=== PATIENT | male | born 1945 | race Caucasian/White ===

== ENCOUNTER → 2016-10-21 | Outpatient (CLI) | payer MEDICARE ==
[2016-10-21 10:18] LABS: Anion Gap 11 mmol/L; Blood Urea Nitrogen 23 mg/dL (9-20); Calcium 9.2 mg/dL (8.4-10.2); Carbon Dioxide 29 mmol/L (22-30); Chloride 102 mmol/L (98-107); Glucose 85 mg/dL (74-99); Non-African American GFR(MDRD) >60 (>60 ml/min/1.73 sqM); Potassium 4.3 mmol/L (3.5-5.1); Sodium 142 mmol/L (137-145)
[2016-10-21 11:00] LABS: Hemoglobin A1C 7.6 % (4.2-6.1)
== END | disposition home or self-care (01) ==
LOC: LABWHC1 09:02
PROVIDERS: ATTEND Internal Medicine
DX: E11.65 Type 2 diabetes mellitus with hyperglycemia (principal)
CPT/HCPCS: 36415; 80048; 83036

== ENCOUNTER → 2017-01-19 | Outpatient (CLI) | payer MEDICARE ==
[2017-01-19 08:10] LABS: Anion Gap 10 mmol/L; Blood Urea Nitrogen 21 mg/dL (9-20); Calcium 9.5 mg/dL (8.4-10.2); Carbon Dioxide 31 mmol/L (22-30); Chloride 101 mmol/L (98-107); Glucose 74 mg/dL (74-99); Non-African American GFR(MDRD) >60 (>60 ml/min/1.73 sqM); Potassium 3.9 mmol/L (3.5-5.1); Sodium 142 mmol/L (137-145)
[2017-01-19 15:59] LABS: Hemoglobin A1C 7.8 % (4.2-6.1)
== END | disposition home or self-care (01) ==
LOC: LABWHC1 06:54
PROVIDERS: ATTEND Internal Medicine
DX: E11.21 Type 2 diabetes mellitus with diabetic nephropathy (principal)
CPT/HCPCS: 36415; 80048; 83036

== ENCOUNTER → 2017-05-24 | Outpatient (CLI) | payer MEDICARE ==
[2017-05-24 07:28] LABS: EKG EKG PERFORMED
[2017-05-24 07:40] LABS: CH 32.3; CHCM 35.4; HCT 53.5 % (39.0-53.0); HDW 3.05; HGB 18.1 gm/dL (13.0-17.5); MCHC 33.8 g/dL (31.0-37.0); MCV 91.8 fL (80.0-100.0); Mean Platelet Volume 7.2; RBC 5.83 m/uL (4.30-5.90); RDW 14.7 % (11.5-15.5); WBC 9.9 k/uL (3.8-10.6)
[2017-05-24 07:42] LABS: Appearance,Urine Clear (Clear); Bilirubin,Urine Negative (Negative); Glucose,Urine (UA) Negative (Negative); Ketones,Urine Negative (Negative); Leukocyte Esterase,Urine Negative (Negative); Nitrite,Urine Negative (Negative); Protein,Urine Trace (Negative); Specific Gravity,Urine 1.011 (1.001-1.035); UA Billing (MACRO vs. MICRO) CHEM; Urobilinogen,Urine <2.0 mg/dL (<2.0)
[2017-05-24 07:50] LABS: INR 1.2 (<1.2); Partial Thromboplastin Time 24.5 sec (22.0-30.0); Prothrombin Time 11.7 sec (9.0-12.0)
[2017-05-24 07:51] LABS: ALT 31 U/L (21-72); AST 24 U/L (17-59); Alkaline Phosphatase 87 U/L (38-126); Anion Gap 11 mmol/L; Blood Urea Nitrogen 19 mg/dL (9-20); Calcium 9.5 mg/dL (8.4-10.2); Carbon Dioxide 25 mmol/L (22-30); Chloride 105 mmol/L (98-107); Glucose 93 mg/dL (74-99); Non-African American GFR(MDRD) >60 (>60 ml/min/1.73 sqM); Potassium 3.7 mmol/L (3.5-5.1); Sodium 141 mmol/L (137-145); Total Bilirubin 0.8 mg/dL (0.2-1.3); Total Protein 6.5 g/dL (6.3-8.2)
== END | disposition home or self-care (01) ==
LOC: LABPAT 06:57
PROVIDERS: ATTEND Orthopaedic Surgery
DX: Z01.810 Encounter for preprocedural cardiovascular examination (principal); M17.11 Unilateral primary osteoarthritis, right knee; Z01.812 Encounter for preprocedural laboratory examination
CPT/HCPCS: 80053; 81003; 85027; 85610; 85730; 87070; 93005

== ENCOUNTER 2017-05-31 05:43 | Inpatient (IN) | payer MEDICARE ==
[2017-05-24 13:09] VITALS: BMI 35.2
[~2017-05-31 05:43] MED LIST: ACETAMINOPHEN TAB 500 MG TAB PO ONE; MELOXICAM 7.5 MG TAB PO ONE; ceFAZolin 2 GM in SODIUM CHLORIDE 0.9% 100 ML IVPB ONE
[2017-05-31] MEDS ORDERED: HYDROmorphone 1 MG/ML 1 ML SYRINGE IVP PRN ×3 (05:53→09:33)
[2017-05-31] MEDS ORDERED: LIDOCAINE 1% 20 ML VIAL (10MG/ML) FOR IV START INTRADERMA PRN (05:53)
[2017-05-31] MEDS: LACTATED RINGERS 1,000 ML IV SCH (06:35)
[2017-05-31 06:39] LABS: Glucose,Whole Blood 180 mg/dL (75-99)
[2017-05-31] MEDS ORDERED: ONDANSETRON 4 MG/2 ML VIAL IVP ONE (06:53)
[2017-05-31] MEDS ORDERED: DEXAMETHASONE SOD PHOSPHATE 10 MG/ML 1 ML VIAL IV ONE (06:55)
[2017-05-31 07:02] LABS: INR 1.2 (<1.2); Prothrombin Time 11.8 sec (9.0-12.0)
[2017-05-31] MEDS ORDERED: PROPOFOL 10 MG/ML 20 ML VIAL IV ONE (07:08)
[2017-05-31] MEDS ORDERED: MIDAZOLAM 2 MG/2 ML VIAL ONE (07:08)
[2017-05-31] MEDS ORDERED: ePHEDrine SULFATE/0.9% NACL/PF 50 MG/5 ML SYRINGE IV ONE (07:08)
[2017-05-31] MEDS ORDERED: fentaNYL (PF) 50 MCG/ML 2 ML AMP ONE (07:08)
[2017-05-31] MEDS ORDERED: LACTATED RINGERS 1,000 ML IV ONE ×2 (07:50→08:48)
[2017-05-31] MEDS ORDERED: ceFAZolin 3,000 MG in SODIUM CHLORIDE 0.9% IRRIGATIO 3,000 ML IRRIGATION ONE (07:51)
[2017-05-31] MEDS ORDERED: MAGNESIUM HYDROXIDE 2,400 MG/10 ML CUP PO PRN (09:33)
[2017-05-31] MEDS ORDERED: HYDROcodone/APAP 5-325MG 1 EACH TAB PO PRN (09:33)
[2017-05-31] MEDS ORDERED: ONDANSETRON 4 MG/2 ML VIAL IVP PRN (09:33)
[2017-05-31] MEDS ORDERED: NALOXONE 0.4 MG/ML 1 ML VIAL IV PRN (09:33)
[2017-05-31 09:48] LABS: Glucose,Whole Blood 180 mg/dL (75-99)
--- NOTE | 2017-05-31 09:51 | XR ---
EXAMINATION TYPE: XR knee limited RT DATE OF EXAM: 05/31/2017 CLINICAL HISTORY: Right knee pain and arthritis status post total knee replacement. TECHNIQUE: Portable AP and crosstable lateral views of the right knee are obtained immediately posto peratively. COMPARISON: None FINDINGS: Metallic hardware from total right knee arthroplasty is seen and appears satisfactory in a lignment and position. There is evidence of recent surgery with diffuse subcutaneous gas noted. IMPRESSION: METALLIC HARDWARE FROM TOTAL RIGHT KNEE ARTHROPLASTY IS SATISFACTORY IN ALIGNMENT.
[2017-05-31] MEDS: HYDROmorphone 1 MG/ML 1 ML SYRINGE IVP PRN ×2 (10:42→14:40)
[2017-05-31 11:53] LABS: Glucose,Whole Blood 226 mg/dL (75-99)
[2017-05-31] MEDS: HYDROcodone/APAP 5-325MG 1 EACH TAB PO PRN ×2 (12:22→23:17)
--- NOTE | 2017-05-31 13:56 | P.CONS ---
History of Present Illness - Reason for Consult Consult date: 05/31/17 medical management Requesting physician: Christiano Chamberlain - Chief Complaint post right knee arthroplasty - History of Present Illness 71-year-old male with past medical history of hypertension and diabetes. Patient presented for an elective right knee total arthroplasty. Patient reports long-standing history of osteoarthritis with progressive worsening of his pain to a point where it's affecting his activities of daily living. Patient has had a knee replacement on his left knee with good outcomes in the decided to have his right knee replacement on recommendations from his orthopedic doctor. Patient is seen today postoperatively where he tolerated the procedure well and there were no immediate complications observed. Patient still has the Obrien catheter in place he did not pass gas as he did not eat yet. He denies any nausea or vomiting denies any abdominal pain chest pain or trouble breathing. He reports that his right knee pain is controlled and currently minimal. 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 Patient was started on Coumadin preop in anticipation of his knee surgery. Review of Systems Constitutional: Patient reports no fever, no chills, no night sweating, no significant weight changes Eyes: Patient reports no visual changes, no eye pain ENT: Patient reports no ear pain, no rhinorrhea, no sore throat Cardiovascular: Patient reports no chest pain, no exertional dyspnea, no peripheral leg edema, no orthopnea, no paroxysmal nocturnal dyspnea Respiratory:Patient reports no cough, no wheezing, no shortness of breath Gastrointestinal: Patient reports no diarrhea, no constipation, no nausea no vomiting, no abdominal pain Genitourinary: Patient reports no dysuria, no hematuria, no changes in urinary habits, no genital lesions Musculoskeletal: Patient reports no muscle pain, . Patient admits to chronic low back pain and degenerative joint disease Psychiatric: Patient reports no changes in mood or memory, no suicidal ideation , no anxiety Endocrine: Patient reports no heat intolerance, no cold intolerance, no excessive thirst, no polyuria Neurological: Patient reports no focal neurologic deficits, no weakness, no numbness, no tingling Hem/Lymphatic: Patient reports no bleeding tendency, no bruising, no swollen lymph glands Allergic/Immun: Patient reports no recent allergic reactions Skin: Patient reports no rashes, no pruritis, no ulcers Past Medical History Past Medical History: 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 RT KNEE OA. History of Any Multi-Drug Resistant Organisms: None Reported Past Surgical History: Joint Replacement, Orthopedic Surgery Additional Past Surgical History / Comment(s): TOTAL LT KNEE. RYLAND SHOULDERS. RYLAND CTR. RT GREAT TOE. SPLENECTOMY. Past Anesthesia/Blood Transfusion Reactions: Postoperative Nausea & Vomiting ( PONV) Smoking Status: Never smoker - Past Family History Brother(s) Family Medical History: Cancer Additional Family Medical History / Comment(s): History of Parkinson's disease in his father with questionable history of Chuy's disease Medications and Allergies Home Medications and Allergies Comment(s): Home medications were reviewed Home Medications Medication Instructions Recorded Confirmed Type Aspirin 325 mg PO DAILY 05/24/17 05/31/17 History Atenolol/Chlorthalidone 1 tab PO DAILY 05/24/17 05/31/17 History [Atenolol-Chlorthalidone 50-25] Atorvastatin [Lipitor] 10 mg PO DAILY 05/24/17 05/31/17 History Ibuprofen [Motrin] 800 mg PO TID PRN 05/24/17 05/31/17 History Insulin Aspart Protam & Aspart 60 unit SQ DAILY@0800,1700 05/24/17 05/31/17 History [NovoLOG MIX 70-30 Flexpen] Losartan Potassium [Losartan 100 mg PO DAILY 05/24/17 05/31/17 History Potassium] Potassium Chloride [K-Tab ER] 10 meq PO BID 05/24/17 05/31/17 History amLODIPine [Norvasc] 5 mg PO DAILY 05/24/17 05/31/17 History Warfarin Sodium [Coumadin] 7.5 mg PO DIRECTED 05/31/17 05/31/17 History Warfarin [Coumadin] 2.5 mg PO DAILY 05/31/17 05/31/17 History Allergies Allergy/AdvReac Type Severity Reaction Status Date / Time No Known Allergies Allergy Verified 05/31/17 06:19 Physical Exam Vitals: Vital Signs Temp Pulse Pulse Resp BP BP Pulse Ox 05/31/17 12:35 55 L 18 149/84 94 L 05/31/17 12:15 56 L 18 150/75 95 05/31/17 12:00 55 L 18 153/85 95 05/31/17 11:45 54 L 18 157/99 95 05/31/17 11:30 53 L 18 157/89 94 L 05/31/17 11:15 55 L 18 145/79 94 L 05/31/17 11:00 53 L 18 141/90 95 05/31/17 10:46 97.6 F 57 L 18 144/88 05/31/17 10:45 55 L 18 141/90 94 L 05/31/17 10:30 97.5 F L 54 L 18 149/89 94 L 05/31/17 10:10 50 L 16 134/75 97 05/31/17 09:55 48 L 16 132/70 94 L 05/31/17 09:40 49 L 16 126/73 97 05/31/17 09:25 96.8 F L 51 L 12 132/73 96 05/31/17 06:31 96.1 F L 56 L 18 177/92 100 Intake and Output 05/30/17 05/31/17 05/31/17 22:59 06:59 14:59 Intake Total 200 2151 Output Total 325 Balance 200 1826 Intake: IV 200 2151 Output: Urine 275 Estimated Blood Loss 50 Other: Weight 117.934 kg Patient Weight 06/01/17 06:59 Weight 117.934 kg Constitutional: No acute distress, conversant, pleasant Eyes: Anicteric sclerae, moist conjunctiva, no lid-lag Pupils equal round 2 mm bilaterally reactive to light ENMT: NC/AT Oropharynx clear, no erythema, exudates Neck: Supple, FROM, no masses, or JVD No carotid bruits No thyromegaly Lungs: Clear to auscultation Clear to percussion Normal respiratory effort, no accessory muscle use Cardiovascular: Heart regular in rate and rhythm, No murmurs, gallops, or rubs No peripheral edema Abdominal: Soft Nontender, no guarding, rebound or rigidity Abdomen moving with respiration Normoactive bowel sounds No hepatomegaly, No splenomegaly No palpable mass No abdominal wall hernia noted Skin: Normal temperature, tone, texture, turgor No induration No subcutaneous nodules No rash, lesions No ulcers Extremities: No digital cyanosis No clubbing Pedal pulses intact and symmetrical Radial pulses intact and symmetrical No calf tenderness Right knee with surgical dressing and ice pack in place Psychiatric: Alert and oriented to person, place and time Appropriate affect fair judgement Neuro Muscles Strength 5/5 in all 4 extremities , except slight limitation on examining evaluation over his right lower extremity due to postoperative status Sensation to light touch grossly present throughout Cranial nerves II-XII grossly intact No focal sensory deficits Lymphatics: no palpable cervical or supraclavicular , or inguinal lymph nodes Results Labs: Abnormal Lab Results - Last 24 Hours (Table) 05/31/17 05/31/17 05/31/17 Range/Units 06:25 06:28 09:45 INR 1.2 H (<1.2) POC Glucose (mg/dL) 180 H 180 H (75-99) mg/dL 05/31/17 Range/Units 11:48 INR (<1.2) POC Glucose (mg/dL) 226 H (75-99) mg/dL Assessment and Plan (1) Diabetes mellitus Status: Acute (2) Hypertension Status: Acute (3) DVT prophylaxis Status: Acute (4) Degenerative joint disease involving multiple joints Status: Acute (5) Osteoarthritis of right knee Status: Acute Plan: Patient doing well postoperative day 0 post right total knee arthroplasty Pain control Physical therapy Orthopedics the following Continue with insulin 70/30 60 units twice a day, with insulin sliding scale for corrective doses Continue with Lipitor Continue with home blood pressure medications Resume aspirin DVT prophylaxis per or for recommendations patient was started on Coumadin preop will continue with postop Coumadin for 28 days Follow ortho protocol with goal INR 2-3 Advance diet as tolerated Consider removing Obrien catheter and follow up with postvoid residual bladder scanning and inform M.D. and residual volume higher than 200 mL Thank you for allowing us to participate in the care of this patient. We will follow peripherally. Do not hesitate to contact us with questions. Someone can be reached from the [facility] hospitalist group at all hours of the day at [phone].
[2017-05-31] MEDS: SODIUM CHLORIDE 0.9% 1,000 ML IV SCH (14:40)
[2017-05-31] MEDS ORDERED: PROMETHAZINE 25 MG TAB PO PRN (16:28)
[2017-05-31 17:15] LABS: Glucose,Whole Blood 279 mg/dL (75-99)
[2017-05-31] MEDS ORDERED: PROMETHAZINE INJ 6.25 MG in SODIUM CHLORIDE 0.9% 50 ML IVPB PRN (17:17)
[2017-05-31] MEDS: ceFAZolin 2 GM in SODIUM CHLORIDE 0.9% 100 ML IVPB SCH ×2 (17:21→23:17)
[2017-05-31] MEDS: INSULN ASP PRT/INSULIN ASPART 100 UNIT/ML 10 ML VIAL SQ SCH (17:48)
[2017-05-31] MEDS: INSULIN LISPRO (humaLOG) 300 UNIT/3 ML VIAL SQ SCH ×2 (17:48→20:58)
[2017-05-31] MEDS ORDERED: WARFARIN 7.5 MG TAB PO ONE (18:00)
[2017-05-31 20:48] LABS: Glucose,Whole Blood 321 mg/dL (75-99)
[2017-05-31] MEDS: SENNOSIDES-DOCUSATE SODIUM 1 EACH TAB PO SCH (21:00)
[2017-05-31] MEDS: POTASSIUM CHLORIDE ER 10 MEQ TAB.ER.PRT PO SCH (21:00)
[2017-06-01] MEDS: SODIUM CHLORIDE 0.9% 1,000 ML IV SCH ×3 (02:32→17:58)
[2017-06-01] MEDS: LACTATED RINGERS 1,000 ML IV SCH (02:33)
[2017-06-01] MEDS: HYDROcodone/APAP 5-325MG 1 EACH TAB PO PRN ×3 (06:14→19:54)
[2017-06-01 07:01] LABS: Glucose,Whole Blood 226 mg/dL (75-99)
[2017-06-01 07:31] LABS: Basophils % (A) 0 %; CH 30.8; CHCM 34.5; Eosinophils % (A) 0 %; HCT 43.8 % (39.0-53.0); HDW 2.95; HGB 15.4 gm/dL (13.0-17.5); Luc # (Auto) 0.24; Luc % (Auto) 2; Lymphocytes % (A) 19 %; MCH 31.5 pg (25.0-35.0); MCHC 35.1 g/dL (31.0-37.0); MCV 89.8 fL (80.0-100.0); Mean Platelet Volume 6.8; Monocytes # (A) 1.1 k/uL (0-1.0); Monocytes % (A) 7 %; Neutrophils # (A) 11.1 k/uL (1.3-7.7); Neutrophils % (A) 72 %; RBC 4.88 m/uL (4.30-5.90); RDW 13.8 % (11.5-15.5); WBC 15.5 k/uL (3.8-10.6); WBC (Perox) 15.35
[2017-06-01 07:33] LABS: Anion Gap 7 mmol/L; Blood Urea Nitrogen 28 mg/dL (9-20); Calcium 8.7 mg/dL (8.4-10.2); Carbon Dioxide 29 mmol/L (22-30); Chloride 98 mmol/L (98-107); Glucose 234 mg/dL (74-99); Non-African American GFR(MDRD) >60 (>60 ml/min/1.73 sqM); Potassium 5.1 mmol/L (3.5-5.1); Sodium 134 mmol/L (137-145)
[2017-06-01 07:35] LABS: INR 1.6 (<1.2); Prothrombin Time 15.3 sec (9.0-12.0)
[2017-06-01] MEDS: INSULIN LISPRO (humaLOG) 300 UNIT/3 ML VIAL SQ SCH ×4 (08:11→20:03)
[2017-06-01] MEDS: amLODIPine 5 MG TAB PO SCH (08:11)
[2017-06-01] MEDS: INSULN ASP PRT/INSULIN ASPART 100 UNIT/ML 10 ML VIAL SQ SCH ×2 (08:11→18:04)
[2017-06-01] MEDS: POTASSIUM CHLORIDE ER 10 MEQ TAB.ER.PRT PO SCH ×2 (08:12→19:54)
[2017-06-01] MEDS: ATENOLOL 50 MG TAB PO SCH (08:12)
[2017-06-01] MEDS: LOSARTAN 50 MG TAB PO SCH (08:12)
[2017-06-01] MEDS: CHLORTHALIDONE 25 MG TAB PO SCH (08:12)
[2017-06-01] MEDS: ATORVASTATIN 10 MG TAB PO SCH (08:12)
--- NOTE | 2017-06-01 08:28 | P.PN ---
Subjective Principal diagnosis: Primary osteoarthritis right knee. Status post total right knee arthroplasty. This is a 71-year-old male who is status post total right knee arthroplasty. He is doing well from an orthopedic standpoint. He has no new complaints or concerns today. Vital signs and labs are stable. Objective - Vital Signs Vital signs: Vital Signs Temp 98.0 F 06/01/17 07:00 Pulse 66 06/01/17 07:00 Resp 12 06/01/17 07:00 BP 154/68 06/01/17 07:00 Pulse Ox 94 L 06/01/17 07:00 Intake & Output 05/31/17 06/01/17 06/01/17 18:59 06:59 18:59 Intake Total 3231 1300 Output Total 1600 1100 Balance 1631 200 Weight 117.934 kg Intake: IV 2151 Intake, IV Titration 500 300 Amount Lactated Ringers 1,000 ml 500 As IV .STK-MED ONE Rx#: [id number] Sodium Chloride 0.9% 1, 300 000 ml @ 100 mls/hr IV . Q10H [facility] Rx#:[id number] Oral 580 1000 Output: Urine 1550 Stool 1100 Estimated Blood Loss 50 Other: Voiding Method Indwelling Catheter - Exam This is a pleasant 71-year-old male in no acute distress. He is alert and oriented 3. Exam of the right knee reveals that his incision looks good. There is no erythema or ecchymosis. There is mild soft tissue swelling about the knee. The Dermabond glue is intact. There is no drainage on the dressing. He has full foot and ankle motion without difficulty or pain. Neurovascular status to the lower extremity is intact. - Labs CBC & Chem 7: 06/01/17 06:42 06/01/17 06:42 Labs: Abnormal Lab Results - Last 24 Hours (Table) 05/31/17 05/31/17 05/31/17 Range/Units 09:45 11:48 17:09 WBC (3.8-10.6) k/uL Neutrophils # (1.3-7.7) k/uL Monocytes # (0-1.0) k/uL PT (9.0-12.0) sec INR (<1.2) Sodium (137-145) mmol/L BUN (9-20) mg/dL Glucose (74-99) mg/dL POC Glucose (mg/dL) 180 H 226 H 279 H (75-99) mg/dL 05/31/17 06/01/17 06/01/17 Range/Units 20:47 06:42 06:42 WBC 15.5 H (3.8-10.6) k/uL Neutrophils # 11.1 H (1.3-7.7) k/uL Monocytes # 1.1 H (0-1.0) k/uL PT 15.3 H (9.0-12.0) sec INR 1.6 H (<1.2) Sodium (137-145) mmol/L BUN (9-20) mg/dL Glucose (74-99) mg/dL POC Glucose (mg/dL) 321 H (75-99) mg/dL 06/01/17 06/01/17 Range/Units 06:42 06:58 WBC (3.8-10.6) k/uL Neutrophils # (1.3-7.7) k/uL Monocytes # (0-1.0) k/uL PT (9.0-12.0) sec INR (<1.2) Sodium 134 L (137-145) mmol/L BUN 28 H (9-20) mg/dL Glucose 234 H (74-99) mg/dL POC Glucose (mg/dL) 226 H (75-99) mg/dL Assessment and Plan (1) Status post total knee replacement, right Status: Acute (2) Osteoarthritis of right knee Status: Acute Plan: The clinical findings are discussed the patient. We'll begin physical therapy today. We are planning discharge to home tomorrow versus Tuesday.
[2017-06-01 14:07] LABS: Glucose,Whole Blood 244 mg/dL (75-99)
[2017-06-01 14:08] LABS: Glucose,Whole Blood 236 mg/dL (75-99)
[2017-06-01 17:00] LABS: Glucose,Whole Blood 315 mg/dL (75-99)
[2017-06-01] MEDS ORDERED: WARFARIN 5 MG TAB PO SCH (18:00)
--- NOTE | 2017-06-01 19:07 | P.PN ---
Subjective Principal diagnosis: Patient seen and examined today in follow-up of his diabetes postop management 71-year-old male with past medical history of hypertension and diabetes. Patient presented for an elective right knee total arthroplasty. He denies any chest pain or trouble patient reports that pain is well tolerated, reports beginning physical therapy today. He denies any chest pain or trouble breathing. By reviewing his lab seems like his blood sugar is running high. Otherwise Obrien catheter was removed today patient passed urine, vision passing gases no bowel movement yet. He is tolerating by mouth intake denies any nausea vomiting. Patient possibly will be discharged tomorrow or day after Objective - Vital Signs Vital signs: Vital Signs Temp 98.5 F 06/01/17 14:34 Pulse 69 06/01/17 14:34 Resp 16 06/01/17 14:34 BP 156/89 06/01/17 14:34 Pulse Ox 94 L 06/01/17 14:34 Intake & Output 05/31/17 06/01/17 06/01/17 18:59 06:59 18:59 Intake Total 3231 1300 Output Total 1600 1100 350 Balance 1631 200 -350 Weight 117.934 kg Intake: IV 2151 Intake, IV Titration 500 300 Amount Lactated Ringers 1,000 ml 500 As IV .K-MED ONE Rx#: [id number] Sodium Chloride 0.9% 1, 300 000 ml @ 100 mls/hr IV . Q10H [facility] Rx#:[id number] Oral 580 1000 Output: Urine 1550 350 Uretheral (Obrien) 350 Stool 1100 Estimated Blood Loss 50 Other: Voiding Method Indwelling Catheter # Voids 2 - Exam Constitutional: vital signs stable, Not in acute distress, pleasant, conversant Lungs: Clear to auscultation bilaterally, clear to percussion, normal respiratory effort Cardiovascular: Regular rate and rhythm, no murmurs, no gallops, no rubs, no peripheral edema Extremities: Right leg is wrapped with surgical dressing, patient has limited range of motion of right knee due to tight dressing, peripheral pulses palpable and equal over bilateral radial arteries and dorsalis pedis artery, no calf muscle tenderness Psych: Alert, oriented to place, person and time Labs reviewed - Labs CBC & Chem 7: 06/01/17 06:42 06/01/17 06:42 Labs: Abnormal Lab Results - Last 24 Hours (Table) 05/31/17 06/01/17 06/01/17 Range/Units 20:47 06:42 06:42 WBC 15.5 H (3.8-10.6) k/uL Neutrophils # 11.1 H (1.3-7.7) k/uL Monocytes # 1.1 H (0-1.0) k/uL PT 15.3 H (9.0-12.0) sec INR 1.6 H (<1.2) Sodium (137-145) mmol/L BUN (9-20) mg/dL Glucose (74-99) mg/dL POC Glucose (mg/dL) 321 H (75-99) mg/dL 06/01/17 06/01/17 06/01/17 Range/Units 06:42 06:58 11:24 WBC (3.8-10.6) k/uL Neutrophils # (1.3-7.7) k/uL Monocytes # (0-1.0) k/uL PT (9.0-12.0) sec INR (<1.2) Sodium 134 L (137-145) mmol/L BUN 28 H (9-20) mg/dL Glucose 234 H (74-99) mg/dL POC Glucose (mg/dL) 226 H 244 H (75-99) mg/dL 06/01/17 06/01/17 Range/Units 12:54 16:55 WBC (3.8-10.6) k/uL Neutrophils # (1.3-7.7) k/uL Monocytes # (0-1.0) k/uL PT (9.0-12.0) sec INR (<1.2) Sodium (137-145) mmol/L BUN (9-20) mg/dL Glucose (74-99) mg/dL POC Glucose (mg/dL) 236 H 315 H (75-99) mg/dL Assessment and Plan (1) Diabetes mellitus Status: Acute (2) Hypertension Status: Acute (3) DVT prophylaxis Status: Acute (4) Degenerative joint disease involving multiple joints Status: Acute (5) Osteoarthritis of right knee Status: Acute Plan: Patient is seen today postoperative day #1 doing well pain is well controlled in tolerated. To perspective physical therapy Further management per or throat Blood sugars are running high continue with long-acting insulin at current home dose. We'll add short-acting insulin 3 units 3 times a day prior to meals. Continue seen you with insulin sliding scale for corrective doses Continue with Coumadin dosing by pharmacy per orthopedic protocol for DVT prophylaxis this should be continued after discharge per orthopedic recommendations Continue with physical therapy Mild leukocytosis and afebrile this is most likely secondary to postoperative period reactive leukocytosis Continue with Lipitor, aspirin systolic Blood pressure in the 150s, optimize pain control Patient is stable from internal medicine standpoint for discharge
[2017-06-01] MEDS: SENNOSIDES-DOCUSATE SODIUM 1 EACH TAB PO SCH (19:54)
[2017-06-01 19:59] LABS: Glucose,Whole Blood 284 mg/dL (75-99)
[2017-06-02] MEDS: HYDROcodone/APAP 5-325MG 1 EACH TAB PO PRN ×2 (03:54→11:20)
[2017-06-02] MEDS: SODIUM CHLORIDE 0.9% 1,000 ML IV SCH (05:15)
[2017-06-02] MEDS: LACTATED RINGERS 1,000 ML IV SCH (05:15)
[2017-06-02 07:10] LABS: Glucose,Whole Blood 103 mg/dL (75-99)
[2017-06-02 07:20] VITALS: BP 170/78; PULSE 68; RESP 12; TEMP 98
[2017-06-02 07:22] LABS: INR 1.9 (<1.2); Prothrombin Time 18.3 sec (9.0-12.0)
[2017-06-02] MEDS: INSULIN LISPRO (humaLOG) 300 UNIT/3 ML VIAL SQ SCH ×4 (07:26→12:28)
[2017-06-02 07:27] LABS: Glucose,Whole Blood 110 mg/dL (75-99)
[2017-06-02 07:34] LABS: CH 30.9; CHCM 34.8; HCT 43.2 % (39.0-53.0); HGB 15.3 gm/dL (13.0-17.5); MCH 31.8 pg (25.0-35.0); MCHC 35.5 g/dL (31.0-37.0); MCV 89.4 fL (80.0-100.0); RBC 4.83 m/uL (4.30-5.90); RDW 13.8 % (11.5-15.5); WBC 15.9 k/uL (3.8-10.6); WBC (Perox) 16.22
[2017-06-02] MEDS: ATENOLOL 50 MG TAB PO SCH (07:47)
[2017-06-02] MEDS: LOSARTAN 50 MG TAB PO SCH (07:48)
[2017-06-02] MEDS: ATORVASTATIN 10 MG TAB PO SCH (07:48)
[2017-06-02] MEDS: POTASSIUM CHLORIDE ER 10 MEQ TAB.ER.PRT PO SCH (07:48)
[2017-06-02] MEDS: CHLORTHALIDONE 25 MG TAB PO SCH (07:48)
[2017-06-02] MEDS: INSULN ASP PRT/INSULIN ASPART 100 UNIT/ML 10 ML VIAL SQ SCH (07:54)
[2017-06-02 07:57] LABS: Add Differential Manual Differential
[2017-06-02 08:01] LABS: Nucleated Red Blood Cells 0 /100 WBC (0-0); Total Cells Counted 100
--- NOTE | 2017-06-02 08:28 | P.DS ---
Providers Date of admission: 05/31/17 05:43 Expected date of discharge: 06/02/17 Attending physician: Christiano Chamberlain Consults: 05/31/17 09:33 Consult Physician Routine Consulting Provider: Te Tyler Consult Reason/Comments: Medical management; manage anti-coagualtion Do you want consulting provider notified?: Yes 05/31/17 11:03 Consult Physician Routine Consulting Provider: Cortez Daley Consult Reason/Comments: medical management Do you want consulting provider notified?: Already Contacted Primary care physician: Te Tyler - Discharge Diagnosis(es) (1) Status post total knee replacement, right Current Visit: Yes Status: Acute (2) Osteoarthritis of right knee Current Visit: Yes Status: Acute Hospital Course: This is a 71-year-old male who was last seen with complaint of continued right knee pain. The patient has a known history of degenerative arthritis of the right knee and presents to discuss surgical options. After discussion and consideration the patient elects to proceed with total right knee arthroplasty. The patient is seen preoperatively by his primary care physician and cleared for surgery. The patient is admitted to [facility] for total right knee arthroplasty. The procedure is performed without complication or sequelae. Patient is doing well postoperatively. Vital signs are stable at discharge. Labs are stable at discharge. the patient is ambulating well with walker with minimal assistance. He has a slight amount of drainage the distal incision. Otherwise Dermabond glue is intact. There is a small blister to the distal lateral aspect of the incision which is intact. The patient is discharged to home on postop day #2 pending medical clearance. Please see orders and refer to the [facility] rec for accurate list of medications. Patient Condition at Discharge: Good Plan - Discharge Summary New Discharge Prescriptions: New HYDROcodone/APAP 5-325MG [[place] 5-325] 1 - 2 each PO Q4-6H PRN #90 tab PRN Reason: Pain Aspirin 325 mg PO BID #60 tab Warfarin [Coumadin] 2.5 mg PO Q2D #1 tab Sennosides-Docusate Sodium [Senokot-S] 1 tab PO BID #60 tablet No Action amLODIPine [Norvasc] 5 mg PO DAILY Atenolol/Chlorthalidone [Atenolol-Chlorthalidone 50-25] 1 tab PO DAILY Potassium Chloride [K-Tab ER] 10 meq PO BID Ibuprofen [Motrin] 800 mg PO TID PRN PRN Reason: Pain Losartan Potassium [Losartan Potassium] 100 mg PO DAILY Insulin Aspart Protam & Aspart [NovoLOG MIX 70-30 Flexpen] 60 unit SQ DAILY@ 0800,1700 Aspirin 325 mg PO DAILY Atorvastatin [Lipitor] 10 mg PO DAILY Warfarin [Coumadin] 2.5 mg PO DAILY Warfarin Sodium [Coumadin] 7.5 mg PO DIRECTED Discharge Medication List Aspirin 325 mg PO DAILY 05/24/17 [History] Atenolol/Chlorthalidone [Atenolol-Chlorthalidone 50-25] 1 tab PO DAILY 05/24/17 [History] Atorvastatin [Lipitor] 10 mg PO DAILY 05/24/17 [History] Ibuprofen [Motrin] 800 mg PO TID PRN 05/24/17 [History] Insulin Aspart Protam & Aspart [NovoLOG MIX 70-30 Flexpen] 60 unit SQ DAILY@0800 ,1700 05/24/17 [History] Losartan Potassium [Losartan Potassium] 100 mg PO DAILY 05/24/17 [History] Potassium Chloride [K-Tab ER] 10 meq PO BID 05/24/17 [History] amLODIPine [Norvasc] 5 mg PO DAILY 05/24/17 [History] Warfarin Sodium [Coumadin] 7.5 mg PO DIRECTED 05/31/17 [History] Warfarin [Coumadin] 2.5 mg PO DAILY 05/31/17 [History] Aspirin 325 mg PO BID #60 tab 06/01/17 [Rx] HYDROcodone/APAP 5-325MG [[place] 5-325] 1 - 2 each PO Q4-6H PRN #90 tab 06/01/17 [Rx] Sennosides-Docusate Sodium [Senokot-S] 1 tab PO BID #60 tablet 06/01/17 [Rx] Warfarin [Coumadin] 2.5 mg PO Q2D #1 tab 06/01/17 [Rx] Follow up Appointment(s)/Referral(s): [facility], [NON-STAFF] - As Needed Christiano Chamberlain DO [Doctor of Osteopathic Medicine] - 2 Weeks Ambulatory/Diagnostic Orders: Continuous Passive Motion (CPM) Machine [DME.AMB1] Time Frame: 3 Weeks, Facility : [facility], Location: Case Management Discharge Disposition: HOME WITH HOME HEALTH SERVICES
[2017-06-02] MEDS: amLODIPine 5 MG TAB PO SCH (09:24)
[2017-06-02 11:27] LABS: Glucose,Whole Blood 183 mg/dL (75-99)
--- NOTE | 2017-06-02 11:49 | P.PN ---
Subjective Principal diagnosis: Patient seen and examined today in follow-up of his diabetes postop management 71-year-old male with past medical history of hypertension and diabetes. Patient presented for an elective right knee total arthroplasty. He denies any chest pain or trouble patient reports that pain is well tolerated, reports beginning physical therapy today. He denies any chest pain or trouble breathing. patient seen and examined today, he is doing well, denies any chest pain or SOB , denies any fever or chills, he is able to participate with therapy and he is happy with the outcomes of his surgery. I discussed with him the possibility of requiring a preprandial short acting insulin , but he preferred to continue with his current OP regimen of insulin and to defer further management to his PCP . Objective - Vital Signs Vital signs: Vital Signs Temp 98 F 06/02/17 07:00 Pulse 68 06/02/17 07:00 Resp 12 06/02/17 07:00 BP 170/78 06/02/17 07:00 Pulse Ox 96 06/02/17 07:00 Intake & Output 06/01/17 06/02/17 06/02/17 18:59 06:59 18:59 Intake Total 750 Output Total 350 600 Balance -350 150 Weight 117.934 kg Intake: Oral 750 Output: Urine 350 600 Uretheral (Obrien) 350 Other: Voiding Method Indwelling Catheter # Voids 2 1 - Exam Constitutional: vital signs stable, Not in acute distress, pleasant, conversant Lungs: Clear to auscultation bilaterally ,no wheezes , rhonci or rales , normal respiratory effort Cardiovascular: Regular rate and rhythm, no murmurs, no gallops, no rubs, no peripheral edema Extremities: Right knee is wrapped with surgical dressing, patient is able to move his right LE with no pain , no calf muscle tenderness Psych: Alert, oriented to place, person and time Labs reviewed - Labs CBC & Chem 7: 06/02/17 06:34 06/01/17 06:42 Labs: Abnormal Lab Results - Last 24 Hours (Table) 06/01/17 06/01/17 06/01/17 Range/Units 11:24 12:54 16:55 WBC (3.8-10.6) k/uL Neutrophils # (Manual) (1.3-7.7) k/uL Lymphocytes # (Manual) (1.0-4.8) k/uL Monocytes # (Manual) (0-1.0) k/uL PT (9.0-12.0) sec INR (<1.2) POC Glucose (mg/dL) 244 H 236 H 315 H (75-99) mg/dL 06/01/17 06/02/17 06/02/17 Range/Units 19:45 06:34 06:34 WBC 15.9 H (3.8-10.6) k/uL Neutrophils # (Manual) 7.79 H (1.3-7.7) k/uL Lymphocytes # (Manual) 4.93 H (1.0-4.8) k/uL Monocytes # (Manual) 2.54 H (0-1.0) k/uL PT 18.3 H (9.0-12.0) sec INR 1.9 H (<1.2) POC Glucose (mg/dL) 284 H (75-99) mg/dL 06/02/17 06/02/17 06/02/17 Range/Units 06:54 07:24 11:25 WBC (3.8-10.6) k/uL Neutrophils # (Manual) (1.3-7.7) k/uL Lymphocytes # (Manual) (1.0-4.8) k/uL Monocytes # (Manual) (0-1.0) k/uL PT (9.0-12.0) sec INR (<1.2) POC Glucose (mg/dL) 103 H 110 H 183 H (75-99) mg/dL Assessment and Plan (1) Diabetes mellitus Status: Acute (2) Hypertension Status: Acute (3) DVT prophylaxis Status: Acute (4) Degenerative joint disease involving multiple joints Status: Acute (5) Osteoarthritis of right knee Status: Acute Plan: Patient is seen today postoperative day #2 doing well pain is well controlled patient is being discharged home per orthopedics blood sugar is better controlled today, his A1C is 7.8 , he was provided with a script for blood sugar monitoring , I suggested starting a short acting preprandial insulin , but he preferred to defer any further management to further discussion with his PCP, based on how his blood sugar will be running once he is at home . DVT PPx post op deferred to orthopedic. hemoglobin stable post op Mild leukocytosis and afebrile this is most likely reactive to postoperative period Patient is stable from internal medicine standpoint for discharge
--- NOTE | 2017-06-03 12:25 | OP ---
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 POSTOPERATIVE DIAGNOSIS: Degenerative joint disease right knee. PROCEDURE PERFORMED: Right total knee replacement arthroplasty utilizing a Mary Press-Fit component. DESCRIPTION OF PROCEDURE: The patient was taken to the operative suite and placed in supine position. Spinal anesthesia was performed . Betadine prep was carried out from mid thigh and mid calf. Sterile drapes applied in the usual manner. A parapatellar incision was developed. The median retinaculum was incised patellar everted and dislocated laterally. The knee brought into flexion position held in the leg borrero. The intramedullary cutting enmanuel was initiated and was . The size 8 femoral component was and initiated. Provisionary component was impacted into position and . The tibial cutting guide was brought into alignment and appropriate was developed. The wafer was removed and the medial and lateral meniscus were excised. A size 6 tibial tray was selected. The tray was marked for position and appropriate peg holes developed. The knee had been examined had been inserted and selected . The patella was shaped with shelving planer. A size 32 was selected and secured to the for position. The bone was examined and component. All provisionary components were removed and Pulsavac antibiotic solution utilized femoral component. The was a size 8, femoral size 6 trabecular metal three hole peg plate inserted and holes impacted. The final femoral component was impacted into position. patella components inserted peg holes and impacted. The final size 12 mm polyethylene component was inserted into the and locked into position. The knee was placed into slight flexion and pneumatic tourniquet was deflated. The knee was irrigated with Pulsavac antibiotic solution. The superficial . The knee was placed in slight flexion and pneumatic tourniquet . The medial retinaculum was approximated with #3 Vicryl suture in horizontal mattress fashion. #2 quill sutures were used to reenforce in a running suture fashion. 2- 0 Vicryl suture was utilized to close the subcutaneous tissue. A 3-0 Quill suture was utilized for subcuticular closure. Dermabond was utilized to secure the wound. Betadine, Sterile pressure dressing was applied. Pneumatic tourniquet was deflated. The patient transferred to the recovery room in satisfactory postop condition. GROSS PATHOLOGY: There was compartmental right knee. MMODL / IJN: [id number] /
== END 2017-06-02 13:05 | disposition home health service (06) | DRG 470 ==
LOC: 2ORMAIN 05:43 → 3SUR 09:30
PROVIDERS: ADMIT Orthopaedic Surgery; ATTEND Orthopaedic Surgery
PROC: 0SRC0JA Replacement of Right Knee Joint with Synthetic Substitute, Uncemented, Open Approach (ICD-10-PCS; principal; 2017-05-31 07:00)
DX: M17.11 Unilateral primary osteoarthritis, right knee (principal); I10 Essential (primary) hypertension; E11.9 Type 2 diabetes mellitus without complications; E78.5 Hyperlipidemia, unspecified; Z96.652 Presence of left artificial knee joint; Z82.0 Family history of epilepsy and other diseases of the nervous system; Z79.899 Other long term (current) drug therapy; Z90.81 Acquired absence of spleen; Z85.72 Personal history of non-Hodgkin lymphomas; Z79.82 Long term (current) use of aspirin; Z79.4 Long term (current) use of insulin; Z79.01 Long term (current) use of anticoagulants; Z79.1 Long term (current) use of non-steroidal anti-inflammatories (NSAID)
CPT/HCPCS: 80048; 85025; 85610; 88300

== ENCOUNTER 2017-06-09 14:51 | Emergency (ER) | payer MEDICARE ==
[2017-06-09 15:15] VITALS: RESP 18
[2017-06-09] MEDS ORDERED: RX INFO: IV CONTRAST WAS GIVEN 1 EACH MISC MISCELLANE PRN (15:27)
[2017-06-09] MEDS ORDERED: SODIUM CHLORIDE 0.9% 500 ML IV STA (15:27)
[2017-06-09 16:21] LABS: Basophils # (A) 0.1 k/uL (0-0.2); Basophils % (A) 0 %; CH 31.3; CHCM 35.4; Eosinophils # (A) 0.1 k/uL (0-0.7); Eosinophils % (A) 1 %; HDW 3.28; HGB 16.3 gm/dL (13.0-17.5); Luc # (Auto) 0.21; Luc % (Auto) 2; Lymphocytes # (A) 2.3 k/uL (1.0-4.8); Lymphocytes % (A) 20 %; MCH 30.8 pg (25.0-35.0); MCHC 34.6 g/dL (31.0-37.0); Mean Platelet Volume 6.4; Monocytes # (A) 0.8 k/uL (0-1.0); Monocytes % (A) 6 %; Neutrophils # (A) 8.4 k/uL (1.3-7.7); Neutrophils % (A) 71 %; RBC 5.28 m/uL (4.30-5.90); RDW 14.3 % (11.5-15.5); WBC 11.8 k/uL (3.8-10.6); WBC (Perox) 11.51
[2017-06-09 16:22] LABS: Appearance,Urine Clear (Clear); Bilirubin,Urine Negative (Negative); Glucose,Urine (UA) 1+ (Negative); Ketones,Urine Negative (Negative); Leukocyte Esterase,Urine Negative (Negative); Nitrite,Urine Negative (Negative); Protein,Urine Trace (Negative); Specific Gravity,Urine 1.013 (1.001-1.035); UA Billing (MACRO vs. MICRO) CHEM; Urobilinogen,Urine <2.0 mg/dL (<2.0)
[2017-06-09 16:29] LABS: ALT 38 U/L (21-72); AST 33 U/L (17-59); Alkaline Phosphatase 126 U/L (38-126); Amylase 31 U/L (30-110); Anion Gap 10 mmol/L; Blood Urea Nitrogen 21 mg/dL (9-20); Calcium 9.6 mg/dL (8.4-10.2); Carbon Dioxide 29 mmol/L (22-30); Chloride 98 mmol/L (98-107); Glucose 192 mg/dL (74-99); Non-African American GFR(MDRD) >60 (>60 ml/min/1.73 sqM); Potassium 4.2 mmol/L (3.5-5.1); Sodium 137 mmol/L (137-145); Total Bilirubin 1.4 mg/dL (0.2-1.3); Total Protein 6.7 g/dL (6.3-8.2)
--- NOTE | 2017-06-09 17:24 | CT ---
EXAMINATION TYPE: CT abdomen pelvis w con DATE OF EXAM: 06/09/2017 COMPARISON: NONE HISTORY: Pain with Constipation and difficulty urinating. CT DLP: 1785 mGycm. Automated exposure control for dose reduction was used. TECHNIQUE: Helical acquisition of images was performed from the lung bases through the pelvis. CONTRAST: Performed without Oral Contrast and with IV Contrast, patient injected with 100 mL of Omnip aque 300. FINDINGS: LUNG BASES: There is no acute process, but coronary calcifications are incidentally noted. LIVER/GB: No significant abnormality is appreciated, but cholelithiasis is noted. PANCREAS: No significant abnormality is seen. SPLEEN: No significant abnormality is seen. ADRENALS: No significant abnormality is seen, but a homogeneous fat attenuation right adrenal nodule is noted, consistent with incidental myelolipoma. KIDNEYS: No significant abnormality is seen, but a 3 cm right simple appearing renal cyst noted. FREE AIR: No free air is visualized. RETROPERITONEAL ADENOPATHY: None visualized in the abdomen. REPRODUCTIVE ORGANS: No significant abnormality is seen URINARY BLADDER: Obrien catheter in place, with an undistended bladder at the moment of CT imaging. T he prostate has unremarkable CT appearance. PELVIC ADENOPATHY: There is no mike adenopathy, but bilateral small lymph nodes are noted in the ob turator and external iliac mckay positions, right greater than left. OSSEOUS STRUCTURES: No significant abnormality is seen. BOWEL: No significant abnormality is seen. OTHER: The vasculature is unremarkable. IMPRESSION: 1. NO ACUTE ABDOMINOPELVIC PROCESS. 2. INCIDENTAL FINDINGS NOTED.
[2017-06-09] MEDS ORDERED: NA PHOS,M-B/NA PHOS,DI-BA 133 ML ENEMA RECTAL STA (17:34)
[2017-06-09] MEDS ORDERED: MAGNESIUM CITRATE 296 ML BOTTLE PO ONE (17:35)
--- NOTE | 2017-06-09 17:49 | ED ---
Abdominal Pain HPI - General Chief Complaint: Abdominal Pain Stated Complaint: post knee surgery-no bowel movement Time Seen by Provider: 06/09/17 15:20 Source: patient, family Mode of arrival: ambulatory Limitations: no limitations - Related Data Home Medications Medication Instructions Recorded Confirmed Atenolol/Chlorthalidone 1 tab PO DAILY 05/24/17 06/09/17 [Atenolol-Chlorthalidone 50-25] Atorvastatin [Lipitor] 10 mg PO DAILY 05/24/17 06/09/17 Insulin Aspart Protam & Aspart 60 unit SQ DAILY@0800,1700 05/24/17 06/09/17 [NovoLOG MIX 70-30 Flexpen] Losartan Potassium [Losartan 100 mg PO DAILY 05/24/17 06/09/17 Potassium] Potassium Chloride [K-Tab ER] 10 meq PO BID 05/24/17 06/09/17 amLODIPine [Norvasc] 5 mg PO DAILY 05/24/17 06/09/17 HYDROcodone/APAP 5-325MG [Coleman 1 - 2 tab PO Q4-6H PRN 06/09/17 06/09/17 5-325] Warfarin [Coumadin] 2.5 mg PO Q48H 06/09/17 06/09/17 Previous Rx's Medication Instructions Recorded Sennosides-Docusate Sodium 1 tab PO BID #60 tablet 06/01/17 [Senokot-S] Allergies Allergy/AdvReac Type Severity Reaction Status Date / Time No Known Allergies Allergy Verified 06/09/17 16:11 Review of Systems ROS Statement: Those systems with pertinent positive or pertinent negative responses have been documented in the HPI. ROS Other: All systems not noted in ROS Statement are negative. Past Medical History Past Medical History: Cancer, Diabetes Mellitus, Hyperlipidemia, Hypertension, Osteoarthritis (OA) Additional Past Medical History / Comment(s): SPLEEN CA, 2006, REMOVED. RT KNEE OA. History of Any Multi-Drug Resistant Organisms: None Reported Past Surgical History: Joint Replacement, Orthopedic Surgery Additional Past Surgical History / Comment(s): TOTAL LT KNEE. [facility] SHOULDERS. [facility] CTR. RT GREAT TOE. SPLENECTOMY. Past Anesthesia/Blood Transfusion Reactions: Postoperative Nausea & Vomiting ( PONV) Past Psychological History: No Psychological Hx Reported Smoking Status: Never smoker Past Alcohol Use History: None Reported Past Drug Use History: None Reported - Past Family History Brother(s) Family Medical History: Cancer Additional Family Medical History / Comment(s): History of Parkinson's disease in his father with questionable history of [place]uy's disease General Exam Limitations: no limitations General appearance: alert, in no apparent distress Head exam: Present: atraumatic, normocephalic, normal inspection Eye exam: Present: normal appearance, PERRL, EOMI. Absent: scleral icterus, conjunctival injection, periorbital swelling ENT exam: Present: normal exam, mucous membranes moist Neck exam: Present: normal inspection. Absent: tenderness, meningismus, lymphadenopathy Respiratory exam: Present: normal lung sounds bilaterally. Absent: respiratory distress, wheezes, rales, rhonchi, stridor Cardiovascular Exam: Present: regular rate, normal rhythm, normal heart sounds. Absent: systolic murmur, diastolic murmur, rubs, gallop, clicks GI/Abdominal exam: Present: soft, normal bowel sounds. Absent: distended, tenderness, guarding, rebound, rigid Extremities exam: Present: normal inspection, full ROM, normal capillary refill. Absent: tenderness, pedal edema, joint swelling, calf tenderness Back exam: Present: normal inspection Neurological exam: Present: alert, oriented X3, CN II-XII intact Psychiatric exam: Present: normal affect, normal mood Skin exam: Present: warm, dry, intact, normal color. Absent: rash Course Vital Signs 06/09/17 15:12 Temperature 98.6 F Pulse Rate 73 Respiratory 18 Rate Blood Pressure 122/61 O2 Sat by Pulse 98 Oximetry Medical Decision Making - Medical Decision Making Patient complains of belly pain. CT is negative. - Lab Data Result diagrams: 06/09/17 16:04 06/09/17 16:04 Lab Results 06/09/17 06/09/17 06/09/17 Range/Units 16:04 16:04 16:04 WBC 11.8 H (3.8-10.6) k/uL RBC 5.28 (4.30-5.90) m/uL Hgb 16.3 (13.0-17.5) gm/dL Hct 47.0 (39.0-53.0) % MCV 89.0 (80.0-100.0) fL MCH 30.8 (25.0-35.0) pg MCHC 34.6 (31.0-37.0) g/dL RDW 14.3 (11.5-15.5) % Plt Count 614 H (150-450) k/uL Neutrophils % 71 % Lymphocytes % 20 % Monocytes % 6 % Eosinophils % 1 % Basophils % 0 % Neutrophils # 8.4 H (1.3-7.7) k/uL Lymphocytes # 2.3 (1.0-4.8) k/uL Monocytes # 0.8 (0-1.0) k/uL Eosinophils # 0.1 (0-0.7) k/uL Basophils # 0.1 (0-0.2) k/uL Sodium 137 (137-145) mmol/L Potassium 4.2 (3.5-5.1) mmol/L Chloride 98 (98-107) mmol/L Carbon Dioxide 29 (22-30) mmol/L Anion Gap 10 mmol/L BUN 21 H (9-20) mg/dL Creatinine 0.90 (0.66-1.25) mg/dL Est GFR (MDRD) Af Amer >60 (>60 ml/min/1.73 sqM) Est GFR (MDRD) Non-Af >60 (>60 ml/min/1.73 sqM) Glucose 192 H (74-99) mg/dL Calcium 9.6 (8.4-10.2) mg/dL Total Bilirubin 1.4 H (0.2-1.3) mg/dL AST 33 (17-59) U/L ALT 38 (21-72) U/L Alkaline Phosphatase 126 (38-126) U/L Troponin I <0.012 (0.000-0.034) ng/mL Total Protein 6.7 (6.3-8.2) g/dL Albumin 3.6 (3.5-5.0) g/dL Amylase 31 (30-110) U/L Lipase 36 (23-300) U/L Urine Color Urine Appearance (Clear) Urine pH (5.0-8.0) Ur Specific [place] (1.001-1.035) Urine Protein (Negative) Urine Glucose (UA) (Negative) Urine Ketones (Negative) Urine Blood (Negative) Urine Nitrite (Negative) Urine Bilirubin (Negative) Urine Urobilinogen (<2.0) mg/dL Ur Leukocyte Esterase (Negative) 06/09/17 Range/Units 16:04 WBC (3.8-10.6) k/uL RBC (4.30-5.90) m/uL Hgb (13.0-17.5) gm/dL Hct (39.0-53.0) % MCV (80.0-100.0) fL MCH (25.0-35.0) pg MCHC (31.0-37.0) g/dL RDW (11.5-15.5) % Plt Count (150-450) k/uL Neutrophils % % Lymphocytes % % Monocytes % % Eosinophils % % Basophils % % Neutrophils # (1.3-7.7) k/uL Lymphocytes # (1.0-4.8) k/uL Monocytes # (0-1.0) k/uL Eosinophils # (0-0.7) k/uL Basophils # (0-0.2) k/uL Sodium (137-145) mmol/L Potassium (3.5-5.1) mmol/L Chloride (98-107) mmol/L Carbon Dioxide (22-30) mmol/L Anion Gap mmol/L BUN (9-20) mg/dL Creatinine (0.66-1.25) mg/dL Est GFR (MDRD) Af Amer (>60 ml/min/1.73 sqM) Est GFR (MDRD) Non-Af (>60 ml/min/1.73 sqM) Glucose (74-99) mg/dL Calcium (8.4-10.2) mg/dL Total Bilirubin (0.2-1.3) mg/dL AST (17-59) U/L ALT (21-72) U/L Alkaline Phosphatase (38-126) U/L Troponin I (0.000-0.034) ng/mL Total Protein (6.3-8.2) g/dL Albumin (3.5-5.0) g/dL Amylase (30-110) U/L Lipase (23-300) U/L Urine Color Yellow Urine Appearance Clear (Clear) Urine pH 8.0 (5.0-8.0) Ur Specific [place] 1.013 (1.001-1.035) Urine Protein Trace H (Negative) Urine Glucose (UA) 1+ H (Negative) Urine Ketones Negative (Negative) Urine Blood Negative (Negative) Urine Nitrite Negative (Negative) Urine Bilirubin Negative (Negative) Urine Urobilinogen <2.0 (<2.0) mg/dL Ur Leukocyte Esterase Negative (Negative) 06/09/17 17:46 12 lead ekg shows normal sinus rhythm. Disposition Clinical Impression: Constipation Disposition: HOME SELF-CARE Condition: Good Instructions: Constipation (ED) Referrals: Te Tyler MD [Primary Care Provider] - 1-2 days
[2017-06-09 18:47] VITALS: BP 148/68; PULSE 71; TEMP 98
--- NOTE | 2017-06-13 01:38 | CDI ---
Dear Artem Mcnair MD: Please do addendum History of Present Illness. Thank you, Vitaliy Jin, Failure Analysis Engineer. If you have any questions, please contact [employer] at [phone]. [facility]
== END 2017-06-09 18:46 | disposition home or self-care (01) ==
LOC: EC 14:51
DX: K59.00 Constipation, unspecified (principal); E78.5 Hyperlipidemia, unspecified; I10 Essential (primary) hypertension; E11.9 Type 2 diabetes mellitus without complications; Z79.01 Long term (current) use of anticoagulants; Z79.4 Long term (current) use of insulin; Z79.899 Other long term (current) drug therapy; Z85.89 Personal history of malignant neoplasm of other organs and systems; Z90.81 Acquired absence of spleen
CPT/HCPCS: 36415; 93005; 80053; 82150; 83690; 84484; 85025; 81003; 74177; 99284; 96360; Q9967

== ENCOUNTER → 2017-11-30 | Outpatient (CLI) | payer MEDICARE ==
[2017-11-30 08:05] LABS: HCT 49.7 % (39.0-53.0); HGB 17.2 gm/dL (13.0-17.5); MCH 29.6 pg (25.0-35.0); MCHC 34.5 g/dL (31.0-37.0); MCV 85.7 fL (80.0-100.0); Mean Platelet Volume 7.3; Platelet Count 361 k/uL (150-450); RDW 13.6 % (11.5-15.5); WBC 11.6 k/uL (3.8-10.6)
[2017-11-30 11:02] LABS: Erythrocyte Sedimentation Rate 2 mm/hr (0-15)
[2017-11-30 11:26] LABS: Anion Gap 12 mmol/L; Blood Urea Nitrogen 26 mg/dL (9-20); C Reactive Protein 6.7 mg/L (<10.0); Calcium 9.4 mg/dL (8.4-10.2); Carbon Dioxide 28 mmol/L (22-30); Chloride 101 mmol/L (98-107); Glucose 105 mg/dL (74-99); Potassium 3.8 mmol/L (3.5-5.1); Sodium 141 mmol/L (137-145)
[2017-11-30 12:48] LABS: Hemoglobin A1C 8.1 % (4.0-6.0)
== END | disposition home or self-care (01) ==
LOC: LABWHC1 07:00
PROVIDERS: ATTEND Orthopaedic Surgery
DX: E11.65 Type 2 diabetes mellitus with hyperglycemia (principal); M25.561 Pain in right knee; Z47.1 Aftercare following joint replacement surgery; Z96.651 Presence of right artificial knee joint; M67.861 Other specified disorders of synovium, right knee; M65.88 Other synovitis and tenosynovitis, other site; M23.8X1 Other internal derangements of right knee
CPT/HCPCS: 36415; 80048; 82043; 82570; 83036; 83520; 85027; 85652; 86140

== ENCOUNTER → 2017-12-06 | Outpatient (CLI) | payer MEDICARE ==
--- NOTE | 2017-12-07 14:15 | NM ---
EXAMINATION TYPE: NM WBC limited DATE OF EXAM: 12/07/2017 COMPARISON: NONE HISTORY: Knee pain, knee prosthesis TECHNIQUE: Following administration of 25.853 mCi Tc99m Ceretec. Images obtained postradiotracer ho ur(s) and 3 hour(s) post injection. FINDINGS: Blood flow: Blood flow has symmetrical blood flow. No focal radiotracer accumulation is evident. Blood pool: There is some mild increased blood pool within the mid right foot compared to the left. O therwise, blood pool images appear symmetrical. Static images: There is increased radiotracer accumulation at the first metatarsophalangeal joint spa oliver and distal interphalangeal joint space of the first digit bilaterally. Additionally, there is inc reased radiotracer accumulation along the proximal fifth metatarsal regions bilaterally and at the an kles. IMPRESSION: No suspicious changes to suggest osteomyelitis by bone scan. 2. There are degenerative changes likely present at the first metatarsal-phalangeal joint spaces and distal interphalangeal joint space of the great toes bilaterally.
== END | disposition home or self-care (01) ==
LOC: RADNMMAIN 06:51
PROVIDERS: ATTEND Orthopaedic Surgery
DX: M25.561 Pain in right knee (principal); E11.9 Type 2 diabetes mellitus without complications; Z47.1 Aftercare following joint replacement surgery; Z96.651 Presence of right artificial knee joint
CPT/HCPCS: 78805; A9569

== ENCOUNTER → 2020-08-14 | Outpatient (CLI) | payer MEDICARE ==
[2020-08-14 14:52] LABS: Calcium 9.6 mg/dL (8.7-10.3); Magnesium 1.7 mg/dL (1.5-2.4)
== END | disposition home or self-care (01) ==
LOC: LABWHC1 09:31
PROVIDERS: ATTEND Podiatrist Foot & Ankle Surgery
DX: E21.3 Hyperparathyroidism, unspecified (principal); R25.2 Cramp and spasm
CPT/HCPCS: 36415; 82310; 83735

== ENCOUNTER 2021-06-09 07:16 | Day surgery (SDC) | payer MEDICARE ==
[2021-06-04 10:55] VITALS: BMI 33.9
[~2021-06-09 07:16] MED LIST changes: -ACETAMINOPHEN TAB 500 MG TAB PO ONE; +LACTATED RINGERS 1,000 ML IV SCH; +LIDOCAINE 1% (10MG/ML) FOR IV START INTRADERMA PRN; -MELOXICAM 7.5 MG TAB PO ONE; -ceFAZolin 2 GM in SODIUM CHLORIDE 0.9% 100 ML IVPB ONE
[2021-06-09 07:49] LABS: Glucose,Whole Blood 172 mg/dL (75-99)
[2021-06-09 07:53] VITALS: TEMP 97.8
[2021-06-09] MEDS ORDERED: PROPOFOL 10 MG/ML 20 ML VIAL IV ONE (08:07)
--- NOTE | 2021-06-09 08:10 | P.GSHP ---
History of Present Illness H&P Date: 06/09/21 Chief Complaint: Colon cancer screening Patient is here today for colonoscopy. Last colonoscopy over 10 years ago. Patient with history of polyps. No bowel complaints. No family history of colon cancer. Past Medical History Past Medical History: Cancer, Diabetes Mellitus, GERD/Reflux, Hyperlipidemia, Hypertension, Osteoarthritis (OA) Additional Past Medical History / Comment(s): SPLEEN CA-2006, hx migraines, hx ulcer, History of Any Multi-Drug Resistant Organisms: None Reported Past Surgical History: Joint Replacement, Orthopedic Surgery Additional Past Surgical History / Comment(s): TOTAL Sejal KNEE. SEJAL SHOULDER rotator cuff surgery. SEJAL carpal tunnel. RT GREAT TOE. SPLENECTOMY. Past Anesthesia/Blood Transfusion Reactions: Postoperative Nausea & Vomiting (PONV) Smoking Status: Never smoker - Past Family History Brother(s) Family Medical History: Cancer Additional Family Medical History / Comment(s): father with questionable history of [place]'s disease, brother had leukiema Mother Family Medical History: Deep Vein Thrombosis (DVT) Medications and Allergies Home Medications Medication Instructions Recorded Confirmed Type Atenolol/Chlorthalidone 1 tab PO W/SUPPER 05/24/17 06/04/21 History [Atenolol-Chlorthalidone 50-25] Insulin Aspart Protam & Aspart 55 unit SQ DAILY@0800,1700 05/24/17 06/04/21 History [NovoLOG MIX 70-30 Flexpen] Potassium Chloride [K-Tab ER] 10 meq PO BID 05/24/17 06/04/21 History amLODIPine [Norvasc] 5 mg PO DAILY 05/24/17 06/04/21 History Aspirin 325 mg PO DAILY 06/04/21 06/04/21 History Atorvastatin [Lipitor] 20 mg PO DAILY 06/04/21 06/04/21 History Hydroxychloroquine Sulfate 200 mg PO BID 06/04/21 06/04/21 History Ibuprofen 800 mg PO TID PRN 06/04/21 06/04/21 History Tamsulosin [Flomax] 0.4 mg PO DAILY 06/04/21 06/04/21 History Allergies Allergy/AdvReac Type Severity Reaction Status Date / Time No Known Allergies Allergy Verified 06/04/21 10:42 Surgical - Exam Vital Signs Temp Pulse Resp BP Pulse Ox 97.8 F 66 16 185/95 95 06/09/21 07:35 06/09/21 07:35 06/09/21 07:35 06/09/21 07:35 06/09/21 07:35 Physical exam: General: Well-developed, well-nourished HEENT: Normocephalic, sclerae nonicteric Abdomen: Nontender, nondistended Extremities: No edema Neuro: Alert and oriented Results - Labs Abnormal Lab Results - Last 24 Hours (Table) 06/09/21 Range/Units 07:48 POC Glucose (mg/dL) 172 H (75-99) mg/dL Assessment and Plan (1) Colon cancer screening Narrative/Plan: Will proceed with colonoscopy Current Visit: Yes Status: Acute Code(s): Z12.11 - ENCOUNTER FOR SCREENING FOR MALIGNANT NEOPLASM OF COLON SNOMED Code(s): 115904624
--- NOTE | 2021-06-09 08:21 | P.PCN ---
Date of Procedure: 06/09/21 Procedure(s) Performed: PREOPERATIVE DIAGNOSIS: Colon cancer screening POSTOPERATIVE DIAGNOSIS: Normal exam PROCEDURE: Colonoscopy ANESTHESIA: MAC SURGEON: Eben Osman M.D. SPECIMENS: None ENDOSCOPIC PROCEDURE: The patient was placed on the endoscopy table in the left decubitus position. The Olympus colonoscope was inserted into the anus and passed under direct visualization to the base of the cecum. The appendiceal orifice was visualized. From that point the scope was slowly withdrawn inspecti ng all surfaces carefully. There were no neoplastic inflammatory or polypoid lesions throughout the cecum, ascending, transverse, descending, sigmoid and rectum. There was no visible diverticulosis noted. Digital rectal examination was normal. The patient was taken to the recovery room in stable condition per anesthesia guidelines. RECOMMENDATIONS: Resume diet. Follow-up colonoscopy 10 years.
[2021-06-09 08:52] VITALS: BP 135/76; PULSE 63; RESP 18
== END 2021-06-09 09:20 | disposition home or self-care (01) ==
LOC: ORWHC2ENDO 07:16
PROVIDERS: ATTEND Surgery
DX: Z12.11 Encounter for screening for malignant neoplasm of colon (principal); E11.9 Type 2 diabetes mellitus without complications; K21.9 Gastro-esophageal reflux disease without esophagitis; E78.5 Hyperlipidemia, unspecified; I10 Essential (primary) hypertension; M19.90 Unspecified osteoarthritis, unspecified site; N40.0 Benign prostatic hyperplasia without lower urinary tract symptoms; F41.9 Anxiety disorder, unspecified; Z85.09 Personal history of malignant neoplasm of other digestive organs; Z96.653 Presence of artificial knee joint, bilateral; Z96.612 Presence of left artificial shoulder joint; Z96.611 Presence of right artificial shoulder joint; Z90.81 Acquired absence of spleen; Z79.4 Long term (current) use of insulin; Z79.82 Long term (current) use of aspirin; Z79.899 Other long term (current) drug therapy
CPT/HCPCS: J2704; G0121

== ENCOUNTER → 2022-04-20 | Outpatient (CLI) | payer MEDICARE ==
[2022-04-20 11:08] LABS: Partial Thromboplastin Time 24.4 sec (22.0-30.0)
[2022-04-20 14:14] LABS: HCT 50.3 % (39.6-50.0); HGB 16.5 g/dL (13.0-17.0); MCHC 32.8 g/dL (32.0-37.0); MCV 88.4 fL (80.0-97.0); Mean Platelet Volume 10.4 fL (9.5-12.2); NRBC Per 100 WBC 0 /100 WBCS (0.0-0.0); Platelet Count 519 X 10*3/uL (140-440); RBC 5.69 X 10*6/uL (4.40-5.60); RDW 15.5 % (11.5-14.5); WBC 9.55 X 10*3/uL (4.50-10.00)
[2022-04-20 14:35] LABS: African American GFR (CKD) 85.6 (60.0-200.0); Albumin 3.5 g/dL (3.8-4.9); Albumin/Globulin Ratio 1.21 (1.60-3.17); Anion Gap 12.1 mmol/L (10.00-18.00); BUN/Creat Ratio 19.5 Ratio (12.00-20.00); Blood Urea Nitrogen 19.5 mg/dL (9.0-27.0); C Reactive Protein 1.2 mg/dL (0.00-0.80); Calcium 9.5 mg/dL (8.7-10.3); Carbon Dioxide 24.9 mmol/L (20.0-27.5); Globulin 2.9 g/dL (1.6-3.3); Non-African American GFR(CKD) 73.8 (60.0-200.0); Potassium 3.8 mmol/L (3.5-5.5); Total Bilirubin 0.6 mg/dL (0.30-1.20); Total Protein 6.4 g/dL (6.2-8.2)
[2022-04-20 14:39] LABS: Erythrocyte Sedimentation Rate 26 mm/Hr (0-20)
== END | disposition home or self-care (01) ==
LOC: LABWHC1 09:10
PROVIDERS: ATTEND Orthopaedic Surgery
DX: Z01.812 Encounter for preprocedural laboratory examination (principal); M12.9 Arthropathy, unspecified; D64.9 Anemia, unspecified; T84.022A Instability of internal right knee prosthesis, initial encounter; Y82.9 Unspecified medical devices associated with adverse incidents
CPT/HCPCS: 36415; 80053; 83036; 85027; 85610; 85652; 85730; 86140; 86850; 86900; 86901; 87070

== ENCOUNTER → 2022-06-04 | Outpatient (CLI) | payer MEDICARE ==
[2022-06-04 16:58] LABS: African American GFR (CKD) >90 (>60 ml/min/1.73 sqM); Blood Urea Nitrogen 22 mg/dL (9-20); Non-African American GFR(CKD) 80 (>60 ml/min/1.73 sqM)
--- NOTE | 2022-06-05 08:52 | CT ---
EXAMINATION TYPE: CT chest w con CT DLP: 761.4 mGycm, Automated exposure control for dose reduction was used. DATE OF EXAM: 06/04/2022 5:23 PM COMPARISON: CT chest and abdomen 04/24/2010, chest radiograph 12/20/2019, CT abdomen pelvis 06/09/2017. CLINICAL INDICATION:Male, 76 years old with history of C22.0 LIVER CELL CARCINOMA; PHH, liver CA TECHNIQUE: Multiple axial images were obtained through the chest following the administration of 100 cc of Isovue 300. Coronal and sagittal reformats reviewed. FINDINGS: LUNGS/ PLEURA: No pneumothorax, pleural effusion, or focal consolidation. Stable 5 mm nodule along th e right major fissure dating back to 2010 considered benign (series 4, age 33). No new or enlarging p ulmonary nodules. AIRWAY: Patent and unremarkable.. HEART: Size within normal limits. No pericardial effusion. Coronary artery calcifications. MEDIASTINUM: Mildly enlarged 1.0 cm short axis left hilar lymph node (series 3, image 27) is unchange d from examination 2009. VASCULATURE: No aortic aneurysm. MUSCULOSKELETAL: Moderate disc degeneration changes are present throughout the thoracolumbar spine. N o aggressive osseous lesions. No acute osseous abnormality. SOFT TISSUES/LYMPH NODES: Mildly enlarged right axillary lymph node measuring up to 1.3 cm (series 3, image 13). Additional subcentimeter bilateral axillary lymph nodes identified. Enlarged 1.3 cm soft tissue nodule just posterior to the right nipple (series 3, image 30). LOWER NECK: No significant findings. UPPER ABDOMEN: Large hyperattenuating heterogenous lesion within the right hepatic lobe involving at least segment 6 and 7 and measures up to 10.7 cm. There is central curvilinear hypoattenuation. Odalis lithiasis. Nonspecific bilateral perinephric fat stranding. Stable right renal cyst measuring up to 4 .6 cm. Spleen is surgically absent. Stable right adrenal 3.2 cm fat-containing lesion consistent with a myolipoma. Small fat filled ventral wall epigastric fat-containing hernia. IMPRESSION: 1. Nonspecific mildly enlarged right axial lymph node and right chest wall soft tissue nodule. Consid er further evaluation with ultrasound. 2. Large right hepatic lobe mass measuring up to 10.7 cm. This likely represents reported liver cell carcinoma. 3. No new concerning pulmonary nodules. 4. Cholelithiasis. 5. Stable right adrenal myelolipoma.
== END | disposition home or self-care (01) ==
LOC: RADCTMAIN 16:14
PROVIDERS: ATTEND Internal Medicine Hematology & Oncology
DX: C22.0 Liver cell carcinoma (principal); D17.9 Benign lipomatous neoplasm, unspecified; K80.20 Calculus of gallbladder without cholecystitis without obstruction; R59.0 Localized enlarged lymph nodes
CPT/HCPCS: 82565; 84520; 71260; 36415; Q9967

== ENCOUNTER → 2022-07-23 | Day surgery (SDC) | payer MEDICARE ==
--- NOTE | 2022-07-28 10:36 | USB ---
Prior Study Comparison: 07/14/2022 Bilateral MG 3D diag mammo w/cad [facility], [facility]. Pathology Description: Location: 1 o'clock. Needle Type: Bard 14g x 10cm Cores: 3 The procedure of ultrasound guided core biopsy was explained to the patient. Benefits, alternatives, and risks were discussed. An informed consent was then obtained. The patient was placed in supine positioning for imaging and for the procedure. The overlying skin was prepped and draped in usual sterile fashion. Lidocaine buffered with bicarbonate was used as anesthetic into the skin and subcutaneous tissue up to area of concern in the right breast. A romario was made with surgical scalpel. Under ultrasound guidance, a 18-gauge biopsy gun device was used to obtain 3 core samples. Under ultrasound guidance, a 18-gauge biopsy gun device was used to obtain a single core sample. There was bleeding at this time and due to its mobility, deep location, close proximity to vessels in the chest wall no additional attempts were made. Under ultrasound guidance, a 12-gauge vacuum assisted biopsy gun device was used to obtain 7 core samples. Following this, a biopsy clip was left axillary lymph node. The patient tolerated the procedure well without any immediate complication. The patient was kept in the radiology department for short stay after the procedure and then discharged home in stable condition. Impression: 1. Successful, uncomplicated ultrasound guided core biopsy of area of concern in the retroareolar right breast as well as single attempt at a deep axillary lymph node and multiple times a day more superficial right axillary lymph node, full pathology results to follow. 2. Successful clip placement within the right axillary lymph node. Pathology Results: Result: Malignant, Invasive ductal carcinoma. A. RIGHT BREAST, 1:00, ULTRASOUND GUIDED NEEDLE CORE BIOPSY: Invasive moderately differentiated ductal carcinoma (Grade 2). See Surgical Pathology Cancer Case Summary and Comment. B. RIGHT AXILLA: Benign lymph node tissue. C. RIGHT AXILLA SECOND SITE, CORE BIOPSY: Invasive moderately differentiated ductal carcinoma (Grade 2) with focal associated lymphoid tissue. See comment. Pathology Description: Location: axilla. Marker Left Behind. Needle Type: Mammotome Cores: 7 Skin Nicks: 1 Pathology Description: Location: axilla. Needle Type: Bard 14g x 10cm Cores: 1 Overall Assessment: Malignant Management: Surgical Consultation of the right breast. Electronically signed and approved by: Sandeep De Oliveira DO
== END ==
LOC: RADUSWWP 10:17
PROVIDERS: ATTEND Surgery
DX: C50.221 Malignant neoplasm of upper-inner quadrant of right male breast (principal); N63.10 Unspecified lump in the right breast, unspecified quadrant
CPT/HCPCS: 88305; 88342; 88341; 19083; 19084 ×2; A4648

== ENCOUNTER → 2022-07-30 | Outpatient (CLI) | payer MEDICARE ==
[2022-07-30 09:16] LABS: Partial Thromboplastin Time 25.1 sec (22.0-30.0); Prothrombin Time 10.6 sec (9.0-12.0)
[2022-07-30 10:43] LABS: Basophils # (A) 0.08 X 10*3/uL (0.00-0.10); Basophils % (A) 0.7 %; Eosinophils # (A) 0.55 X 10*3/uL (0.04-0.35); Eosinophils % (A) 4.6 %; HCT 46.4 % (39.6-50.0); HGB 15.5 g/dL (13.0-17.0); Immature Grans, Automated 0.2 %; Lymphocytes # (A) 4.49 X 10*3/uL (0.90-5.00); MCH 28.9 pg (27.0-32.0); MCHC 33.4 g/dL (32.0-37.0); MCV 86.4 fL (80.0-97.0); Mean Platelet Volume 10.9 fL (9.5-12.2); Monocytes # (A) 0.92 X 10*3/uL (0.20-1.00); Monocytes % (A) 7.8 %; NRBC Per 100 WBC 0 /100 WBCS (0.0-0.0); Neutrophils # (A) 5.77 X 10*3/uL (1.80-7.70); Neutrophils % (A) 48.7 %; Platelet Count 593 X 10*3/uL (140-440); RBC 5.37 X 10*6/uL (4.40-5.60); RDW 14.3 % (11.5-14.5); WBC 11.83 X 10*3/uL (4.50-10.00)
[2022-07-30 10:48] LABS: African American GFR (CKD) 76.2 (60.0-200.0); Anion Gap 9.9 mmol/L (10.00-18.00); BUN/Creat Ratio 24.64 Ratio (12.00-20.00); Blood Urea Nitrogen 27.1 mg/dL (9.0-27.0); Calcium 9.8 mg/dL (8.7-10.3); Carbon Dioxide 24.1 mmol/L (20.0-27.5); Non-African American GFR(CKD) 65.8 (60.0-200.0)
[2022-07-30 13:45] LABS: Albumin 3.5 g/dL (3.8-4.9); Albumin/Globulin Ratio 1.14 (1.60-3.17); Bilirubin, Conjugated 0.25 mg/dL (0.20-0.40); Bilirubin,Unconjugated 0.38 mg/dL (0.20-1.00); Total Bilirubin 0.6 mg/dL (0.30-1.20); Total Protein 6.5 g/dL (6.2-8.2)
== END | disposition home or self-care (01) ==
LOC: LABWHC1 07:19
PROVIDERS: ATTEND Radiology Vascular & Interventional Radiology
DX: R16.0 Hepatomegaly, not elsewhere classified (principal)
CPT/HCPCS: 36415; 80048; 80076; 85025; 85610; 85730

== ENCOUNTER 2022-08-30 06:41 | Inpatient (IN) | payer MEDICARE ==
--- NOTE | 2022-08-24 14:14 | P.GSHP ---
History of Present Illness H&P Date: 08/24/22 Chief Complaint: Right breast cancer 76-year-old male with personal history of T-cell lymphoma. He underwent previous splenectomy by myself years ago. Patient recently diagnosed with a large liver mass and during that workup was found to have a right-sided breast mass. Patient had a mammogram and ultrasound showing a 1.5 cm right periareolar breast mass along with 2 suspicious axillary lymph nodes. One of the 2 lymph nodes was positive for metastatic cancer. 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 Recently had Oncotype DX showing a high score of 39. He had genetic testing showing that he was BRCA2 positive. Past Medical History Past Medical History: Cancer, Diabetes Mellitus, GERD/Reflux, Hyperlipidemia, Hypertension, Osteoarthritis (OA) Additional Past Medical History / Comment(s): SPLEEN CA-2005.. Hx of pancreatitis 2021 History of Any Multi-Drug Resistant Organisms: None Reported Past Surgical History: Joint Replacement, Orthopedic Surgery Additional Past Surgical History / Comment(s): TOTAL Sejal KNEE. SEJAL SHOULDER rotator cuff surgery. SEJAL carpal tunnel. RT GREAT TOE fx with repair. SPLENECTOMY.2006 Past Anesthesia/Blood Transfusion Reactions: Postoperative Nausea & Vomiting (PONV) Smoking Status: Never smoker - Past Family History Brother(s) Family Medical History: Cancer Additional Family Medical History / Comment(s): father with questionable history of [place]'s disease, brother had leukiema Mother Family Medical History: Deep Vein Thrombosis (DVT) Medications and Allergies Home Medications Medication Instructions Recorded Confirmed Type Insulin Aspart Prot/Insuln Asp 35 unit SQ DAILY@0800,1700 05/24/17 08/23/22 History [NovoLOG MIX 70-30 Flexpen] Potassium Chloride [K-Tab ER] 10 meq PO BID 05/24/17 08/23/22 History amLODIPine [Norvasc] 5 mg PO DAILY 05/24/17 08/23/22 History Atorvastatin [Lipitor] 20 mg PO DAILY 06/04/21 08/23/22 History Hydroxychloroquine Sulfate 200 mg PO BID 06/04/21 08/23/22 History Ibuprofen 800 mg PO TID PRN 06/04/21 08/23/22 History Metoprolol Succinate (ER) [Toprol 25 mg PO DAILY 10/12/22 11/21/22 History Xl] lisinopriL [Zestril] 20 mg PO DAILY 07/14/22 08/23/22 History Allergies Allergy/AdvReac Type Severity Reaction Status Date / Time No Known Allergies Allergy Verified 08/23/22 14:35 Surgical - Exam Physical exam: General: Well-developed, well-nourished HEENT: Normocephalic, sclerae nonicteric Abdomen: Nontender, nondistended Extremities: No edema Neuro: Alert and oriented Right breast fullness, recent scars noted Assessment and Plan (1) Cancer of right male breast Narrative/Plan: 76-year-old male with right-sided breast cancer and BRCA2 mutation. Patient has been seen by oncology as recently as yesterday. He had I discussed the recent genetic testing and detail with his as well by phone earlier today. We discussed options of contralateral mastectomy given his genetic findings. Patient would like to avoid any unnecessary surgery and would like to avoid left mastectomy at this time. Increased risks of future malignancy reviewed. Patient understands those risks. We'll proceed with right simple mastectomy with sentinel lymph node biopsy/injection and wire localization excision of metastatic right axillary lymph node. Risks of bleeding, infection, scarring, seroma, nerve injury, recurrence, numbness, lymphedema reviewed. He understands and wishes to proceed. Status: Acute Code(s): C50.921 - MALIGNANT NEOPLASM OF UNSPECIFIED SITE OF RIGHT MALE BREAST SNOMED Code(s): 611302771
--- NOTE | 2022-08-24 14:14 | P.NAPBC ---
NAPBC Queries - NAPBC Queries Was patient's case review presented at [facility] tumor board? If no, comment.: Yes Was patient's pathology reviewed at [facility]? If no, comment.: Yes Was breast conservation surgery offered? If no, comment.: Yes Was sentinel node biopsy offered? If no, comment.: Yes Was diagnosis confirmed by percutaneous core biopsy? If no, comment.: Yes Is patient mastectomy patient?: Yes Was a preop referral to reconstructive surgeon offered?: Yes Clinical Stage: 1b
[~2022-08-30 06:41] MED LIST changes: +ACETAMINOPHEN TAB 500 MG TAB PO PRN; +HEPARIN SODIUM,PORCINE/PF 5,000 UNIT/0.5 ML SYRINGE SQ PRN; -LACTATED RINGERS 1,000 ML IV SCH; -LIDOCAINE 1% (10MG/ML) FOR IV START INTRADERMA PRN; +Pre Op ABX Message 1 EACH MISC MISCELLANE ONE
[2022-08-30] MEDS ORDERED: ONDANSETRON 4 MG/2 ML VIAL IVP ONE (07:02)
[2022-08-30] MEDS ORDERED: ONDANSETRON 4 MG/2 ML VIAL IVP PRN (07:02)
[2022-08-30] MEDS ORDERED: LIDOCAINE 1% (10MG/ML) FOR IV START INTRADERMA PRN (07:02)
[2022-08-30] MEDS ORDERED: DEXAMETHASONE SOD PHOSPHATE 4 MG/ML 1 ML VIAL IV ONE (07:02)
[2022-08-30] MEDS ORDERED: HYDROmorphone 0.5 MG/0.5 ML SYRINGE IVP PRN ×2 (07:02→15:49)
[2022-08-30] MEDS: LACTATED RINGERS 1,000 ML IV SCH (07:35)
[2022-08-30 07:37] LABS: Glucose,Whole Blood 142 mg/dL (70-110)
[2022-08-30] MEDS ORDERED: ALPRAZolam 0.25 MG TAB ONE (07:39)
--- NOTE | 2022-08-30 13:24 | P.HPADDEND ---
H&P Addendum H&P Addendum Date: 08/30/22 Patient presents today for planned simple mastectomy with sentinel lymph node biopsy and wire localization of preoperatively biopsied metastatic right axillary lymph node. The patient had extensive imaging while in the diagnostic center including ultrasound, mammogram, plain films, and subsequent computed tomography scan of the axilla. Unfortunately we were unable to identify any clip in the axilla to identify the preoperatively biopsied metastatic node. Additionally there were 3 or more abnormal appearing lymph nodes in the axilla that clinically appeared concerning. Options were reviewed with the patient and his family in detail. These options wereto include sentinel lymph node biopsy without localization versus axillary node dissection along with our ostectomy. Given the fact that there are 3 or more lymph nodes present that appear suspicious we have decided to proceed with axillary node dissection at this time. Increased risk of edema reviewed with the patient and his family. They're agreeable. We'll proceed with right modified radical mastectomy at this time.
[2022-08-30] MEDS ORDERED: SODIUM CHLORIDE 0.9% 50 ML with ceFAZolin 2,000 MG IV ONE ×2 (13:28)
[2022-08-30] MEDS ORDERED: LACTATED RINGERS 1,000 ML IV ONE (14:34)
[2022-08-30] MEDS ORDERED: NALOXONE 0.4 MG/ML 1 ML VIAL IV PRN (15:49)
[2022-08-30] MEDS ORDERED: HYDROmorphone 1 MG/ML 1 ML SYRINGE IVP PRN (15:49)
[2022-08-30] MEDS ORDERED: HYDROcodone/APAP 5-325MG 1 EACH TAB PO PRN (15:49)
[2022-08-30] MEDS ORDERED: traMADol 50 MG TAB PO PRN (15:49)
--- NOTE | 2022-08-30 16:00 | P.OP ---
Date of Procedure: 08/30/22 Procedure(s) Performed: PREOPERATIVE DIAGNOSIS: Right breast cancer POSTOPERATIVE DIAGNOSIS: Same PROCEDURE: Right breast modified radical mastectomy SURGEON: Dawson EBL: 25 mL ANESTHESIA: General COMPLICATIONS: None OPERATIVE PROCEDURE: Patient was placed on the operating room table in the supine position. The right chest wall was prepped and draped sterilely. Using the skin marker the proposed incision sites were drawn out on the chest wall. The superior incision was first created. The incision was elliptical in nature encompassing the nipple areolar complex. Flaps were raised superiorly until the chest wall was reached. Similar incision inferiorly was then made as well. Once the chest wall was reached the breast was dissected away from the underlying pectoralis fascia. There was no evidence of malignancy in the retroareolar location at the level of the fascia. The axilla was then add ressed. The deltopectoral fascia was opened using electrocautery and blunt dissection. The patient had numerous lymph nodes in the axilla that were clinically suspicious with significant induration. It was already decided that we would proceed with axillary mckay dissection preoperatively. The axillary contents were swept inferiorly from the level of the axillary vein. Dissection posteriorly took place down to the level of the thoracodorsal neurovascular bundle. Medial and lateral margins were the chest wall medially and the latissimus laterally. Again multiple lymph nodes were palpated within the specimen. Vessels and lymphatics were divided using a combination of 3-0 silk ties, Ligaclip, and LigaSure device. After the specimen was removed I felt to more suspicious lymph nodes just at the level of the axillary vein medially. These were removed in a similar fashion. The area was then irrigated. No bleeding was seen. A drain was placed exiting from the anterior axillary line inferiorly. This was sutured in place using a 3-0 silk stitch. The subcutaneous tissues were then closed using 3-0 Vicryl sutures and the skin was closed using a running 4-0 Monocryl stitch. Dermabond table dressing was used along the entire length of the incision. Sterile dressings were then applied. DISPOSITION: Stable to recovery room
[2022-08-30 16:11] LABS: Glucose,Whole Blood 127 mg/dL (70-110)
[2022-08-30] MEDS ORDERED: hydrALAZINE HCL 20 MG/ML 1 ML VIAL IVP ONE (16:42)
[2022-08-30] MEDS: HEPARIN SODIUM,PORCINE/PF 5,000 UNIT/0.5 ML SYRINGE SQ SCH (17:24)
[2022-08-30 20:36] LABS: Glucose,Whole Blood 291 mg/dL (70-110)
[2022-08-30] MEDS: DOCUSATE 100 MG CAP PO SCH (22:00)
[2022-08-30] MEDS ORDERED: lisinopriL 5 MG TAB PO STA (22:09)
[2022-08-30] MEDS ORDERED: DEXTROSE 50% SYRINGE 50 ML IVP PRN ×2 (22:10)
[2022-08-30] MEDS: INSULIN ASPART (NovoLOG) 100 UNIT/ML VIAL SQ SCH (22:32)
[2022-08-30] MEDS: amLODIPine 5 MG TAB PO SCH (22:32)
[2022-08-31] MEDS: HEPARIN SODIUM,PORCINE/PF 5,000 UNIT/0.5 ML SYRINGE SQ SCH ×4 (00:13→23:04)
[2022-08-31 06:34] LABS: Glucose,Whole Blood 330 mg/dL (70-110)
[2022-08-31] MEDS: INSULIN ASPART (NovoLOG) 100 UNIT/ML VIAL SQ SCH ×4 (06:47→21:42)
[2022-08-31] MEDS: LACTATED RINGERS 1,000 ML IV SCH (06:47)
[2022-08-31] MEDS: INSULN ASP PRT/INSULIN ASPART 100 UNIT/ML 10 ML VIAL SQ SCH ×2 (06:48→18:22)
[2022-08-31] MEDS ORDERED: INSULIN ASPART (NovoLOG) 100 UNIT/ML VIAL SQ SCH (07:30)
--- NOTE | 2022-08-31 07:48 | MM ---
Reason for Exam: Known biopsy proven malignancy. Last screening mammogram was performed 1 month(s) ago. Patient History: Breast cancer, right, age 76. 07/23/2022, Malignant US biopsy breast VAD RT on the right side. 07/23/2022, US biopsy breast add'l VAD RT on the Right side. 07/23/2022, US breast needle core addl RT on the Right side. Prior Study Comparison: 07/14/2022 Bilateral MG 3D diag mammo w/cad RYLAND, [facility]. Tissue Density: Right: There are scattered fibroglandular densities. Findings: The procedure of needle localization with wire placement and than surgical excision was explained to the patient. Benefits, alternatives, and risks were discussed. An informed consent was then obtained. Case is reviewed prior to procedure. Patient is to have right breast mastectomy. Surgeon wishes to localize the butterfly clip which was attempted to be deployed after 7 core biopsies of a abnormal right axillary lymph node. Preprocedure ultrasound redemonstrates elongated lymph node in the axillary tail just under 2 cm in depth along with a more prominent deeper lymph node near the tip 4 cm in depth which has lost central fatty hilum and a smaller lymph node which has lost central fatty hilum at roughly 1.5 cm in depth in the axillary tail. No distinct biopsy clip clearly seen. Difficult on review of prior study 2 9 which lymph node was sampled once and which was sampled multiple times with clip deployment. Additional mammographic images were performed which shows several prominent and borderline suspicious lymph nodes as well as the elongated lymph node. No biopsy clip clearly seen. Case discussed with radiologist to perform the biopsy. It was uncertain which lymph node was sampled with positive results and clip placement. It is not well documented on last image after butterfly clip deployment which only shows biopsy track upon review. It was attempted to x-ray of right shoulder which did not definitely show biopsy clip but butterfly biopsy clip also not distinctly identified when second clip is taped to patient's axillary region. Only surgical change to right humeral head from rotator cuff surgery is identified. At this point case is extensively discussed with surgeon. It is possible clip which was never documented as successfully deployed on mammogram or ultrasound was displaced or extruded on original biopsy. Ordering surgeon requested CT to further evaluate. CT redemonstrates suspicious prominent right axillary lymph nodes without definitive biopsy clip though this may not show up well on CT similar to attempted radiograph. Primary right breast lesion or neoplasm near the nipple axial image 38 is redemonstrated. Aneurysm clips with heterogeneous areas in the right hepatic lobe are again seen. Intraluminal rim calcified gallstone redemonstrated. More prominent fat replaced atrophy of the pancreas is noted. A four-vessel aortic arch is redemonstrated which is normal variant. Coronary artery calcifications are redemonstrated. At this point on discussion with surgeon and is felt reasonable to perform mastectomy with right axillary lymph node dissection due to several suspicious lymph nodes and no definitive biopsy clip in the sampled lymph nodes. I do believe biopsy clip likely was extruded at time of sampling. Patient was agreeable to the above, nuclear medicine sentinel lymph node injection was not performed. No needle localization was performed because of uncertain age which lymph node was targeted with positive results as definitive biopsy clip also not identified The patient tolerated the attempted procedure well without any immediate complication. The patient was kept in the radiology department for short stay after the attempted procedure and then taken to surgery for surgery. The patient was kept in hospital for short stay after the procedure and then discharged home in stable condition. IMPRESSION: UnSuccessful, eventually canceled needle localization with wire placement and surgical excision of abnormal lymph node in the right breast, full pathology results to follow from mastectomy and lymph node dissection. Overall Assessment: Known biopsy proven malignancy, BI-RAD 6 Management: Surgical Consultation of the right breast. Electronically signed and approved by: Zuhair Valdivia M.D.
[2022-08-31] MEDS: ATORVASTATIN 20 MG TAB PO SCH (08:36)
[2022-08-31] MEDS: DOCUSATE 100 MG CAP PO SCH ×2 (08:36→21:42)
[2022-08-31] MEDS: lisinopriL 20 MG TAB PO SCH (08:36)
[2022-08-31] MEDS: PANTOPRAZOLE 40 MG/10 ML VIAL IV SCH (08:36)
[2022-08-31] MEDS: amLODIPine 5 MG TAB PO SCH (08:36)
[2022-08-31] MEDS: METOPROLOL SUCCINATE (ER) 25 MG TAB.ER.24H PO SCH (08:36)
[2022-08-31 10:29] LABS: Basophils # (A) 0.04 X 10*3/uL (0.00-0.10); Basophils % (A) 0.3 %; Eosinophils # (A) 0.03 X 10*3/uL (0.04-0.35); Eosinophils % (A) 0.2 %; HCT 40.2 % (39.6-50.0); HGB 13.2 g/dL (13.0-17.0); Immature Grans, Automated 0.4 %; Lymphocytes # (A) 4.04 X 10*3/uL (0.90-5.00); Lymphocytes % (A) 29.4 %; MCH 27.8 pg (27.0-32.0); MCHC 32.8 g/dL (32.0-37.0); MCV 84.8 fL (80.0-97.0); Mean Platelet Volume 10.8 fL (9.5-12.2); Monocytes # (A) 1.32 X 10*3/uL (0.20-1.00); Monocytes % (A) 9.6 %; NRBC Per 100 WBC 0 /100 WBCS (0.0-0.0); Neutrophils # (A) 8.26 X 10*3/uL (1.80-7.70); Neutrophils % (A) 60.1 %; Platelet Count 451 X 10*3/uL (140-440); RBC 4.74 X 10*6/uL (4.40-5.60); RDW 15.8 % (11.5-14.5); WBC 13.74 X 10*3/uL (4.50-10.00)
[2022-08-31 11:01] LABS: African American GFR (CKD) 84.5 (60.0-200.0); Anion Gap 10.7 mmol/L (10.00-18.00); BUN/Creat Ratio 27.43 Ratio (12.00-20.00); Blood Urea Nitrogen 27.7 mg/dL (9.0-27.0); Calcium 8.8 mg/dL (8.7-10.3); Carbon Dioxide 24.5 mmol/L (20.0-27.5); Magnesium 1.8 mg/dL (1.5-2.4); Non-African American GFR(CKD) 72.9 (60.0-200.0); Potassium 4.7 mmol/L (3.5-5.5)
[2022-08-31 11:40] LABS: Glucose,Whole Blood 249 mg/dL (70-110)
[2022-08-31] MEDS: ACETAMINOPHEN TAB 325 MG TAB PO PRN (12:33)
--- NOTE | 2022-08-31 12:59 | P.PN ---
Subjective Progress Note Date: 08/31/22 CHIEF COMPLAINT: Right breast cancer HISTORY OF PRESENT ILLNESS: Patient is postop day #1 status post right breast modified radical mastectomy. Patient denies any pain. Denies any nausea or vomiting. Afebrile. SHAILA drain 170 mL sanguinous output. Afebrile. Hemoglobin stable 13.2. WBC 13.74 Sodium 134 potassium 4.7 creatinine 1.0 glucose 301 magnesium 1.8 PHYSICAL EXAM: VITAL SIGNS: Reviewed. GENERAL: Well-developed in no acute distress. CHEST: Right breast incisional site with ecchymosis on the inferior aspect of the incision. Nontender. Possible developing small hematoma on the lateral aspect of the incision ABDOMEN: Soft. Nondistended. Nontender. NEUROLOGIC: Alert and oriented. Cranial nerves II through XII grossly intact. ASSESSMENT: 1. Right breast cancer status post right breast modified radical mastectomy 2. Leukocytosis likely reactive steroids 3. Diabetes with elevated blood sugars managed by medicine service PLAN: -Continue to monitor incision site -Continue to monitor SHAILA drain output -Repeat CBC in a.m. -Continue pain medication as needed -Encouraged patient to ambulate -DVT prophylaxis subcu heparin and GI prophylaxis Protonix Physician Intelligence Clerk note has been reviewed by physician. Signing provider agrees with the documented findings, assessment, and plan of care. I have personally seen and examined the patient, reviewed the COMMERCIAL TIRE SERVICE TECHNICIAN /PAs history, e xam and MDM and agree with the assessment and plan as written. Based on total visit time, I have performed more than 50% of the visit. As above: Throughout the day the patient says his surgical site has become more swollen. On exam patient has a sizable hematoma at this time. Clinical scenario reviewed with the patient and his . Will take to the operating room for evacuation of hematoma. Risks of recurrent bleeding, infection, scarring, need for second drain placement all reviewed. Patient is agreeable. Objective - Vital Signs Vital signs: Vital Signs Temp 97.8 F 08/31/22 07:57 Pulse 82 08/31/22 07:57 Resp 16 08/31/22 07:57 BP 129/68 08/31/22 07:57 Pulse Ox 97 08/31/22 07:57 FiO2 Intake & Output 08/30/22 08/31/22 08/31/22 18:59 06:59 18:59 Intake Total 1400 Output Total 25 170 Balance 1375 -170 Weight 106.3 kg Intake: IV 1400 Output: Drainage 170 Right Chest 170 Estimated Blood Loss 25 Other: Voiding Method Toilet Toilet - Labs CBC & Chem 7: 08/31/22 06:35 08/31/22 06:35 Labs: Abnormal Lab Results - Last 24 Hours (Table) 08/30/22 08/30/22 08/31/22 Range/Units 16:09 20:35 06:33 WBC (4.50-10.00) X 10*3/uL RDW (11.5-14.5) % Plt Count (140-440) X 10*3/uL Immature Gran # (0.00-0.04) X 10*3/uL Neutrophils # (1.80-7.70) X 10*3/uL Monocytes # (0.20-1.00) X 10*3/uL Eosinophils # (0.04-0.35) X 10*3/uL Sodium (135-145) mmol/L BUN (9.0-27.0) mg/dL BUN/Creatinine Ratio (12.00-20.00) Ratio Glucose (70-110) mg/dL POC Glucose (mg/dL) 127 H 291 H 330 H (70-110) mg/dL 08/31/22 08/31/22 08/31/22 Range/Units 06:35 06:35 11:34 WBC 13.74 H (4.50-10.00) X 10*3/uL RDW 15.8 H (11.5-14.5) % Plt Count 451 H (140-440) X 10*3/uL Immature Gran # 0.05 H (0.00-0.04) X 10*3/uL Neutrophils # 8.26 H (1.80-7.70) X 10*3/uL Monocytes # 1.32 H (0.20-1.00) X 10*3/uL Eosinophils # 0.03 L (0.04-0.35) X 10*3/uL Sodium 134 L (135-145) mmol/L BUN 27.7 H (9.0-27.0) mg/dL BUN/Creatinine Ratio 27.43 H (12.00-20.00) Ratio Glucose 301 H (70-110) mg/dL POC Glucose (mg/dL) 249 H (70-110) mg/dL
--- NOTE | 2022-08-31 14:24 | P.CONS ---
History of Present Illness - Reason for Consult Consult date: 08/31/22 Medical management, postop right breast mastectomy - History of Present Illness This is a pleasant 76-year-old male who was recently admitted under surgical services for right breast cancer and is status post right breast modified radical mastectomy. Patient follows with Dr. Annika funes as his primary care provider with a past medical history of anxiety mellitus, GERD, hyperlipidemia, hypertension, osteoarthritis, spleen cancer post splenectomy in 2005. Patient reports he was never a smoker and denies illicit drug use or alcohol. Patient was admitted for this mastectomy. Patient's blood sugars are elevated most likely due to steroid as patient did receive Decadron and will continue Accu- Cheks before meals and at bedtime and sliding scale along with his home medications which have been resumed. Other home medications reviewed and resumed and recommend to continue taking. Patient's WBC mildly elevated at 13.74 most likely reactive as patient is afebrile denies chest pain or shortness of breath or difficulty or burning with urination. Repeat CBC in the a.m. is ordered. Medical management consulted for hypertension and diabetes. Patient tests his blood sugars and reports he is more controlled at home and takes 7030 Novolog twice daily. Review Of Systems: Constitutional: No fever, no chills, no night sweats. No weight change. No weakness, fatigue or lethargy. No daytime sleepiness. EENT: No headache. No blurred vision or double vision, no loss of vision. No loss of Hearing, no ringing in the ears, no dizziness. No nasal drainage or congestion. No epistaxis. No sore throat. Lungs: No shortness of breath, cough, no sputum production. No wheezing. Cardiovascular: Ports right chest wall pain at the area of excision, no lower extremity edema. No palpitations. No paroxysmal nocturnal dyspnea. No orthopnea. No lightheadedness or dizziness. No syncopal episodes. Abdominal: No abdominal pain. No nausea, vomiting. No diarrhea. No constipation. No bloody or tarry stools.. No loss of appetite. Genitourinary: No dysuria, increased frequency, urgency. No urinary retention. Musculoskeletal: No myalgias. No muscle weakness, no gait dysfunction, no frequent falls. No back pain. No neck pain. Integumentary: No wounds, no lesions. No rash or pruritus. No unusual bruis ing. No change in hair or nails. Neurologic: No aphasia. No facial droop. No change in mentation. No head injury. No headache. No paralysis. No paresthesia. Psychiatric: No depression. No anxiety. No mood swings. Endocrine: Reports abnormal blood sugars while in the hospital. No weight change. No excessive sweating or thirst. No cold intolerance. PHYSICAL EXAMINATION: GENERAL: The patient is alert and oriented x4, Well developed, well nourished. Obese. HEENT: Pupils are round and equally reacting to light. EOMI. no scleral icterus. No conjunctival pallor. Normocephalic, atraumatic. No pharyngeal erythema. No thyromegaly. CARDIOVASCULAR: S1 and S2 muffled PULMONARY: diminished breath sounds bilaterally with no wheezing or rhonchi noted. ABDOMEN: soft. Nontender on exam. obese. non-distended, normoactive bowel sounds. No palpable organomegaly. MUSCULOSKELETAL: No joint swelling or deformity. EXTREMITIES: No cyanosis, clubbing, or pedal edema. NEUROLOGICAL: Gross neurological examination did not reveal any focal deficits. Diffuse weakness SKIN: No rashes. Assessment: Status post right breast modified radical mastectomy due to right breast cancer, postop day 1 Mild leukocytosis, most likely reactive with a possible component of steroid- induced Diabetes mellitus, type 2 insulin-dependent, uncontrolled with hyperglycemia Obesity with a BMI of 31.8 Gastroesophageal reflux disease Hyperlipidemia Hypertension GI prophylaxis DVT prophylaxis Full code Plan: Recommend to continue with current medications and management per general surgery services. Patient was admitted under surgery services and is post right radical mastectomy. Patient reports he is following with a specialist for his liver mass at [facility] an incidentally found some abnormal nodules or findings of the right breast and has been undergoing the outpatient testing which was suggestive of breast cancer and following with Dr. Funes outpatient. Patient is currently afebrile denies chest pain or shortness of breath, denies urinating difficulties or pain with urination and WBC was mildly elevated at 13.74 recommending repeat CBC in the a.m. Patient does have incentive spirome ter at the home and will order while inpatient and encourage the patient to continue using at least 10 times every hour while awake. Will continue with Accu-Cheks before meals and at bedtime along with sliding scale and home medications have been resumed as patient takes 7030 twice a day. Blood sugars elevated most likely due to the diet here along with receiving Decadron. Patient reports his current hemoglobin A1c is 6.9 and well controlled at home. We will continue to follow with surgery during hospitalization. Thank you kindly for this consultation. The impression and plan of care has been dictated by Swapna Mason, nurse practitioner as directed. Dr. Petrona MD I have performed a history and examination and MDM of this patient, discussed the same with the dictator, and agree with the dictator's assessment and plan as written ,documented as a scribe. Based on total visit time, I have performed more than 50% of the visit. Any additional findings or plans will be noted. Past Medical History Past Medical History: Cancer, Diabetes Mellitus, GERD/Reflux, Hyperlipidemia, Hypertension, Osteoarthritis (OA) Additional Past Medical History / Comment(s): SPLEEN CA-2005.. Hx of pancrea titis 2021 History of Any Multi-Drug Resistant Organisms: None Reported Past Surgical History: Joint Replacement, Orthopedic Surgery Additional Past Surgical History / Comment(s): TOTAL Ryland KNEE. RYLAND SHOULDER rotator cuff surgery. RY[place] carpal tunnel. RT GREAT TOE fx with repair. SPLENECTOMY.2006 Past Anesthesia/Blood Transfusion Reactions: Postoperative Nausea & Vomiting (PONV) Past Psychological History: No Psychological Hx Reported Smoking Status: Never smoker Past Alcohol Use History: None Reported Additional Past Alcohol Use History / Comment(s): no alcohol use for 16 years Past Drug Use History: None Reported - Past Family History Brother(s) Family Medical History: Cancer Additional Family Medical History / Comment(s): father with questionable history of [place]'s disease, brother had leukiema Mother Family Medical History: Deep Vein Thrombosis (DVT) Medications and Allergies Home Medications Medication Instructions Recorded Confirmed Type Insulin Aspart Prot/Insuln Asp 35 unit SQ DAILY@0800,1700 05/24/17 08/30/22 History [NovoLOG MIX 70-30 Flexpen] Potassium Chloride [K-Tab ER] 10 meq PO BID 05/24/17 08/23/22 History amLODIPine [Norvasc] 5 mg PO DAILY 05/24/17 08/23/22 History Atorvastatin [Lipitor] 20 mg PO DAILY 06/04/21 08/23/22 History Hydroxychloroquine Sulfate 200 mg PO BID 06/04/21 08/30/22 History Ibuprofen 800 mg PO TID PRN 06/04/21 08/23/22 History Metoprolol Succinate (ER) [Toprol 25 mg PO DAILY 07/14/22 08/23/22 History Xl] lisinopriL [Zestril] 20 mg PO DAILY 07/14/22 08/23/22 History Allergies Allergy/AdvReac Type Severity Reaction Status Date / Time No Known Allergies Allergy Verified 08/23/22 14:35 Physical Exam Vitals: Vital Signs Temp Pulse Resp BP Pulse Ox 08/31/22 07:57 97.8 F 82 16 129/68 97 08/31/22 02:00 98.2 F 83 16 170/83 96 08/30/22 19:49 80 162/82 93 L 08/30/22 19:33 80 164/82 92 L 08/30/22 19:18 84 180/84 96 08/30/22 19:04 84 176/87 92 L 08/30/22 18:48 79 166/80 95 08/30/22 18:33 82 166/96 97 08/30/22 18:18 82 166/96 97 08/30/22 17:48 74 174/84 96 08/30/22 17:20 98.6 F 74 18 166/82 96 08/30/22 17:00 72 16 152/55 95 08/30/22 16:45 70 16 165/74 96 08/30/22 16:30 67 16 209/91 94 L 08/30/22 16:15 67 16 180/93 99 08/30/22 16:02 66 12 191/93 97 Intake and Output 08/30/22 08/31/22 08/31/22 22:59 06:59 14:59 Intake Total 150 Output Total 115 80 Balance 35 -80 Intake: IV 150 Output: Drainage 90 80 Right Chest 90 80 Estimated Blood Loss 25 Other: Voiding Method Toilet Toilet Weight 106.3 kg Results CBC & Chem 7: 08/31/22 06:35 08/31/22 06:35 Labs: Abnormal Lab Results - Last 24 Hours (Table) 08/30/22 08/30/22 08/31/22 Range/Units 16:09 20:35 06:33 POC Glucose (mg/dL) 127 H 291 H 330 H (70-110) mg/dL
[2022-08-31 16:25] LABS: Glucose,Whole Blood 298 mg/dL (70-110)
[2022-08-31] MEDS ORDERED: SODIUM CHLORIDE 0.9% 50 ML with ceFAZolin 2,000 MG IV ONE ×2 (18:39)
[2022-08-31] MEDS ORDERED: SODIUM CHLORIDE 0.9% 1,000 ML IV ONE (18:39)
--- NOTE | 2022-08-31 19:29 | P.OP ---
Date of Procedure: 08/31/22 Procedure(s) Performed: PREOPERATIVE DIAGNOSIS: Right chest wall hematoma status post mastectomy POSTOPERATIVE DIAGNOSIS: Same PROCEDURE: Evacuation right chest wall hematoma SURGEON: Dawson EBL: 50 mL blood loss with surgery, 400 mL evacuation of old clot and blood ANESTHESIA: Gen. COMPLICATIONS: None OPERATIVE PROCEDURE: Patient placed in the operating table in the supine position. The patient was placed under general anesthesia. The previous Dermabond tape was removed. The chest wall was prepped and draped sterilely. The previous incision was re-incised. A large hematoma was identified and evacuated. The size of the hematoma with blood was estimated at 400 mL. Careful inspection of the surgical field took place. A few small areas of oozing were seen and controlled either with clip senior lead developer or electrocautery. The most notable location was involving the pectoralis muscle laterally. No further bleeding was seen following that. Careful irrigation took place on numerous occasions. A second drain was placed medial to the previously placed drain. This was sutured to the skin using a 3-0 silk stitch. The posterior drain was looped into the axilla and the anterior drain was looped underneath the skin closure. The subcutaneous tissues were closed using 3-0 Vicryl sutures. The skin was then closed using jorje. Sterile dressings were applied. DISPOSITION: Stable to recovery room
[2022-08-31 20:33] LABS: Glucose,Whole Blood 241 mg/dL (70-110)
[2022-08-31 21:08] LABS: Basophils # (A) 0.1 k/uL (0-0.2); Basophils % (A) 1 %; Eosinophils # (A) 0.2 k/uL (0-0.7); Eosinophils % (A) 1 %; HCT 36.8 % (39.0-53.0); HGB 11.9 gm/dL (13.0-17.5); Hypochromasia Slight; Lymphocytes # (A) 4.5 k/uL (1.0-4.8); Lymphocytes % (A) 36 %; MCH 29.2 pg (25.0-35.0); MCHC 32.3 g/dL (31.0-37.0); MCV 90.3 fL (80.0-100.0); Mean Platelet Volume 8.4; Monocytes % (A) 8 %; Neutrophils # (A) 6.5 k/uL (1.3-7.7); Neutrophils % (A) 52 %; Platelet Count 373 k/uL (150-450); RBC 4.08 m/uL (4.30-5.90); RDW 14.5 % (11.5-15.5); WBC 12.4 k/uL (3.8-10.6)
[2022-08-31 21:24] LABS: INR 1.1 (<1.2); Prothrombin Time 11.5 sec (9.0-12.0)
[2022-08-31] MEDS ORDERED: ONDANSETRON 4 MG/2 ML VIAL IVP PRN (22:55)
[2022-09-01 06:02] LABS: Glucose,Whole Blood 185 mg/dL (70-110)
[2022-09-01] MEDS: LACTATED RINGERS 1,000 ML IV SCH (06:56)
[2022-09-01] MEDS: PANTOPRAZOLE 40 MG/10 ML VIAL IV SCH (07:59)
[2022-09-01] MEDS: INSULIN ASPART (NovoLOG) 100 UNIT/ML VIAL SQ SCH ×4 (07:59→20:46)
[2022-09-01] MEDS: INSULN ASP PRT/INSULIN ASPART 100 UNIT/ML 10 ML VIAL SQ SCH ×2 (07:59→17:51)
[2022-09-01] MEDS: lisinopriL 20 MG TAB PO SCH (09:08)
[2022-09-01] MEDS: HEPARIN SODIUM,PORCINE/PF 5,000 UNIT/0.5 ML SYRINGE SQ SCH ×3 (09:08→20:47)
[2022-09-01] MEDS: ATORVASTATIN 20 MG TAB PO SCH (09:08)
[2022-09-01] MEDS: amLODIPine 5 MG TAB PO SCH (09:08)
[2022-09-01] MEDS: METOPROLOL SUCCINATE (ER) 25 MG TAB.ER.24H PO SCH (09:08)
[2022-09-01] MEDS: DOCUSATE 100 MG CAP PO SCH ×2 (09:08→20:46)
--- NOTE | 2022-09-01 10:09 | USB ---
EXAM: Needle localization with wire placement. CLINICAL HISTORY: Recent biopsy proven cancer in the right breast including axillary lymph node invol vement TECHNIQUE: Attempted Needle localization with wire placement and surgical excision of area of concern in the right breast. Additional diagnostic mammogram views right breast. Right shoulder x-ray [address] chest without contrast. COMPARISON: Ultrasound-guided right breast biopsy July 23, 2022 and older studies including chest CT June 04, 2022 FINDINGS: The procedure of needle localization with wire placement and than surgical excision was exp lained to the patient. Benefits, alternatives, and risks were discussed. An informed consent was th en obtained. Case is reviewed prior to procedure. Patient is to have right breast mastectomy. Surgeon wishes to lo calize the butterfly clip which was attempted to be deployed after 7 core biopsies of a abnormal righ t axillary lymph node. Preprocedure ultrasound redemonstrates elongated lymph node in the axillary ta il just under 2 cm in depth along with a more prominent deeper lymph node near the tip 4 cm in depth which has lost central fatty hilum and a smaller lymph node which has lost central fatty hilum at rou ghly 1.5 cm in depth in the axillary tail. No distinct biopsy clip clearly seen. Difficult on review of prior study 2 9 which lymph node was sampled once and which was sampled multiple times with clip d eployment. Additional mammographic images were performed which shows several prominent and borderline suspicious lymph nodes as well as the elongated lymph node. No biopsy clip clearly seen. Case discus sed with radiologist to perform the biopsy. It was uncertain which lymph node was sampled with positi ve results and clip placement. It is not well documented on last image after butterfly clip deploymen t which only shows biopsy track upon review. It was attempted to x-ray of right shoulder which did not definitely show biopsy clip but butterfly b iopsy clip also not distinctly identified when second clip is taped to patient's axillary region. Onl y surgical change to right humeral head from rotator cuff surgery is identified. At this point case is extensively discussed with surgeon. It is possible clip which was never docume nted as successfully deployed on mammogram or ultrasound was displaced or extruded on original biopsy . Ordering surgeon requested CT to further evaluate. CT redemonstrates suspicious prominent right axil vera lymph nodes without definitive biopsy clip though this may not show up well on CT similar to att empted radiograph. Primary right breast lesion or neoplasm near the nipple axial image 38 is redemons trated. Aneurysm clips with heterogeneous areas in the right hepatic lobe are again seen. Intralumina l rim calcified gallstone redemonstrated. More prominent fat replaced atrophy of the pancreas is note d. A four-vessel aortic arch is redemonstrated which is normal variant. Coronary artery calcification s are redemonstrated. At this point on discussion with surgeon and is felt reasonable to perform mastectomy with right axil vera lymph node dissection due to several suspicious lymph nodes and no definitive biopsy clip in the sampled lymph nodes. I do believe biopsy clip likely was extruded at time of sampling. Patient was agreeable to the above, nuclear medicine sentinel lymph node injection was not performed. No needle l ocalization was performed because of uncertain age which lymph node was targeted with positive result s as definitive biopsy clip also not identified The patient tolerated the attempted procedure well without any immediate complication. The patient w as kept in the radiology department for short stay after the attempted procedure and then taken to [facility] for surgery. The patient was kept in hospital for short stay after the procedure and then disc harged home in stable condition. IMPRESSION: UnSuccessful, eventually canceled needle localization with wire placement and surgical ex cision of abnormal lymph node in the right breast, full pathology results to follow from mastectomy a nd lymph node dissection.
[2022-09-01 10:34] LABS: HCT 34.3 % (39.6-50.0); MCH 27.8 pg (27.0-32.0); MCHC 32.1 g/dL (32.0-37.0); MCV 86.8 fL (80.0-97.0); NRBC Per 100 WBC 0 /100 WBCS (0.0-0.0); Platelet Count 404 X 10*3/uL (140-440); RBC 3.95 X 10*6/uL (4.40-5.60); RDW 15.9 % (11.5-14.5); WBC 13.34 X 10*3/uL (4.50-10.00)
[2022-09-01 11:25] LABS: Glucose,Whole Blood 278 mg/dL (70-110)
[2022-09-01] MEDS: polyethylene glycoL 3350 17 GM POWD.PACK PO SCH (12:23)
--- NOTE | 2022-09-01 13:08 | P.PN ---
Subjective Progress Note Date: 09/01/22 CHIEF COMPLAINT: Right breast cancer HISTORY OF PRESENT ILLNESS: Patient is postop day #2 status post right breast modified radical mastectomy. Patient taken back to the OR yesterday evening for a right chest wall hematoma and is status post evacuation of the hematoma. Patient has minimal pain today. He did vomit yesterday after surgery. He is having flatus. No bowel movement for 2 days. He is asking for a laxative. Afebrile. WBC 12.4-13.3 for Hgb is stable at 11 platelets [address] cortes with 370 ml dark sanguinous output. PHYSICAL EXAM: VITAL SIGNS: Reviewed. GENERAL: Well-developed in no acute distress. CHEST: Right breast incisional site with ecchymosis on the inferior aspect of the incision. Nontender. Lateral aspect of the incision site is softer ABDOMEN: Soft. Nondistended. Nontender. NEUROLOGIC: Alert and oriented. Cranial nerves II through XII grossly intact. ASSESSMENT: 1. Right breast cancer status post right breast modified radical mastectomy 2. Leukocytosis 3. Diabetes PLAN: -Continue to monitor incision site -Continue to monitor SHAILA drain output -Repeat CBC in a.m. -miralax added for constipation -Continue pain medication as needed -Encouraged patient to ambulate -DVT prophylaxis subcu heparin and GI prophylaxis Protonix Physician Commercial Title Examiner note has been reviewed by physician. Signing provider agrees with the documented findings, assessment, and plan of care. Patient doing well today. He is having less pain. No sizable hematoma on exam. Labs noted. Anticipate probable discharge tomorrow. Objective - Vital Signs Vital signs: Vital Signs Temp 97.8 F 09/01/22 08:00 Pulse 85 09/01/22 08:00 Resp 17 09/01/22 08:00 BP 145/81 09/01/22 08:00 Pulse Ox 97 09/01/22 08:00 FiO2 Intake & Output 08/31/22 09/01/22 09/01/22 18:59 06:59 18:59 Intake Total 650 150 Output Total 80 290 50 Balance 570 -140 -50 Intake: IV 650 150 Output: Drainage 80 240 50 Right Chest 80 240 50 Estimated Blood Loss 50 Other: Voiding Method Toilet Toilet Toilet # Voids 2 1 - Labs CBC & Chem 7: 09/01/22 06:52 08/31/22 06:35 Labs: Abnormal Lab Results - Last 24 Hours (Table) 08/31/22 08/31/22 08/31/22 Range/Units 16:22 20:31 20:43 WBC 12.4 H (3.8-10.6) k/uL RBC 4.08 L (4.30-5.90) m/uL Hgb 11.9 L (13.0-17.5) gm/dL Hct 36.8 L (39.0-53.0) % RDW (11.5-14.5) % POC Glucose (mg/dL) 298 H 241 H (70-110) mg/dL 09/01/22 09/01/22 09/01/22 Range/Units 06:01 06:52 11:22 WBC 13.34 H (3.8-10.6) k/uL RBC 3.95 L (4.30-5.90) m/uL Hgb 11.0 L (13.0-17.5) gm/dL Hct 34.3 L (39.0-53.0) % RDW 15.9 H (11.5-14.5) % POC Glucose (mg/dL) 185 H 278 H (70-110) mg/dL
[2022-09-01] MEDS ORDERED: bisacodyL 10 MG SUPP RECTAL PRN (14:42)
[2022-09-01] MEDS ORDERED: NA PHOS,M-B/NA PHOS,DI-BA 133 ML ENEMA RECTAL PRN (14:42)
--- NOTE | 2022-09-01 14:51 | P.PN ---
Subjective Progress Note Date: 09/01/22 - Reason for Consult Consult date: 08/31/22 Medical management, postop right breast mastectomy - History of Present Illness This is a pleasant 76-year-old male who was recently admitted under surgical services for right breast cancer and is status post right breast modified radical mastectomy. Patient follows with Dr. Annika funes as his primary care provider with a past medical history of anxiety mellitus, GERD, hyperlipidemia, hypertension, osteoarthritis, spleen cancer post splenectomy in 2005. Patient reports he was never a smoker and denies illicit drug use or alcohol. Patient was admitted for this mastectomy. Patient's blood sugars are elevated most likely due to steroid as patient did receive Decadron and will continue Accu- Cheks before meals and at bedtime and sliding scale along with his home medications which have been resumed. Other home medications reviewed and resumed and recommend to continue taking. Patient's WBC mildly elevated at 13.74 most likely reactive as patient is afebrile denies chest pain or shortness of breath or difficulty or burning with urination. Repeat CBC in the a.m. is ordered. Medical management consulted for hypertension and diabetes. Patient tests his blood sugars and reports he is more controlled at home and takes 7030 Novolog twice daily. 09/01/2022 Patient is seen in follow-up this morning reports feeling well tolerating diet. Patient reports passing gas with no bowel movement over the last 2 days. Recommend bowel regimen and will add as needed medications. Encouraged increase activity as tolerated as well. Patient had increasing developing hematoma yesterday afternoon at the surgical site requiring patient to go back to the OR and underwent hematoma evacuation with Dr. Funes. Per surgical report approximately 400 mL removed and evacuated. Patient's hemoglobin is stable although less than yesterday is currently 11.9. WBC remains elevated at 13.34. Patient is afebrile denies chest pain, shortness of breath, or difficulties in urinating or pain with urination. Patient's blood sugars continued to be slightly elevated and trending down recommend continue with current medication regimen and Accu-Cheks before meals and at bedtime. Patient was given a dose of prophylactic antibiotic in the form of cefazolin prior to hematoma evacuation. Patient with an incentive spirometer at the bedside encourage the patient to continue using at least 10 times every hour while awake. Encouraged increase activity as tolerated and continued oral intake. Patient denies nausea or vomiting reports to tolerating diet. Likely discharge in 24 hours. Recommend follow-up labs in a.m. Review of systems: Constitutional: No reports of fatigue, fever, or chills Cardiovascular: No reports of chest pain or palpitations Respiratory: No reports of shortness of breath or cough GI: No reports of nausea, vomiting, or diarrhea : No reports of dysuria or retention Neurovascular: No reports of weakness or numbness All medications have been reviewed PHYSICAL EXAMINATION: GENERAL: The patient is alert and oriented x4, Well developed, well nourished. Obese. HEENT: Pupils are round and equally reacting to light. EOMI. no scleral icterus. No conjunctival pallor. Normocephalic, atraumatic. No pharyngeal erythema. No thyromegaly. CARDIOVASCULAR: S1 and S2 muffled PULMONARY: diminished breath sounds bilaterally with no wheezing or rhonchi noted. ABDOMEN: soft. Nontender on exam. obese. non-distended, normoactive bowel sounds. No palpable organomegaly. MUSCULOSKELETAL: No joint swelling or deformity. EXTREMITIES: No cyanosis, clubbing, or pedal edema. NEUROLOGICAL: Gross neurological examination did not reveal any focal deficits. Diffuse weakness SKIN: No rashes. Assessment: Status post right breast modified radical mastectomy due to right breast cancer, postop day 2 Postoperative right chest wall hematoma, status post evacuation of approximately 400 mL Mild leukocytosis, most likely reactive with a possible component of steroid-ind uced Diabetes mellitus, type 2 insulin-dependent, uncontrolled with hyperglycemia Obesity with a BMI of 31.8 Gastroesophageal reflux disease Hyperlipidemia Hypertension GI prophylaxis DVT prophylaxis Full code Plan: Recommend to continue with current medications and management per general surgery services. Patient was admitted under surgery services and is post right radical mastectomy. Patient developed a hematoma at the surgical site requiring OR yesterday evening for evacuation of hematoma of approximately 400 mL. Hemoglobin is stable although lower than yesterday. WBC remains slightly elevated although patient is afebrile. Patient was given a dose of cefazolin in the OR. Encouraged increased activity as tolerated and continued oral intake. Recommend to continue monitoring blood sugars and continue with current medication regimen. Continue sliding scale as well. Incentive spirometer ordered and encouraged the patient to continue using at least 10 times every hour while awake. Recommend follow-up labs in the a.m. with possible discharge in 24 hours per surgery. We will continue to follow with surgery during hospitalization. Thank you kindly for this consultation. The impression and plan of care has been dictated by Swapna Mason, nurse practitioner as directed. Dr. Petrona MD I have performed a history and examination and MDM of this patient, discussed the same with the dictator, and agree with the dictator's assessment and plan as written ,documented as a scribe. Based on total visit time, I have performed more than 50% of the visit. Any additional findings or plans will be noted. Objective - Vital Signs Vital signs: Vital Signs Temp 97.5 F L 09/01/22 01:06 Pulse 62 09/01/22 01:06 Resp 18 09/01/22 01:06 BP 147/74 09/01/22 01:06 Pulse Ox 97 09/01/22 01:06 FiO2 Intake & Output 08/31/22 09/01/22 09/01/22 18:59 06:59 18:59 Intake Total 650 150 Output Total 80 290 Balance 570 -140 Intake: IV 650 150 Output: Drainage 80 240 Right Chest 80 240 Estimated Blood Loss 50 Other: Voiding Method Toilet Toilet # Voids 2 1 - Labs CBC & Chem 7: 09/01/22 06:52 08/31/22 06:35 Labs: Abnormal Lab Results - Last 24 Hours (Table) 08/31/22 08/31/22 08/31/22 Range/Units 06:35 06:35 11:34 WBC 13.74 H (4.50-10.00) X 10*3/uL RBC (4.30-5.90) m/uL Hgb (13.0-17.5) gm/dL Hct (39.0-53.0) % RDW 15.8 H (11.5-14.5) % Plt Count 451 H (140-440) X 10*3/uL Immature Gran # 0.05 H (0.00-0.04) X 10*3/uL Neutrophils # 8.26 H (1.80-7.70) X 10*3/uL Monocytes # 1.32 H (0.20-1.00) X 10*3/uL Eosinophils # 0.03 L (0.04-0.35) X 10*3/uL Sodium 134 L (135-145) mmol/L BUN 27.7 H (9.0-27.0) mg/dL BUN/Creatinine Ratio 27.43 H (12.00-20.00) Ratio Glucose 301 H (70-110) mg/dL POC Glucose (mg/dL) 249 H (70-110) mg/dL 08/31/22 08/31/22 08/31/22 Range/Units 16:22 20:31 20:43 WBC 12.4 H (4.50-10.00) X 10*3/uL RBC 4.08 L (4.30-5.90) m/uL Hgb 11.9 L (13.0-17.5) gm/dL Hct 36.8 L (39.0-53.0) % RDW (11.5-14.5) % Plt Count (140-440) X 10*3/uL Immature Gran # (0.00-0.04) X 10*3/uL Neutrophils # (1.80-7.70) X 10*3/uL Monocytes # (0.20-1.00) X 10*3/uL Eosinophils # (0.04-0.35) X 10*3/uL Sodium (135-145) mmol/L BUN (9.0-27.0) mg/dL BUN/Creatinine Ratio (12.00-20.00) Ratio Glucose (70-110) mg/dL POC Glucose (mg/dL) 298 H 241 H (70-110) mg/dL 09/01/22 Range/Units 06:01 WBC (4.50-10.00) X 10*3/uL RBC (4.30-5.90) m/uL Hgb (13.0-17.5) gm/dL Hct (39.0-53.0) % RDW (11.5-14.5) % Plt Count (140-440) X 10*3/uL Immature Gran # (0.00-0.04) X 10*3/uL Neutrophils # (1.80-7.70) X 10*3/uL Monocytes # (0.20-1.00) X 10*3/uL Eosinophils # (0.04-0.35) X 10*3/uL Sodium (135-145) mmol/L BUN (9.0-27.0) mg/dL BUN/Creatinine Ratio (12.00-20.00) Ratio Glucose (70-110) mg/dL POC Glucose (mg/dL) 185 H (70-110) mg/dL
[2022-09-01 16:35] LABS: Glucose,Whole Blood 124 mg/dL (70-110)
[2022-09-01 20:46] LABS: Glucose,Whole Blood 263 mg/dL (70-110)
[2022-09-01 21:14] VITALS: RESP 18
[2022-09-02] MEDS: ACETAMINOPHEN TAB 325 MG TAB PO PRN (03:12)
[2022-09-02 05:57] LABS: Glucose,Whole Blood 136 mg/dL (70-110)
[2022-09-02] MEDS: INSULIN ASPART (NovoLOG) 100 UNIT/ML VIAL SQ SCH ×2 (06:17→12:17)
[2022-09-02] MEDS: LACTATED RINGERS 1,000 ML IV SCH (06:18)
[2022-09-02 08:29] VITALS: BP 170/81; PULSE 76; TEMP 97.7
[2022-09-02] MEDS: METOPROLOL SUCCINATE (ER) 25 MG TAB.ER.24H PO SCH (09:01)
[2022-09-02] MEDS: DOCUSATE 100 MG CAP PO SCH (09:01)
[2022-09-02] MEDS: lisinopriL 20 MG TAB PO SCH (09:01)
[2022-09-02] MEDS: INSULN ASP PRT/INSULIN ASPART 100 UNIT/ML 10 ML VIAL SQ SCH (09:01)
[2022-09-02] MEDS: ATORVASTATIN 20 MG TAB PO SCH (09:01)
[2022-09-02] MEDS: HEPARIN SODIUM,PORCINE/PF 5,000 UNIT/0.5 ML SYRINGE SQ SCH (09:01)
[2022-09-02] MEDS: amLODIPine 5 MG TAB PO SCH (09:01)
[2022-09-02] MEDS: polyethylene glycoL 3350 17 GM POWD.PACK PO SCH (09:01)
[2022-09-02] MEDS: PANTOPRAZOLE 40 MG/10 ML VIAL IV SCH (10:03)
[2022-09-02 10:35] LABS: Basophils # (A) 0.06 X 10*3/uL (0.00-0.10); Basophils % (A) 0.4 %; Eosinophils # (A) 0.58 X 10*3/uL (0.04-0.35); Eosinophils % (A) 4.3 %; HGB 10.5 g/dL (13.0-17.0); Immature Grans, Automated 0.2 %; Lymphocytes # (A) 4.64 X 10*3/uL (0.90-5.00); Lymphocytes % (A) 34.6 %; MCH 28.2 pg (27.0-32.0); MCHC 31.8 g/dL (32.0-37.0); MCV 88.7 fL (80.0-97.0); Mean Platelet Volume 11.3 fL (9.5-12.2); Monocytes # (A) 1.44 X 10*3/uL (0.20-1.00); Monocytes % (A) 10.7 %; NRBC Per 100 WBC 0.2 /100 WBCS (0.0-0.0); Neutrophils # (A) 6.67 X 10*3/uL (1.80-7.70); Neutrophils % (A) 49.8 %; Platelet Count 405 X 10*3/uL (140-440); RBC 3.72 X 10*6/uL (4.40-5.60); RDW 15.8 % (11.5-14.5); WBC 13.42 X 10*3/uL (4.50-10.00)
[2022-09-02 12:14] LABS: Glucose,Whole Blood 159 mg/dL (70-110)
--- NOTE | 2022-09-02 12:24 | P.DS ---
Providers Date of admission: 09/01/22 07:50 Expected date of discharge: 09/02/22 Attending physician: Eben Osman Consults: 08/30/22 15:49 Consult Physician Routine Consulting Provider: Ambrosio Lowe Consult Reason/Comments: Medical management Do you want consulting provider notified?: Yes Primary care physician: Annika Osman Hospital Course: Discharge diagnosis 1. Right breast cancer status post right breast modified radical mastectomy 2. Right chest wall hematoma status post evacuation of hematoma 3. Leukocytosis reactive 4. Diabetes Hospital course 76-year-old male with personal history of T-cell lymphoma. Patient recently diagnosed with a large liver mass and during that workup was found to have a right-sided breast mass. Patient is status post right breast modified radical mastectomy. And postop day #1 he's developed a right sided chest wall hematoma. He is status post evacuation of the hematoma. Patient reports his pain is controlled. He is afebrile. Hemoglobin is 10.5 at discharge. He is tolerating diet. He is up and ambulating. On exam patient does have ecchymosis around the incision and along the right side of his chest wall extending towards the back. Patient is stable for discharge. Please refer to chart for any further details. Physician Construction Administrator note has been reviewed by physician. Signing provider agrees with the documented findings, assessment, and plan of care. Patient doing well today. No pain. Drain output diminished. Labs noted. January discharge. Follow- up one week. Patient Condition at Discharge: Stable Plan - Discharge Summary Discharge Rx Participant: No New Discharge Prescriptions: New Acetaminophen Tab [Tylenol Tab] 650 mg PO Q4H PRN #30 tablet PRN Reason: Pain Continue amLODIPine [Norvasc] 5 mg PO DAILY Potassium Chloride [K-Tab ER] 10 meq PO BID Insulin Aspart Prot/Insuln Asp [NovoLOG MIX 70-30 Flexpen] 35 unit SQ DAILY@0800,1700 Hydroxychloroquine Sulfate 200 mg PO BID Ibuprofen 800 mg PO TID PRN PRN Reason: Pain Atorvastatin [Lipitor] 20 mg PO DAILY lisinopriL [Zestril] 20 mg PO DAILY Metoprolol Succinate (ER) [Toprol XL] 25 mg PO DAILY Discharge Medication List Insulin Aspart Prot/Insuln Asp [NovoLOG MIX 70-30 Flexpen] 35 unit SQ DAILY@0800,1700 05/24/17 [History] Potassium Chloride [K-Tab ER] 10 meq PO BID 05/24/17 [History] amLODIPine [Norvasc] 5 mg PO DAILY 05/24/17 [History] Atorvastatin [Lipitor] 20 mg PO DAILY 06/04/21 [History] Hydroxychloroquine Sulfate 200 mg PO BID 06/04/21 [History] Ibuprofen 800 mg PO TID PRN 06/04/21 [History] Metoprolol Succinate (ER) [Toprol XL] 25 mg PO DAILY 07/14/22 [History] lisinopriL [Zestril] 20 mg PO DAILY 07/14/22 [History] Acetaminophen Tab [Tylenol Tab] 650 mg PO Q4H PRN #30 tablet 09/02/22 [Rx] Follow up Appointment(s)/Referral(s): Eben Osman MD [Medical Doctor] - 09/08/22 3:30 pm Annika Osman MD [Primary Care Provider] - 09/08/22 10:30 am Ambulatory/Diagnostic Orders: Complete Blood Count w/diff [LAB.AMB] Time Frame: 3 Days, Location: None Selected Patient Instructions/Handouts: Mastectomy (DC) Activity/Diet/Wound Care/Special Instructions: No lifting over 10 pounds You may shower. No soaking or tub baths for 2 weeks Very light activity until you are reevaluated at your follow up appointment with your surgeon Keep a log of SHAILA drain output and bring with you to your follow-up appointment Milk/strip drains 2-3 times a day Hold off taking ibuprofen until seen by surgeon in office Discharge Disposition: HOME SELF-CARE
--- NOTE | 2022-09-02 13:52 | P.PN ---
Subjective Progress Note Date: 09/02/22 - Reason for Consult Consult date: 08/31/22 Medical management, postop right breast mastectomy - History of Present Illness This is a pleasant 76-year-old male who was recently admitted under surgical services for right breast cancer and is status post right breast modified radical mastectomy. Patient follows with Dr. Annika funes as his primary care provider with a past medical history of anxiety mellitus, GERD, hyperlipidemia, hypertension, osteoarthritis, spleen cancer post splenectomy in 2005. Patient reports he was never a smoker and denies illicit drug use or alcohol. Patient was admitted for this mastectomy. Patient's blood sugars are elevated most likely due to steroid as patient did receive Decadron and will continue Accu- Cheks before meals and at bedtime and sliding scale along with his home medications which have been resumed. Other home medications reviewed and resumed and recommend to continue taking. Patient's WBC mildly elevated at 13.74 most likely reactive as patient is afebrile denies chest pain or shortness of breath or difficulty or burning with urination. Repeat CBC in the a.m. is ordered. Medical management consulted for hypertension and diabetes. Patient tests his blood sugars and reports he is more controlled at home and takes 7030 Novolog twice daily. 09/01/2022 Patient is seen in follow-up this morning reports feeling well tolerating diet. Patient reports passing gas with no bowel movement over the last 2 days. Recommend bowel regimen and will add as needed medications. Encouraged increase activity as tolerated as well. Patient had increasing developing hematoma yesterday afternoon at the surgical site requiring patient to go back to the OR and underwent hematoma evacuation with Dr. Funes. Per surgical report approximately 400 mL removed and evacuated. Patient's hemoglobin is stable although less than yesterday is currently 11.9. WBC remains elevated at 13.34. Patient is afebrile denies chest pain, shortness of breath, or difficulties in urinating or pain with urination. Patient's blood sugars continued to be slightly elevated and trending down recommend continue with current medication regimen and Accu-Cheks before meals and at bedtime. Patient was given a dose of prophylactic antibiotic in the form of cefazolin prior to hematoma evacuation. Patient with an incentive spirometer at the bedside encourage the patient to continue using at least 10 times every hour while awake. Encouraged increase activity as tolerated and continued oral intake. Patient denies nausea or vomiting reports to tolerating diet. Likely discharge in 24 hours. Recommend follow-up labs in a.m. 09/02/2022 Patient is seen and evaluated in follow-up this morning with no acute overnight issues noted. Patient is post hematoma evacuation of the right breast being followed closely by general surgery. Hemoglobin remained stable at 10.5 today and drains noted and will discuss further with surgery as keeping the SHAILA drains or removing prior to discharge. Patient is afebrile denies chest pain or shortness of breath. Incentive spirometer is at the bedside and encourage the patient to take home and continue using at least 10 times every hour while awake. Patient also follows with Bethel Rice and has a follow-up appointment. Encouraged following up with primary care provider and repeat labs in the next few days to monitor WBC. Review of systems: Constitutional: No reports of fatigue, fever, or chills Cardiovascular: No reports of chest pain or palpitations Respiratory: No reports of shortness of breath or cough GI: No reports of nausea, vomiting, or diarrhea : No reports of dysuria or retention Neurovascular: No reports of weakness or numbness All medications have been reviewed PHYSICAL EXAMINATION: GENERAL: The patient is alert and oriented x4, Well developed, well nourished. Obese. HEENT: Pupils are round and equally reacting to light. EOMI. no scleral icterus. No conjunctival pallor. Normocephalic, atraumatic. No pharyngeal erythema. No t hyromegaly. CARDIOVASCULAR: S1 and S2 muffled PULMONARY: diminished breath sounds bilaterally with no wheezing or rhonchi noted. ABDOMEN: soft. Nontender on exam. obese. non-distended, normoactive bowel sounds. No palpable organomegaly. MUSCULOSKELETAL: No joint swelling or deformity. EXTREMITIES: No cyanosis, clubbing, or pedal edema. NEUROLOGICAL: Gross neurological examination did not reveal any focal deficits. Diffuse weakness SKIN: No rashes. Assessment: Status post right breast modified radical mastectomy due to right breast cancer, postop day 3 Postoperative right chest wall hematoma, status post evacuation of approximately 400 mL Mild leukocytosis, most likely reactive with a possible component of steroid- induced Diabetes mellitus, type 2 insulin-dependent, uncontrolled with hyperglycemia Obesity with a BMI of 31.8 Gastroesophageal reflux disease Hyperlipidemia Hypertension GI prophylaxis DVT prophylaxis Full code Plan: Recommend to continue with current medications and management per general surgery services. Patient was admitted under surgery services and is post right radical mastectomy. Patient developed a hematoma at the surgical site requiring OR for evacuation of hematoma of approximately 400 mL. Hemoglobin is stable at 10.5 today. WBC remains slightly elevated although patient is afebrile. Prescription provided and recommend repeat labs in the outpatient setting in the next few days. Encouraged increased activity as tolerated and continued oral intake. Recommend to continue monitoring blood sugars and continue with current medication regimen. Continue sliding scale as well. Incentive spirometer encouraged at least 10 times every hour while awake. Patient reports he is most likely being discharged today. Recommend outpatient follow-up with his primary care provider Dr. Annika Funes We will continue to follow with surgery during hospitalization. Thank you kindly for this consultation. The impression and plan of care has been dictated by Swapna Mason, nurse practitioner as directed. Dr. Mynor MD I have performed a history and examination and MDM of this patient, discussed the same with the dictator, and agree with the dictator's assessment and plan as written ,documented as a scribe. Based on total visit time, I have performed more than 50% of the visit. Any additional findings or plans will be noted. Objective - Vital Signs Vital signs: Vital Signs Temp 97.7 F 09/02/22 08:04 Pulse 76 09/02/22 08:04 Resp 18 09/02/22 08:04 BP 170/81 09/02/22 08:04 Pulse Ox 97 09/02/22 08:04 FiO2 Intake & Output 09/01/22 09/02/22 09/02/22 18:59 06:59 18:59 Output Total 175 115 Balance -175 -115 Output: Drainage 175 115 Right Chest 175 115 Other: Voiding Method Toilet Toilet # Voids 2 # Bowel Movements 1 - Labs CBC & Chem 7: 09/02/22 07:19 08/31/22 06:35 Labs: Abnormal Lab Results - Last 24 Hours (Table) 09/01/22 09/01/22 09/01/22 Range/Units 06:52 11: 16:34 WBC 13.34 H (4.50-10.00) X 10*3/uL RBC 3.95 L (4.40-5.60) X 10*6/uL Hgb 11.0 L (13.0-17.0) g/dL Hct 34.3 L (39.6-50.0) % RDW 15.9 H (11.5-14.5) % POC Glucose (mg/dL) 278 H 124 H (70-110) mg/dL 09/01/22 09/02/22 Range/Units 20:44 05:55 WBC (4.50-10.00) X 10*3/uL RBC (4.40-5.60) X 10*6/uL Hgb (13.0-17.0) g/dL Hct (39.6-50.0) % RDW (11.5-14.5) % POC Glucose (mg/dL) 263 H 136 H (70-110) mg/dL
== END 2022-09-02 14:20 | disposition home or self-care (01) | DRG 580 ==
LOC: OR 06:41 → 4SSUR 16:02 → OR 09-01 06:49 → 4SSUR 09-01 07:50
PROVIDERS: ADMIT Surgery; ATTEND Surgery
PROC: 0HTT0ZZ Resection of Right Breast, Open Approach (ICD-10-PCS; 2022-08-30)
PROC: 07B50ZX Excision of Right Axillary Lymphatic, Open Approach, Diagnostic (ICD-10-PCS; principal; 2022-08-30 09:25)
PROC: 0JC60ZZ Extirpation of Matter from Chest Subcutaneous Tissue and Fascia, Open Approach (ICD-10-PCS; 2022-08-31)
DX: C50.021 Malignant neoplasm of nipple and areola, right male breast (principal); C77.3 Secondary and unspecified malignant neoplasm of axilla and upper limb lymph nodes; E11.65 Type 2 diabetes mellitus with hyperglycemia; E66.9 Obesity, unspecified; I10 Essential (primary) hypertension; Z68.31 Body mass index [BMI] 31.0-31.9, adult; R16.0 Hepatomegaly, not elsewhere classified; D72.828 Other elevated white blood cell count; F41.9 Anxiety disorder, unspecified; M19.90 Unspecified osteoarthritis, unspecified site; E78.5 Hyperlipidemia, unspecified; T38.0X5A Adverse effect of glucocorticoids and synthetic analogues, initial encounter; S20.211A Contusion of right front wall of thorax, initial encounter; K21.9 Gastro-esophageal reflux disease without esophagitis; Z85.72 Personal history of non-Hodgkin lymphomas; Z90.81 Acquired absence of spleen; Z85.89 Personal history of malignant neoplasm of other organs and systems; Z79.899 Other long term (current) drug therapy; Z79.4 Long term (current) use of insulin; Z17.0 Estrogen receptor positive status [ER+]; Z15.01 Genetic susceptibility to malignant neoplasm of breast; Z87.19 Personal history of other diseases of the digestive system
CPT/HCPCS: 71250; 77065; 80048; 83735; 85025; 85027; 85610; 86850; 86900; 86901; 88309

== ENCOUNTER → 2022-09-06 | Outpatient (CLI) | payer MEDICARE ==
[2022-09-06 20:18] LABS: Basophils # (A) 0.07 X 10*3/uL (0.00-0.10); Basophils % (A) 0.4 %; Eosinophils # (A) 0.28 X 10*3/uL (0.04-0.35); Eosinophils % (A) 1.8 %; HCT 36.1 % (39.6-50.0); HGB 11.4 g/dL (13.0-17.0); Immature Grans, Automated 0.4 %; Lymphocytes # (A) 4.64 X 10*3/uL (0.90-5.00); Lymphocytes % (A) 29.1 %; MCH 28.7 pg (27.0-32.0); MCHC 31.6 g/dL (32.0-37.0); MCV 90.9 fL (80.0-97.0); Mean Platelet Volume 10.8 fL (9.5-12.2); Monocytes % (A) 8.2 %; NRBC Per 100 WBC 0 /100 WBCS (0.0-0.0); Neutrophils # (A) 9.56 X 10*3/uL (1.80-7.70); Neutrophils % (A) 60.1 %; Platelet Count 641 X 10*3/uL (140-440); RBC 3.97 X 10*6/uL (4.40-5.60); RDW 16.4 % (11.5-14.5); WBC 15.92 X 10*3/uL (4.50-10.00)
== END | disposition home or self-care (01) ==
LOC: LABWHC1 11:24
PROVIDERS: ATTEND Registered Nurse
DX: D72.829 Elevated white blood cell count, unspecified (principal)
CPT/HCPCS: 36415; 85025

== ENCOUNTER → 2022-09-24 | Outpatient (CLI) | payer MEDICARE ==
--- NOTE | 2022-09-26 00:35 | PE ---
EXAMINATION TYPE: PET CT fusion whole body DATE OF EXAM: 09/24/2022 CLINICAL INDICATION:Male, 76 years old with history of C50.221 MALIG NEOPLASM OF UPPER-INNER QUADRANT OF; TECHNIQUE: Following the intravenous administration of 12.9 mCi of F-18 FDG, whole body images are performed from the skull base to the midthigh. Images are reviewed on the computer in the coronal, a xial, and sagittal planes. Reconstructed rotating images are created on independent workstation and reviewed on the computer. A non-contrast CT is performed in conjunction with the PET scan. Glucose level 146 mg/dL COMPARISON: CT 08/22/2022 06/04/2022, PET/CT None, FINDINGS: Mediastinal SUV mean is 1.6. Hepatic parenchyma SUV mean is 2.9. SKULL BASE AND NECK: No suspicious radiotracer activity. CHEST, MEDIASTINUM, AND HILAR REGION: No suspicious radiotracer activity. Postbiopsy changes with few foci of gas in the right axilla and right just wall/breast. Increased rad iotracer uptake within the right chest wall surgical bed more laterally max SUV 4.7 and max SUV 3.0 m ore medially. Overall findings are nonspecific given evidence of recent surgery. Surgical clips are p resent. Right lower lobe 5 mm pulmonary nodule stable from 06/04/2022. ABDOMEN AND PELVIS: No suspicious radiotracer activity. Left anterior abdominal wall fat stranding covering an area approximately 6.0 x 2.1 cm Max SUV 2.2. OSSEOUS STRUCTURES: No suspicious radiotracer activity. Mild degeneration changes of the right clavic le head max SUV 2.2. Degeneration changes of the shoulders. OTHER CT: Atherosclerosis of the arterial vasculature including the coronary arteries. Cholelithiasis . Surgical clips are seen in inferior margin of the liver. Colonic diverticulosis. Fat-containing um bilical hernia. Aneurysm clips with heterogeneous areas in the right hepatic lobe are unchanged. Surg ical changes to the prostate gland. IMPRESSION: 1. Increased radiotracer uptake along the surgical bed of the right axilla and right chest wall. Ove rall findings are nonspecific and could represent postsurgical inflammation. Attention on follow-up P ET/CT. No abnormal FDG activity within the head, neck, abdomen or pelvis. 2. Left anterior abdominal wall inflammation changes, correlate for cellulitis. 3. Stable right lower lobe 5 mm pulmonary nodule back to 06/22/2022., This is under the sensitivity f or PET/CT.
== END | disposition home or self-care (01) ==
LOC: RADPETMAIN 15:11
PROVIDERS: ATTEND Internal Medicine Hematology & Oncology
DX: C50.221 Malignant neoplasm of upper-inner quadrant of right male breast (principal); R91.1 Solitary pulmonary nodule; R19.09 Other intra-abdominal and pelvic swelling, mass and lump
CPT/HCPCS: 78816; A9552

== ENCOUNTER 2022-11-24 04:43 | Observation (INO) | payer MEDICARE ==
[2022-11-24] MEDS ORDERED: SODIUM CHLORIDE 0.9% 1,000 ML IV ONE (04:46)
[2022-11-24] MEDS ORDERED: DILTIAZEM 5 MG/ML 5 ML VIAL IVP STA (04:46)
--- NOTE | 2022-11-24 04:58 | ED ---
General Adult HPI - General Stated complaint: Abd Pain Time Seen by Provider: 11/24/22 04:45 - History of Present Illness Initial comments: This is a 76-year-old male who presents emergency department via EMS for initially complaining of throat pain, nausea and vomiting. The patient does have an extensive past medical history including previous atrial fibrillation fibrillation on Eliquis, undergoing current chemotherapy for "some sort of cancer", diabetes, hypertension. The patient stated that he has not been able to keep any down the last 3 days and has had increasing nausea and vomiting. The patient stated that he has not felt as if his heart was racing but stated that he was just recently admitted and diagnosed with atrial fibrillation fibr illation. The patient was however resting in bed comfortably tachycardic and complaining of mild nausea. The patient was given Zofran by EMS prior to arrival. The patient denied any other acute pain or complaints at this time. The patient stated his last chemotherapy dose was one week ago. - Related Data Home Medications Medication Instructions Recorded Confirmed Atorvastatin [Lipitor] 40 mg PO DAILY 06/04/21 11/02/22 Insulin NPH Hum/Reg Insulin Hm 0 - 50 unit SQ BID PRN 11/02/22 11/02/22 [Novolin 70-30 100 Unit/ml Vial] Ondansetron [Zofran] 4 mg PO Q6H PRN 11/02/22 11/02/22 lisinopriL [Zestril] 2.5 mg PO DAILY 11/02/22 11/02/22 Previous Rx's Medication Instructions Recorded Acetaminophen Tab [Tylenol] 650 mg PO Q4H PRN #30 tablet 09/02/22 Apixaban [Eliquis] 5 mg PO BID #60 tab 11/06/22 Calcium Carbonate [Tums] 500 mg PO TID PRN #30 tab 11/06/22 Clopidogrel [Plavix] 75 mg PO DAILY #30 tab 11/06/22 Metoprolol Succinate (ER) [Toprol 75 mg PO DAILY 30 Days #30 tab 11/06/22 XL] Nitroglycerin Sl Tabs [Nitrostat] 0.4 mg SUBLINGUAL Q5M PRN #30 tab 11/06/22 Amoxic-Pot Clav 875-125Mg 1 tab PO BID 7 Days #14 tab 11/07/22 [Augmentin 875-125] Allergies Allergy/AdvReac Type Severity Reaction Status Date / Time No Known Allergies Allergy Verified 11/02/22 22:25 Review of Systems ROS Statement: Those systems with pertinent positive or pertinent negative responses have been documented in the HPI. ROS Other: All systems not noted in ROS Statement are negative. Past Medical History Past Medical History: Cancer, Diabetes Mellitus, GERD/Reflux, Hyperlipidemia, Hypertension, Osteoarthritis (OA) Additional Past Medical History / Comment(s): SPLEEN CA-2005.. Hx of pancreatitis 2021 History of Any Multi-Drug Resistant Organisms: None Reported Past Surgical History: Orthopedic Surgery Additional Past Surgical History / Comment(s): TOTAL Ryland KNEE. RYLAND SHOULDER rotator cuff surgery. RYLAND carpal tunnel. RT GREAT TOE. SPLENECTOMY. Past Anesthesia/Blood Transfusion Reactions: Postoperative Nausea & Vomiting (PONV) Past Psychological History: No Psychological Hx Reported Smoking Status: Never smoker Past Alcohol Use History: None Reported Past Drug Use History: None Reported - Past Family History Brother(s) Family Medical History: Cancer Additional Family Medical History / Comment(s): father with questionable history of Chuy's disease, brother had leukiema Mother Family Medical History: Deep Vein Thrombosis (DVT) General Exam Limitations: no limitations General appearance: alert, in no apparent distress, obese Head exam: Present: atraumatic, normocephalic, normal inspection Eye exam: Present: normal appearance, PERRL Pupils: Present: normal accommodation ENT exam: Present: normal exam, normal oropharynx, mucous membranes moist Neck exam: Present: normal inspection, full ROM Respiratory exam: Present: normal lung sounds bilaterally Cardiovascular Exam: Present: tachycardia, irregular rhythm GI/Abdominal exam: Present: soft, normal bowel sounds Extremities exam: Present: normal inspection, full ROM Back exam: Present: normal inspection, full ROM Neurological exam: Present: alert, oriented X3, CN II-XII intact Psychiatric exam: Present: normal affect, normal mood Skin exam: Present: warm, dry Course Vital Signs 11/24/22 11/24/22 11/24/22 04:45 04:54 05:44 Temperature 97.1 F L Pulse Rate 149 H 131 H Respiratory 20 18 Rate Blood Pressure 135/94 146/99 O2 Sat by Pulse 99 96 Oximetry EKG Findings - EKG Comments: EKG Findings:: In EKG was obtained and was interpreted by myself showing a rate of 139, QRS duration of 101, QTC of 406. This EKG showed an atrial fibrillation with RVR. The patient does have a past medical history including atrial fibrillation with RVR. There was no ST segment elevation or depression noted. Medical Decision Making - Medical Decision Making Was pt. sent in by a medical professional or institution (RAMIRE[facility] Shin, KNIFE EDGER, urgent care, hospital, or [facility]...) When possible be specific @ -No Did you speak to anyone other than the patient for history (EMS, parent, family, police, friend...)? What history was obtained from this source @ -No Did you review nursing and triage notes (agree or disagree)? Why? @ -I reviewed and agree with nursing and triage notes Were old charts reviewed (outside hosp., previous admission, EMS record, old E KG, old radiological studies, urgent care reports/EKG's, [facility] records)? Report findings @ -No old charts were reviewed Differential Diagnosis (chest pain, altered mental status, abdominal pain women, abdominal pain men, vaginal bleeding, weakness, fever, dyspnea, syncope, headache, dizziness, GI bleed, back pain, seizure, CVA, palpatations, mental hea lth)? @ -Atrial fibrillation with RVR, ACS, gastroenteritis EKG interpreted by me (3pts min.). @ -As above X-rays interpreted by me (1pt min.). @ -Chest x-ray was obtained and was interpreted by myself showing no acute process. CT interpreted by me (1pt min.). @ -None done U/S interpreted by me (1pt. min.). @ -None done What testing was considered but not performed or refused? (CT, X-rays, U/S, labs)? Why? @ -None What meds were considered but not given or refused? Why? @ -None Did you discuss the management of the patient with other professionals (professionals i.e. RAMIREZ Shin, KNIFE EDGER, lab, RT, psych nurse, social service technician, strategy manager, t eacher, classification officer, porter sample case)? Give summary @ -Yes, admitting team, Siria Gomez Was smoking cessation discussed for >3mins.? @ -No Was critical care preformed (if so, how long)? @ -Yes, see above Were there social determinants of health that impacted care today? How? (Homeles sness, low income, unemployed, alcoholism, drug addiction, transportation, low edu. Level, literacy, decrease access to med. care, fdc, rehab)? @ -No Was there de-escalation of care discussed even if they declined (Discuss DNR or withdrawal of care, Hospice)? DNR status @ -No What co-morbidities impacted this encounter? (DM, HTN, Smoking, COPD, CAD, Cancer, CVA, ARF, Chemo, Hep., AIDS, mental health diagnosis, sleep apnea, morbid obesity)? @ -Cancer on chemotherapy, hypertension and atrial fibrillation on Eliquis Was patient admitted / discharged? Hospital course, mention meds given and route, prescriptions, significant lab abnormalities, going to OR and other pertinent info. @ -The patient was seen and evaluated in the emergency department. Physical exam, the patient was resting in bed however vital signs showed tachycardia with an irregular rhythm. The patient was found to be in atrial fibrillation with RVR. The patient was seen in the trauma resuscitation bay. The patient remained stable and had some minor nausea and vomiting. The patient was given Zofran prior to arrival by EMS. Laboratory workup was within normal limits and chest x-ray was negative. The patient was started on Cardizem as a bolus as well as a drip. The patient remained stable and will be admitted. The patient's primary care physician was being covered by EMS and Siria Gomez was contacted and accepted the patient for admission. The patient was agreeable to this plan and was admitted in stable condition. Undiagnosed new problem with uncertain prognosis? @ -No Drug Therapy requiring intensive monitoring for toxicity (Heparin, Nitro, Insulin, Cardizem)? @ -Cardizem Were any procedures done? @ -No Diagnosis/symptom? @ -Atrial fibrillation with RVR Acute, or Chronic, or Acute on Chronic? @ -Acute Uncomplicated (without systemic symptoms) or Complicated (systemic symptoms)? @ -Complicated Side effects of treatment? @ -No Exacerbation, Progression, or Severe Exacerbation? @ -No Poses a threat to life or bodily function? How? (Chest pain, USA, MA, pneumonia, PE, COPD, DKA, ARF, appy, cholecystitis, CVA, Diverticulitis, Homicidal, Riggins icidal, threat to staff... and all critical care pts) @ -Yes, atrial fibrillation with RVR can lead to increased demand on the heart causing ischemia and possible significant symptoms. - Lab Data Result diagrams: 11/24/22 04:46 Lab Results 11/24/22 Range/Units 04:46 WBC 9.9 (3.8-10.6) k/uL RBC 4.51 (4.30-5.90) m/uL Hgb 12.1 L (13.0-17.5) gm/dL Hct 37.3 L (39.0-53.0) % MCV 82.7 (80.0-100.0) fL MCH 26.8 (25.0-35.0) pg MCHC 32.3 (31.0-37.0) g/dL RDW 16.6 H (11.5-15.5) % Plt Count 300 (150-450) k/uL MPV 10.8 Anisocytosis Slight Critical Care Time Critical Care Time: Yes Total Critical Care Time: 38 Disposition Clinical Impression: Atrial fibrillation with RVR Disposition: ADMITTED IP TO THIS [facility] Condition: Stable Is patient prescribed a controlled substance at d/c from ED?: No Referrals: Annika Osman MD [Primary Care Provider] - 1-2 days Time of Disposition: 05:30 Decision to Admit Reason: Admit from EC Decision Date: 11/24/22 Decision Time: 05:30
[2022-11-24] MEDS ORDERED: DILTIAZEM 125 MG in SODIUM CHLORIDE 0.9% 100 ML IV SCH ×6 (05:00→21:15)
--- NOTE | 2022-11-24 05:22 | XR ---
EXAMINATION TYPE: XR chest 2V DATE OF EXAM: 11/24/2022 COMPARISON: 11/05/2022 HISTORY: Chest pain TECHNIQUE: FINDINGS: There is no heart failure nor confluent pneumonic infiltrate. Costophrenic angles are clear . There are no hilar masses. There are chest leads. Bony thorax is intact. IMPRESSION: No active cardiopulmonary disease. Inspiration slightly decreased compared to last exam.
[2022-11-24 05:43] LABS: Anisocytosis Slight; HCT 37.3 % (39.0-53.0); HGB 12.1 gm/dL (13.0-17.5); MCH 26.8 pg (25.0-35.0); MCHC 32.3 g/dL (31.0-37.0); MCV 82.7 fL (80.0-100.0); Mean Platelet Volume 10.8; Platelet Count 300 k/uL (150-450); RBC 4.51 m/uL (4.30-5.90); RDW 16.6 % (11.5-15.5); WBC 9.9 k/uL (3.8-10.6)
[2022-11-24 05:49] LABS: ALT 36 U/L (4-49); African American GFR (CKD) >90 (>60 ml/min/1.73 sqM); Albumin 2.2 g/dL (3.5-5.0); Anion Gap 6 mmol/L; Blood Urea Nitrogen 21 mg/dL (9-20); Calcium 7.4 mg/dL (8.4-10.2); Carbon Dioxide 25 mmol/L (22-30); Chloride 105 mmol/L (98-107); Glucose 212 mg/dL (74-99); Non-African American GFR(CKD) 86 (>60 ml/min/1.73 sqM); Sodium 136 mmol/L (137-145); Total Bilirubin 1.1 mg/dL (0.2-1.3); Total Protein 4.6 g/dL (6.3-8.2)
[2022-11-24 05:52] LABS: INR 1.2 (<1.2); Partial Thromboplastin Time 29.8 sec (22.0-30.0)
[2022-11-24] MEDS ORDERED: ONDANSETRON 4 MG/2 ML VIAL IVP PRN (06:07)
[2022-11-24] MEDS ORDERED: NALOXONE 0.4 MG/ML 1 ML VIAL IV PRN (06:07)
[2022-11-24] MEDS ORDERED: METOCLOPRAMIDE 5 MG/ML 2 ML VIAL IVP STA (06:21)
[2022-11-24] MEDS ORDERED: FUROSEMIDE 10 MG/ML 4 ML VIAL IV STA (06:35)
[2022-11-24 06:45] LABS: AST 46 U/L (17-59); Alkaline Phosphatase 386 U/L (38-126); Magnesium 1.7 mg/dL (1.6-2.3); Potassium 4.1 mmol/L (3.5-5.1)
[2022-11-24 07:52] LABS: Band Neutrophils % 4 %; Lymphocytes # (M) 2.77 k/uL (1.0-4.8); Metamyelocytes % 1 %; Monocytes # (M) 1.29 k/uL (0-1.0); Neutrophils % (M) 55 %; Nucleated Red Blood Cells 0 /100 WBC (0-0); Total Cells Counted 200; Toxic Granulation Present
[2022-11-24 07:53] LABS: Crenated RBC Present; Large Platelets Present
[2022-11-24] MEDS ORDERED: ACETAMINOPHEN TAB 325 MG TAB PO PRN (08:48)
[2022-11-24] MEDS ORDERED: NON FORMULARY DRUG (Insulin Nph Hum/Reg Insulin Hm [Novolin 70-30 100 Unit/Ml Vial] 100 UN SQ PRN (08:48)
[2022-11-24] MEDS ORDERED: NITROGLYCERIN SL TABS 0.4 MG TAB SUBLINGUAL PRN (08:48)
--- NOTE | 2022-11-24 09:31 | P.HPIM ---
History of Present Illness Patient came in with compensative nausea vomiting diarrhea found to be in atrial fibrillation with rapid ventricular rate patient does have history of A. fib and is on anti-coagulation with eliquis. Patient nausea improved but still having diarrhea. Patient has mildly elevated troponins of 0.123 patient previous echo cardiac exam showed EF of around 40% patient is was not on any diuretics at home. Was given a dose of Lasix here patient BNP is around 5000 chest x-ray did not show any pulmonary edema or pneumonia. Patient doesn't have any fever or leukocytosis. Patient denied any palpitations or chest pain. Patient is pre sently on Cardizem. REVIEW OF SYSTEMS: CONSTITUTIONAL: No fever, no malaise, no fatigue. HEENT: No recent visual problems or hearing problems. Denied any sore throat. CARDIOVASCULAR: No chest pain, orthopnea, PND, no palpitations, no syncope. PULMONARY: No shortness of breath, no cough, no hemoptysis. GASTROINTESTINAL:no abdominal pain. NEUROLOGICAL: No headaches, no weakness, no numbness. HEMATOLOGICAL: Denies any bleeding or petechiae. GENITOURINARY: Denies any burning micturition, frequency, or urgency. MUSCULOSKELETAL/RHEUMATOLOGICAL: Denies any joint pain, swelling, or any muscle pain. ENDOCRINE: Denies any polyuria or polydipsia. The rest of the 14-point review of systems is negative. PHYSICAL EXAMINATION: GENERAL: The patient is alert and oriented x3, not in any acute distress. Well developed, well nourished. HEENT: Pupils are round and equally reacting to light. EOMI. No scleral icterus. No conjunctival pallor. Normocephalic, atraumatic. No pharyngeal erythema. No thyromegaly. CARDIOVASCULAR: S1 and S2 present. No murmurs, rubs, or gallops. Tachycardic irregularly irregular PULMONARY: Chest is clear to auscultation, no wheezing or crackles. ABDOMEN: Soft, nontender, nondistended, normoactive bowel sounds. No palpable organomegaly. MUSCULOSKELETAL: No joint swelling or deformity. EXTREMITIES: No cyanosis, clubbing, or pedal edema. NEUROLOGICAL: Gross neurological examination did not reveal any focal deficits. SKIN: No rashes. Assessment and plan -Vital gastroenteritis: Supportive care -Atrial fibrillation with rapid and regular rate: Patient's metoprolol dose will be increased and will slowly wean him as Cardizem off, patient does have heart failure. Patient is on anti-correlation which will be continued -. Heart failure chronic systolic dysfunction without any acute exacerbation -Type 2 diabetes mellitus: With mildly elevated blood sugars, patient will be started on home regimen along with sliding scale insulin -Troponin elevation secondary to atrial fibrillation -Hypomagnesemia magnesium will be replaced -Gastroesophageal reflux disease -Hypertension -Hyperlipidemia DVT prophylaxis: Patient is on anti-correlation as mentioned above Past Medical History Past Medical History: Cancer, Diabetes Mellitus, GERD/Reflux, Hyperlipidemia, Hypertension, Osteoarthritis (OA) Additional Past Medical History / Comment(s): SPLEEN CA-2005.. Hx of pancreatitis 2021 History of Any Multi-Drug Resistant Organisms: None Reported Past Surgical History: Orthopedic Surgery Additional Past Surgical History / Comment(s): TOTAL Sejal KNEE. SEJAL SHOULDER rotator cuff surgery. SEJAL carpal tunnel. RT GREAT TOE. SPLENECTOMY. Past Anesthesia/Blood Transfusion Reactions: Postoperative Nausea & Vomiting (PONV) Past Psychological History: No Psychological Hx Reported Smoking Status: Never smoker Past Alcohol Use History: None Reported Past Drug Use History: None Reported - Past Family History Brother(s) Family Medical History: Cancer Additional Family Medical History / Comment(s): father with questionable history of Austin's disease, brother had leukiema Mother Family Medical History: Deep Vein Thrombosis (DVT) Medications and Allergies Home Medications Medication Instructions Recorded Confirmed Type Atorvastatin [Lipitor] 40 mg PO DAILY 06/04/21 11/24/22 History Acetaminophen Tab [Tylenol] 650 mg PO Q4H PRN #30 tablet 09/02/22 11/24/22 Rx Insulin NPH Hum/Reg Insulin Hm 0 - 50 unit SQ BID PRN 11/02/22 11/24/22 History [Novolin 70-30 100 Unit/ml Vial] Ondansetron [Zofran] 8 mg PO Q6H PRN 11/02/22 11/24/22 History Apixaban [Eliquis] 5 mg PO BID #60 tab 11/06/22 11/24/22 Rx Calcium Carbonate [Tums] 500 mg PO TID PRN #30 tab 11/06/22 11/24/22 Rx Clopidogrel [Plavix] 75 mg PO DAILY #30 tab 11/06/22 11/24/22 Rx Metoprolol Succinate (ER) [Toprol 75 mg PO DAILY 30 Days #30 tab 11/06/22 11/24/22 Rx XL] Nitroglycerin Sl Tabs [Nitrostat] 0.4 mg SUBLINGUAL Q5M PRN #30 tab 11/06/22 11/24/22 Rx lisinopriL [Prinivil] 10 mg PO DAILY 11/24/22 11/24/22 History Allergies Allergy/AdvReac Type Severity Reaction Status Date / Time No Known Allergies Allergy Verified 11/24/22 08:14 Physical Exam Vitals: Vital Signs Temp Pulse Resp BP Pulse Ox 11/24/22 05:44 131 H 18 146/99 96 11/24/22 04:54 135/94 11/24/22 04:45 97.1 F L 149 H 20 99 Intake and Output 11/23/22 11/24/22 11/24/22 22:59 06:59 14:59 Intake Total 25 Balance 25 Intake: Intake, IV Titration 25 Amount Diltiazem 125 mg In 25 Sodium Chloride 0.9% 100 ml @ 10 MG/HR 10 mls/hr IV .[id number] [facility] [place] Rx#: [id number] Other: Weight 104.326 kg Results CBC & Chem 7: 11/24/22 04:46 11/24/22 04:46 Labs: Abnormal Lab Results - Last 24 Hours (Table) 11/24/22 11/24/22 11/24/22 Range/Units 04:46 04:46 04:46 Hgb 12.1 L (13.0-17.5) gm/dL Hct 37.3 L (39.0-53.0) % RDW 16.6 H (11.5-15.5) % Monocytes # (Manual) 1.29 H (0-1.0) k/uL Metamyelocytes # (Man) 0.10 H (0) k/uL INR 1.2 H (<1.2) Sodium 136 L (137-145) mmol/L BUN 21 H (9-20) mg/dL Glucose 212 H (74-99) mg/dL Calcium 7.4 L (8.4-10.2) mg/dL Alkaline Phosphatase 386 H (38-126) U/L Troponin I (0.000-0.034) ng/mL Total Protein 4.6 L (6.3-8.2) g/dL Albumin 2.2 L (3.5-5.0) g/dL 11/24/22 Range/Units 04:46 Hgb (13.0-17.5) gm/dL Hct (39.0-53.0) % RDW (11.5-15.5) % Monocytes # (Manual) (0-1.0) k/uL Metamyelocytes # (Man) (0) k/uL INR (<1.2) Sodium (137-145) mmol/L BUN (9-20) mg/dL Glucose (74-99) mg/dL Calcium (8.4-10.2) mg/dL Alkaline Phosphatase (38-126) U/L Troponin I 0.123 H* (0.000-0.034) ng/mL Total Protein (6.3-8.2) g/dL Albumin (3.5-5.0) g/dL
[2022-11-24] MEDS: PANTOPRAZOLE 40 MG/10 ML VIAL IVP SCH (10:36)
[2022-11-24] MEDS: NYSTATIN 100,000 UNIT/ML SUSP 500,000 UNIT/5 ML CUP PO SCH ×3 (10:36→23:40)
[2022-11-24] MEDS: MAG HYDROX/AL HYDROX/SIMETH 30 ML, LIDOCAINE VISCOUS 2% 30 ML, diphenhydrAMINE ELIXIR 7... PO SCH ×12 (10:36→23:40)
[2022-11-24] MEDS: MAGNESIUM SULFATE-D5W PMX 1 GM in DEXTROSE/WATER 1 100ML.BAG IVPB SCH ×2 (10:36→11:40)
[2022-11-24] MEDS: lisinopriL 10 MG TAB PO SCH (10:36)
[2022-11-24] MEDS: APIXABAN 5 MG TAB PO SCH ×2 (10:36→20:40)
[2022-11-24] MEDS: METOPROLOL SUCCINATE (ER) 100 MG TAB.ER.24H PO SCH (10:36)
[2022-11-24] MEDS: ATORVASTATIN 40 MG TAB PO SCH (10:37)
[2022-11-24] MEDS: CLOPIDOGREL 75 MG TAB PO SCH (10:37)
[2022-11-24 17:02] LABS: Glucose,Whole Blood 244 mg/dL (70-110)
[2022-11-24] MEDS ORDERED: DEXTROSE 50% SYRINGE 50 ML IVP PRN ×4 (17:16→21:09)
--- NOTE | 2022-11-24 19:07 | CONS ---
CONSULTATION CHIEF COMPLAINT: Atrial fibrillation with rapid ventricular rate. HISTORY OF PRESENT ILLNESS: Mr. Coleman is a 76-year-old gentleman with history of some coronary artery disease, status post prior angioplasty; paroxysmal atrial fibrillation; insulin-requiring diabetes; and hypertension along with dyslipidemia, who presented to hospital primarily with symptoms of nausea and vomiting of 4 days' duration. He was seen by a success coach, who apparently has given him something for his nausea, but his symptoms persisted. He primarily came to the emergency room with these symptoms. He is currently receiving chemotherapy for metastatic male breast cancer and also has a mass in his liver, for which he may need surgery. At the time of my evaluation, he appears comfortable at rest. Nausea has improved but has had vomitings earlier. He is in atrial fibrillation with poorly-controlled ventricular rate. The patient is currently on intravenous Cardizem drip at 10 mg/hour. I will increase it to 15. He is continuing his home dose of Eliquis. The patient is already on beta-blockers. The patient has known coronary artery disease and underwent angioplasty with stent placement of LAD on 3rd of this month. His cardiac catheterization revealed a totally- occluded right coronary artery, 100% distal circumflex coronary artery, and an 80% LAD stenosis, for which he underwent angioplasty. PAST MEDICAL HISTORY: Significant for: 1. Coronary artery disease, status post angioplasty. 2. Paroxysmal atrial fibrillation. 3. Metastatic male breast cancer. 4. Liver mass. 5. Hypertension. 6. Dyslipidemia along with diabetes. CURRENT MEDICATIONS: At home include: 1. Prinivil 10 daily. 2. Zofran. 3. Insulin. 4. Lipitor 40 daily. 5. Toprol-XL 75 daily. 6. Plavix 75 daily. 7. Eliquis 5 b.i.d. ALLERGIES: There are no known drug allergies. FAMILY HISTORY: Negative for premature coronary artery disease. SOCIAL HISTORY: Negative for current smoking, EtOH abuse, or drug abuse. REVIEW OF SYSTEMS: 14 out of 14 review of systems has been performed. Pertinents are as documented in history of presenting illness. PHYSICAL EXAMINATION: VITAL SIGNS: The patient is afebrile, heart rate is 130 beats per minute, blood pressure is 146/99, respiratory rate is 18, O2 saturation is 96% on room air. NECK: There is no jugular venous distention. Carotid upstroke is normal. There is no bruit. CHEST: Reveals good air entry bilaterally. HEART: Reveals first and second heart sounds. No gallop. No murmur. No rub. ABDOMEN: Soft and nontender. EXTREMITIES: Did not reveal any edema. Peripheral pulses are felt. LABORATORY DATA: Labs show a hemoglobin of 12.1, platelet count is 300. Potassium is 4.1, creatinine is 0.8. Troponin is 0.1, and BNP is 5950. Coronavirus test is negative. ASSESSMENT: 1. Persistent atrial fibrillation with poorly-controlled ventricular rate. 2. Coronary artery disease, status post recent angioplasty of left anterior descending. 3. Elevated BNP of unclear clinical significance in a patient without symptoms of congestive heart failure. PLAN: I will continue the Eliquis, Plavix, Toprol, Prinivil, and Lipitor. He is on Cardizem. We will adjust the doses as needed. I will obtain a 2D echo on him. MMODL / IJN: [id number] /
[2022-11-24] MEDS ORDERED: guaiFENesin-DM 100-10MG/5ML 10 ML CUP PO PRN (21:10)
[2022-11-24 21:34] LABS: Glucose,Whole Blood 274 mg/dL (70-110)
[2022-11-24] MEDS: INSULIN ASPART (NovoLOG) 100 UNIT/ML VIAL SQ SCH ×2 (21:38→21:40)
[2022-11-25 04:49] LABS: Anisocytosis Slight; HCT 34.9 % (39.0-53.0); MCH 26.2 pg (25.0-35.0); MCHC 31.4 g/dL (31.0-37.0); MCV 83.4 fL (80.0-100.0); Mean Platelet Volume 10.5; Platelet Count 310 k/uL (150-450); RBC 4.18 m/uL (4.30-5.90); RDW 17.1 % (11.5-15.5)
[2022-11-25 05:05] LABS: African American GFR (CKD) >90 (>60 ml/min/1.73 sqM); Anion Gap 3 mmol/L; Blood Urea Nitrogen 28 mg/dL (9-20); Calcium 7.1 mg/dL (8.4-10.2); Carbon Dioxide 25 mmol/L (22-30); Chloride 107 mmol/L (98-107); Glucose 214 mg/dL (74-99); Non-African American GFR(CKD) 81 (>60 ml/min/1.73 sqM); Potassium 3.5 mmol/L (3.5-5.1); Sodium 135 mmol/L (137-145)
[2022-11-25 06:47] LABS: Glucose,Whole Blood 197 mg/dL (70-110)
[2022-11-25] MEDS ORDERED: INSULIN ASPART (NovoLOG) 100 UNIT/ML VIAL SQ SCH (07:30)
[2022-11-25 07:47] LABS: Glucose,Whole Blood 210 mg/dL (70-110)
--- NOTE | 2022-11-25 07:51 | CA ---
Transthoracic Echo Report Name: Duane Coleman Age: 76 Gender: M : 1945 Exam Date: 11/24/2022 10:41 Exam Location: [place] [facility] Ht (in): 70 Wt (lb): 230 Ordering Physician: Kashmir Harris MD ([id number]) Attending/Referring Phys: Steven ACKERMAN Weighing Station Operator Mary Ordoñez RDCS Procedure CPT: Indications: afib rvr Cardiac Hx: Technical Quality: Fair Contrast 1: Total Dose (mL): Contrast 2: Total Dose (mL): MEASUREMENTS (Male / Female) Normal Values 2D ECHO LV Diastolic Volume MOD 4C 102.7 cm??? LV Systolic Volume MOD 4C 58.8 cm??? LV Ejection Fraction MOD 4C 42.7 % LV Diastolic Length 4C 6.9 cm LV Systolic Length 4C 6.3 cm LA Volume 72.7 cm??? 18 - 58 / 22 - 52 cm??? M-MODE Aortic Root Diameter MM 3.1 cm LA Systolic Diameter MM 4.5 cm LA Ao Ratio MM 1.4 MV E Point Septal Separation 0.9 cm AV Cusp Separation MM 1.9 cm DOPPLER AV Peak Velocity 124.0 cm/s AV Peak Gradient 6.2 mmHg AI Peak Velocity 355.3 cm/s AI Peak Gradient 50.5 mmHg AI Pressure Half Time 649.9 ms LVOT Peak Velocity 116.5 cm/s LVOT Peak Gradient 5.4 mmHg MV Area PHT 3.3 cm??? MR Peak Velocity 195.5 cm/s MR Peak Gradient 15.3 mmHg Mitral E Point Velocity 69.0 cm/s Mitral A Point Velocity 90.6 cm/s Mitral E to A Ratio 0.8 MV Deceleration Time 233.3 ms TR Peak Velocity 214.5 cm/s TR Peak Gradient 18.4 mmHg Right Atrial Pressure 8.0 mmHg Pulmonary Artery Systolic Pressu 26.4 mmHg Right Ventricular Systolic Press 26.4 mmHg FINDINGS Left Ventricle Left ventricular cavity size normal. Left ventricular wall thickness normal. Left ventricular ejection fraction is estimated at 45 %. Grade 1 diastolic dysfunction. Possible inferolateral mild hypokinesia Right Ventricle Normal right ventricular size. Right ventricular systolic pressure within normal limits. Normal right ventricular global systolic function. Right Atrium Normal right atrial size. Left Atrium Moderately increased left atrial volume. Mitral Valve Structurally normal mitral valve. No mitral regurgitation. No mitral stenosis. Aortic Valve Trileaflet aortic valve. Thickened aortic valve without stenosis. Mild aortic regurgitation. Tricuspid Valve Structurally normal tricuspid valve. Mild tricuspid regurgitation. Pulmonic Valve Structurally normal pulmonic valve. No pulmonic regurgitation. Pericardium Normal pericardium. No pleural effusion. No pericardial effusion. Aorta Normal size aortic root and proximal ascending aorta. CONCLUSIONS Patient is tachycardic ejection fraction is about 45% with the global decrease in contractility probably more so and inferolateral wall area did mild mitral aortic and tricuspid insufficiency no significant pulmonary hypertension. No pericardial effusion Previewed by: Dr. Felix Khoury MD (Electronically Signed) Final Date: 25 November 2022 07:51
[2022-11-25] MEDS: INSULIN ASPART (NovoLOG) 100 UNIT/ML VIAL SQ SCH ×4 (08:16→21:41)
[2022-11-25] MEDS: METOPROLOL SUCCINATE (ER) 100 MG TAB.ER.24H PO SCH (08:17)
[2022-11-25] MEDS: ATORVASTATIN 40 MG TAB PO SCH (08:17)
[2022-11-25] MEDS: CLOPIDOGREL 75 MG TAB PO SCH (08:17)
[2022-11-25] MEDS: APIXABAN 5 MG TAB PO SCH ×2 (08:18→21:41)
[2022-11-25] MEDS: lisinopriL 10 MG TAB PO SCH (08:18)
[2022-11-25] MEDS: PANTOPRAZOLE 40 MG/10 ML VIAL IVP SCH (08:19)
[2022-11-25] MEDS: MAG HYDROX/AL HYDROX/SIMETH 30 ML, LIDOCAINE VISCOUS 2% 30 ML, diphenhydrAMINE ELIXIR 7... PO SCH ×12 (08:53→21:42)
[2022-11-25] MEDS: DILTIAZEM ORAL 30 MG TAB PO SCH ×5 (08:54→21:41)
[2022-11-25] MEDS: NYSTATIN 100,000 UNIT/ML SUSP 500,000 UNIT/5 ML CUP PO SCH (09:01)
[2022-11-25 11:31] LABS: Glucose,Whole Blood 246 mg/dL (70-110)
--- NOTE | 2022-11-25 14:38 | P.PN ---
Subjective Progress Note Date: 11/25/22 Patient came in with compensative nausea vomiting diarrhea found to be in atrial fibrillation with rapid ventricular rate patient does have history of A. fib and is on anti-coagulation with eliquis. Patient nausea improved but still having diarrhea. Patient has mildly elevated troponins of 0.123 patient previous echo cardiac exam showed EF of around 40% patient is was not on any diuretics at home. Was given a dose of Lasix here patient BNP is around 5000 chest x-ray did not show any pulmonary edema or pneumonia. Patient doesn't have any fever or leukocytosis. Patient denied any palpitations or chest pain. Patient is presently on Cardizem. 11/25/2022 Patient is evaluated on stepdown unit. Patient and family express concern with patient having slurred speech and swallowing difficulties at home. He doesn't appear to have any oral thrush on assessment and has been maintained on oral cools solution with nystatin. Family is questioning stroke as patient has also had gait disturbances, he has been anticoagulated since 11/07/2022 when he was first diagnosed with atrial fibrillation. PT and speech therapy will be consulted at this time for further evaluation. Patient has been transitioned off the cardizem gtt and heart rate is now controlled in the 90s. Echocardiogram showing EF of 45%.Blood pressure 1267/1. He is afebrile. Review of Systems Constitutional: Denied any fatigue denied any fever. Cardio vascular: denied any chest pain, palpitations Gastrointestinal: denied any nausea, vomiting, diarrhea Pulmonary: Denied any shortness of breath cough Neurologic denied any new focal deficits All inpatient medications were reviewed and appropriate changes in these medications as dictated in the interval history and assessment and plan. PHYSICAL EXAMINATION: GENERAL: The patient is alert and oriented x3, not in any acute distress. Well developed, well nourished. HEENT: Pupils are round and equally reacting to light. EOMI. No scleral icterus. No conjunctival pallor. Normocephalic, atraumatic. No pharyngeal erythema. No thyromegaly. CARDIOVASCULAR: S1 and S2 present. No murmurs, rubs, or gallops. irregularly irregular PULMONARY: Chest is clear to auscultation, no wheezing or crackles. ABDOMEN: Soft, nontender, nondistended, normoactive bowel sounds. No palpable organomegaly. MUSCULOSKELETAL: No joint swelling or deformity. EXTREMITIES: No cyanosis, clubbing, or pedal edema. NEUROLOGICAL: Gross neurological examination did not reveal any focal deficits. SKIN: No rashes. Assessment and plan -Vital gastroenteritis: Supportive care -Atrial fibrillation with rapid ventricular rate has been weaned off IV cardizem and heart rate is presently controlled at this time -Heart failure chronic systolic dysfunction without any acute exacerbation -Leukocytosis -Type 2 diabetes mellitus: With mildly elevated blood sugars, patient will be started on home regimen along with sliding scale insulin -Troponin elevation secondary to atrial fibrillation -Hypomagnesemia magnesium will be replaced -History of coronary artery disease with prior PCI -Gastroesophageal reflux disease -Hypertension -Hyperlipidemia -Recent diagnosis of ductal carcinoma with right mastectomy -History of liver metastasis -History of spleen cancer with mastectomy DVT prophylaxis: Patient is anticoagulated GI prophyalxis Full Code Plan PT/OT speech therapy consultation Cardiology following and patients medications have been adjusted Repeat CBC in AM Possible D/C in the next 24 to 48 hours. The impression and plan of care has been dictated by Maribell Payne, Nurse Practitioner as directed. Dr. Petrona MD I have performed a history and physical examination and medical decision making of this patient, discussed the same with the dictator, and agree with the dictators assessment and plan as written, documented as a scribe. Based on total visit time, I have performed more than 50% of this visit. Objective - Vital Signs Vital signs: Vital Signs Temp 97.4 F L 11/25/22 11:11 Pulse 107 H 11/25/22 11:11 Resp 18 11/25/22 11:11 BP 106/67 11/25/22 11:11 Pulse Ox 97 11/25/22 11:11 FiO2 Intake & Output 11/24/22 11/25/22 11/25/22 18:59 06:59 18:59 Intake Total 25 12.083 Balance 25 12.083 Weight 104.326 kg Intake: Intake, IV Titration 25 12.083 Amount Diltiazem 125 mg In 25 Sodium Chloride 0.9% 100 ml @ 10 MG/HR 10 mls/hr IV .[id number] [facility] Rx#: [id number] Diltiazem 125 mg In 12.083 Sodium Chloride 0.9% 100 ml @ 5 MG/HR 5 mls/hr IV .Q24H [facility] Rx#:[id number] - Labs CBC & Chem 7: 11/25/22 04:26 11/25/22 04:26 Labs: Abnormal Lab Results - Last 24 Hours (Table) 11/24/22 11/24/22 11/25/22 Range/Units 17:00 21:31 04:26 WBC 25.0 H (3.8-10.6) k/uL RBC 4.18 L (4.30-5.90) m/uL Hgb 11.0 L (13.0-17.5) gm/dL Hct 34.9 L (39.0-53.0) % RDW 17.1 H (11.5-15.5) % Sodium (137-145) mmol/L BUN (9-20) mg/dL Glucose (74-99) mg/dL POC Glucose (mg/dL) 244 H 274 H (70-110) mg/dL Calcium (8.4-10.2) mg/dL 11/25/22 11/25/22 11/25/22 Range/Units 04:26 06:45 07:45 WBC (3.8-10.6) k/uL RBC (4.30-5.90) m/uL Hgb (13.0-17.5) gm/dL Hct (39.0-53.0) % RDW (11.5-15.5) % Sodium 135 L (137-145) mmol/L BUN 28 H (9-20) mg/dL Glucose 214 H (74-99) mg/dL POC Glucose (mg/dL) 197 H 210 H (70-110) mg/dL Calcium 7.1 L (8.4-10.2) mg/dL 11/25/22 Range/Units 11:29 WBC (3.8-10.6) k/uL RBC (4.30-5.90) m/uL Hgb (13.0-17.5) gm/dL Hct (39.0-53.0) % RDW (11.5-15.5) % Sodium (137-145) mmol/L BUN (9-20) mg/dL Glucose (74-99) mg/dL POC Glucose (mg/dL) 246 H (70-110) mg/dL Calcium (8.4-10.2) mg/dL Assessment and Plan Time with Patient: Less than 30
[2022-11-25 14:43] VITALS: BMI 31.1
[2022-11-25 16:34] LABS: Glucose,Whole Blood 257 mg/dL (70-110)
--- NOTE | 2022-11-25 19:41 | PN ---
PROGRESS NOTE SUBJECTIVE: Duane is a 76-year-old gentleman with history of breast cancer for which he was receiving chemotherapy, also has a mass in the liver, presented to hospital with nausea, vomiting, and atrial fibrillation with rapid ventricular rate for which we were consulted. The patient is feeling better today. His nausea and vomiting have improved. Remains in atrial fibrillation with still poorly controlled ventricular rate. He is on Eliquis 5 mg b.i.d., Lipitor, Plavix because of coronary artery disease and intravenous Cardizem, which will be stopped today and the patient will be started on oral Cardizem. He is already on Toprol-XL 100 mg daily. He is on lisinopril 10 mg daily. OBJECTIVE: VITAL SIGNS: Heart rate is around 110 to 120 beats per minute, blood pressure is 124/72, respiratory rate is 18, and O2 sat is 99% on room air. CHEST: Reveals good air entry bilaterally. HEART: Reveals first and second heart sounds. No gallop. Irregular rhythm. ABDOMEN: Soft. EXTREMITIES: Reveal 1+ edema. LABORATORY DATA: Show a potassium of 3.5, BUN is 28, creatinine is 0.9, hemoglobin is 7, white cell count is elevated at 25. ASSESSMENT: Persistent atrial fibrillation with poorly controlled ventricular rate. I am going to stop the IV Cardizem, switch him to oral Cardizem, continue the Toprol-XL. The patient hopefully can be discharged home tomorrow. MEE / MARISSA: [id number] /
[2022-11-25 21:04] LABS: Glucose,Whole Blood 238 mg/dL (70-110)
[2022-11-26 06:13] LABS: Glucose,Whole Blood 164 mg/dL (70-110)
[2022-11-26 06:30] LABS: Anisocytosis Slight; HCT 35.4 % (39.0-53.0); MCH 25.8 pg (25.0-35.0); MCHC 31.1 g/dL (31.0-37.0); MCV 82.8 fL (80.0-100.0); Mean Platelet Volume 10.3; Platelet Count 309 k/uL (150-450); RBC 4.28 m/uL (4.30-5.90); RDW 17.4 % (11.5-15.5)
[2022-11-26] MEDS: INSULIN ASPART (NovoLOG) 100 UNIT/ML VIAL SQ SCH ×4 (06:53→13:18)
[2022-11-26] MEDS ORDERED: INSULIN DETEMIR (LEVEMIR) 100 UNIT/ML SYR SQ SCH (07:00)
[2022-11-26 07:32] LABS: Calcium 7.4 mg/dL (8.4-10.2); Potassium 3.8 mmol/L (3.5-5.1)
[2022-11-26 08:20] VITALS: RESP 16; TEMP 97.7
[2022-11-26] MEDS: DILTIAZEM ORAL 30 MG TAB PO SCH (08:21)
[2022-11-26] MEDS: ATORVASTATIN 40 MG TAB PO SCH (08:21)
[2022-11-26] MEDS: CLOPIDOGREL 75 MG TAB PO SCH (08:21)
[2022-11-26] MEDS: MAG HYDROX/AL HYDROX/SIMETH 30 ML, LIDOCAINE VISCOUS 2% 30 ML, diphenhydrAMINE ELIXIR 7... PO SCH ×4 (08:22)
[2022-11-26] MEDS: PANTOPRAZOLE 40 MG/10 ML VIAL IVP SCH (08:22)
[2022-11-26] MEDS: APIXABAN 5 MG TAB PO SCH (08:22)
[2022-11-26] MEDS: METOPROLOL SUCCINATE (ER) 100 MG TAB.ER.24H PO SCH (08:22)
[2022-11-26] MEDS: lisinopriL 10 MG TAB PO SCH (08:22)
[2022-11-26 08:54] LABS: Band Neutrophils % 1 %; Lymphocytes # (M) 3.14 k/uL (1.0-4.8); Metamyelocytes # (M) 0.63 k/uL (0); Metamyelocytes % 2 %; Monocytes # (M) 1.57 k/uL (0-1.0); Myelocytes # (M) 0.31 k/uL (0); Myelocytes % 1 %; Neutrophils % (M) 82 %; Nucleated Red Blood Cells 4 /100 WBC (0-0); Total Cells Counted 200; WBC 31.4 k/uL (3.8-10.6)
[2022-11-26 09:11] LABS: Poikilocytosis (M) Present; Polychromasia Present
--- NOTE | 2022-11-26 11:28 | P.PN ---
Subjective Progress Note Date: 11/26/22 HISTORY OF PRESENT ILLNESS: This is a 76-year-old male who is a patient of Dr. Hylton. Patient is admitted to the hospital secondary to atrophic relation with RVR. Patient examined this morning at the bedside. Patient denies chest pain or pressure. He denies shortness of breath. Telemetry reveals atrial fibrillation in the 80s. Vital signs are stable. PHYSICAL EXAM: VITAL SIGNS: Reviewed. GENERAL: Well-developed in no acute distress. NECK: Supple. No JVD or thyromegaly LUNGS: Respirations even and unlabored. Lungs essentially clear to auscultation bilaterally. HEART: Irregular rate and rhythm. S1 and S2 heard. EXTREMITIES: Normal range of motion. No clubbing or cyanosis. Peripheral pulses intact. No lower extremity edema ASSESSMENT: Paroxysmal atrial fibrillation with RVR Coronary artery disease History of breast cancer PLAN: Continue current cardiac medications Patient is stable for discharge home today from a cardiac standpoint Patient to follow up outpatient with Dr. Hylton Nurse practitioner note has been reviewed by physician. Signing provider agrees with the documented findings, assessment, and plan of care. Objective - Vital Signs Vital signs: Vital Signs Temp 97.7 F 11/26/22 08:00 Pulse 89 11/26/22 08:00 Resp 16 11/26/22 08:00 BP 148/72 11/26/22 08:00 Pulse Ox 95 11/26/22 08:00 FiO2 Intake & Output 11/25/22 11/26/22 11/26/22 18:59 06:59 18:59 Intake Total 240 120 Output Total 0 Balance 240 120 Weight 104.326 kg Intake: Oral 240 120 Output: Urine 0 Stool 0 Urine/Stool Mix 0 Emesis 0 Oral Regurgitation 0 Other: Voiding Method Toilet Toilet # Voids 0 2 2 # Bowel Movements 0 - Labs CBC & Chem 7: 11/26/22 05:40 11/26/22 05:40 Labs: Abnormal Lab Results - Last 24 Hours (Table) 11/25/22 11/25/22 11/25/22 Range/Units 11:29 16:32 21:03 WBC (3.8-10.6) k/uL RBC (4.30-5.90) m/uL Hgb (13.0-17.5) gm/dL Hct (39.0-53.0) % RDW (11.5-15.5) % Neutrophils # (Manual) (1.3-7.7) k/uL Monocytes # (Manual) (0-1.0) k/uL Metamyelocytes # (Man) (0) k/uL Myelocytes # (Manual) (0) k/uL Nucleated RBCs (0-0) /100 WBC Sodium (137-145) mmol/L BUN (9-20) mg/dL Glucose (74-99) mg/dL POC Glucose (mg/dL) 246 H 257 H 238 H (70-110) mg/dL Hemoglobin A1c (0.0-6.0) % Calcium (8.4-10.2) mg/dL 11/26/22 11/26/22 11/26/22 Range/Units 05:40 05:40 05:40 WBC 31.4 H (3.8-10.6) k/uL RBC 4.28 L (4.30-5.90) m/uL Hgb 11.0 L (13.0-17.5) gm/dL Hct 35.4 L (39.0-53.0) % RDW 17.4 H (11.5-15.5) % Neutrophils # (Manual) 26.00 H (1.3-7.7) k/uL Monocytes # (Manual) 1.57 H (0-1.0) k/uL Metamyelocytes # (Man) 0.63 H (0) k/uL Myelocytes # (Manual) 0.31 H (0) k/uL Nucleated RBCs 4 H (0-0) /100 WBC Sodium 136 L (137-145) mmol/L BUN 31 H (9-20) mg/dL Glucose 158 H (74-99) mg/dL POC Glucose (mg/dL) (70-110) mg/dL Hemoglobin A1c 8.6 H (0.0-6.0) % Calcium 7.4 L (8.4-10.2) mg/dL 11/26/22 Range/Units 06:11 WBC (3.8-10.6) k/uL RBC (4.30-5.90) m/uL Hgb (13.0-17.5) gm/dL Hct (39.0-53.0) % RDW (11.5-15.5) % Neutrophils # (Manual) (1.3-7.7) k/uL Monocytes # (Manual) (0-1.0) k/uL Metamyelocytes # (Man) (0) k/uL Myelocytes # (Manual) (0) k/uL Nucleated RBCs (0-0) /100 WBC Sodium (137-145) mmol/L BUN (9-20) mg/dL Glucose (74-99) mg/dL POC Glucose (mg/dL) 164 H (70-110) mg/dL Hemoglobin A1c (0.0-6.0) % Calcium (8.4-10.2) mg/dL
[2022-11-26 11:40] LABS: Glucose,Whole Blood 172 mg/dL (70-110)
[2022-11-26 11:51] VITALS: BP 135/69; PULSE 69
--- NOTE | 2022-11-26 13:12 | CT ---
EXAMINATION TYPE: CT brain wo con DATE OF EXAM: 11/26/2022 COMPARISON: None INDICATION: Altered mental status DLP: 1158.7 mGycm, Automated exposure control for dose reduction was used. CONTRAST: None CT of the brain is performed utilizing 3 mm thick sections through the posterior fossa and 3 mm thick sections through the remaining calvarium. Study is performed within 24 hours of arrival to the hosp ital. No abnormal hyperdensity is present to suggest an acute intracranial hemorrhage. No mass lesion is evident. No acute infarcts are evident. Mild periventricular white matter hypodensity is present, likely on th e basis of chronic white matter ischemic changes. Ventricles and sulci are appropriate for the patient age. Paranasal sinuses and mastoid air cells within the [id number] are clear. IMPRESSIONS: 1. Mild chronic appearing periventricular white matter ischemic changes.
--- NOTE | 2022-11-27 06:47 | P.DS ---
Providers Date of admission: 11/24/22 06:11 Expected date of discharge: 11/26/22 Attending physician: Ambrosio Lowe Consults: 11/24/22 06:07 Consult Physician Routine Consulting Provider: [facility] Consult Reason/Comments: A fib with RVR Do you want consulting provider notified?: Yes, Notify in am Primary care physician: Annika Osman Hospital Course: Final diagnosis -Vital gastroenteritis, improved -Atrial fibrillation with rapid ventricular rate, presently controlled at this time -Heart failure chronic systolic dysfunction without any acute exacerbation -Leukocytosis, possibly reactive -Type 2 diabetes mellitus, insulin dependent, uncontrolled with hyperglycemia -Troponin elevation secondary to atrial fibrillation -Hypomagnesemia, improved -History of coronary artery disease with prior PCI -Gastroesophageal reflux disease -Hypertension -Hyperlipidemia -Recent diagnosis of ductal carcinoma with right mastectomy -History of liver metastasis -DVT prophylaxis: Patient is anticoagulated -GI prophyalxis -Full Code Discharge disposition Patient is being discharged in a stable condition with guarded prognosis to home. Patient will follow-up with Dr. Osman in the outpatient setting upon discharge. Patient is to also follow-up with oncology and cardiology outpatient as scheduled. Recommend repeat labs in the next few days and a prescription was provided. Total time taken is greater than 35 minutes. Hospital course This is a 76-year-old male who was recently admitted with some nausea vomiting diarrhea that has since resolved also found to be in atrial fibrillation with RVR. Patient has been anticoagulated and was evaluated by cardiology currently rate controlled. Patient has been cleared by cardiology. Patient evaluated by physical therapy reports doing well and okay to go home with family. Patient reports he would like to go home today. Please refer to other consultation notes for further HPI. Recommend repeat labs in the next few days and close follow-up with primary care provider this week. Currently no reports of chest pain, shortness of breath, or palpitations. Patient is afebrile. No reports of nausea or vomiting and patient is tolerating diet. Patient will be discharged home today. Guarded prognosis. Physical exam: Gen: This is a 76-year-old male who is awake, alert and oriented 3, well- developed, well-nourished, obese HEENT: Head is atraumatic, normocephalic. Pupils equal, round. Sclerae is anicteric. NECK: Supple. No JVD. No lymphadenopathy. No thyromegaly. LUNGS: Diminished breath sounds bilaterally with no wheezes or rhonchi. No intercostal retractions. HEART: S1, S2 are muffled, irregular ABDOMEN: Soft. Obese. Bowel sounds are present. No masses. No tenderness. EXTREMITIES: No pedal edema. No calf tenderness. NEUROLOGICAL: Patient is awake, alert and oriented x3. Cranial nerves 2 through 12 are grossly intact. Please refer to medication reconciliation sheet for a list of medications. The impression and plan of care has been dictated by Swapna Mason, Nurse Practitioner as directed. Dr. Mynor MD I have performed a history and examination and MDM of this patient, discussed the same with the dictator, and agree with the dictator's assessment and plan as written ,documented as a scribe. Based on total visit time, I have performed more than 50% of the visit. Patient Condition at Discharge: Stable Plan - Discharge Summary Discharge Rx Participant: No New Discharge Prescriptions: New Nystatin 100,000 Unit/ml Susp [Mycostatin Oral Susp] 3,000,000 unit PO TID 7 Days #105 ml Diltiazem Oral [Cardizem*] 30 mg PO TID 30 Days #90 tab Metoprolol Succinate (ER) [Toprol XL] 100 mg PO DAILY 30 Days #30 tab Continue Atorvastatin [Lipitor] 40 mg PO DAILY Apixaban [Eliquis] 5 mg PO BID #60 tab Nitroglycerin Sl Tabs [Nitrostat] 0.4 mg SUBLINGUAL Q5M PRN #30 tab PRN Reason: Chest Pain Clopidogrel [Plavix] 75 mg PO DAILY #30 tab Calcium Carbonate [Tums] 500 mg PO TID PRN #30 tab PRN Reason: Heartburn Acetaminophen Tab [Tylenol] 650 mg PO Q4H PRN #30 tablet PRN Reason: Pain Ondansetron [Zofran] 8 mg PO Q6H PRN PRN Reason: Nausea Insulin NPH Hum/Reg Insulin Hm [Novolin 70-30 100 Unit/ml Vial] 0 - 50 unit SQ BID PRN PRN Reason: HIGH BLOOD SUGAR lisinopriL [Prinivil] 10 mg PO DAILY Discontinued Metoprolol Succinate (ER) [Toprol XL] 75 mg PO DAILY 30 Days #30 tab Discharge Medication List Atorvastatin [Lipitor] 40 mg PO DAILY 06/04/21 [History] Acetaminophen Tab [Tylenol] 650 mg PO Q4H PRN #30 tablet 09/02/22 [Rx] Insulin NPH Hum/Reg Insulin Hm [Novolin 70-30 100 Unit/ml Vial] 0 - 50 unit SQ BID PRN 11/02/22 [History] Ondansetron [Zofran] 8 mg PO Q6H PRN 11/02/22 [History] Apixaban [Eliquis] 5 mg PO BID #60 tab 11/06/22 [Rx] Calcium Carbonate [Tums] 500 mg PO TID PRN #30 tab 11/06/22 [Rx] Clopidogrel [Plavix] 75 mg PO DAILY #30 tab 11/06/22 [Rx] Nitroglycerin Sl Tabs [Nitrostat] 0.4 mg SUBLINGUAL Q5M PRN #30 tab 11/06/22 [Rx] lisinopriL [Prinivil] 10 mg PO DAILY 11/24/22 [History] Diltiazem Oral [Cardizem*] 30 mg PO TID 30 Days #90 tab 11/26/22 [Rx] Metoprolol Succinate (ER) [Toprol XL] 100 mg PO DAILY 30 Days #30 tab 11/26/22 [Rx] Nystatin 100,000 Unit/ml Susp [Mycostatin Oral Susp] 3,000,000 unit PO TID 7 Days #105 ml 11/26/22 [Rx] Follow up Appointment(s)/Referral(s): Alberto Hylton DO [STAFF PHYSICIAN] - 12/06/22 2:45 pm (Tuesday. Previously scheduled appointment) Aninka Osman MD [Primary Care Provider] - 1-2 days (Office is closed. Please call to schedule appointment) Ambulatory/Diagnostic Orders: Complete Blood Count w/diff [LAB.AMB] Time Frame: 1 Week, Location: None Selected Patient Instructions/Handouts: A-fib (Atrial Fibrillation) (DC) Activity/Diet/Wound Care/Special Instructions: Activity Limited until follow-up Follow-up with primary care provider on discharge Follow-up with cardiology outpatient in 1-2 weeks Follow-up oncology Repeat labs in the next few days continue to monitor your blood sugars closely and keep a diary of all readings and bring with you to follow-up appointments Discharge Disposition: HOME SELF-CARE
== END 2022-11-26 13:21 | disposition home or self-care (01) ==
LOC: EC 04:43 → INTOOBSV 06:11 → 3SCARD 06:11 → UNDODISIN 11-26 13:21
PROVIDERS: ADMIT Hospitalist; ATTEND Hospitalist
DX: K52.9 Noninfective gastroenteritis and colitis, unspecified (principal); I48.0 Paroxysmal atrial fibrillation; E83.42 Hypomagnesemia; C50.929 Malignant neoplasm of unspecified site of unspecified male breast; C78.7 Secondary malignant neoplasm of liver and intrahepatic bile duct; I25.10 Atherosclerotic heart disease of native coronary artery without angina pectoris; E11.9 Type 2 diabetes mellitus without complications; K21.9 Gastro-esophageal reflux disease without esophagitis; E66.9 Obesity, unspecified; E78.5 Hyperlipidemia, unspecified; I11.0 Hypertensive heart disease with heart failure; I50.22 Chronic systolic (congestive) heart failure; I08.2 Rheumatic disorders of both aortic and tricuspid valves; Z79.01 Long term (current) use of anticoagulants; Z79.899 Other long term (current) drug therapy; Z90.81 Acquired absence of spleen; Z80.6 Family history of leukemia; Z83.2 Family history of diseases of the blood and blood-forming organs and certain disorders involving the immune mechanism; Z79.4 Long term (current) use of insulin; Z20.822 Contact with and (suspected) exposure to COVID-19; Z68.31 Body mass index [BMI] 31.0-31.9, adult
CPT/HCPCS: 96376 ×2; 96368; 96365; 96366 ×2; 96375; 99291; 36415; 93005; 93306; 97162; 97166; 92610; 83880; 80053 ×2; 80048 ×2; 83735 ×2; 84484; 85025 ×2; 85027; 85610; 85730; 83036; 87636; 71046; 70450; G0378 ×3; J1940; J2765; J2405; J3475; C9113 ×3; 96367

== ENCOUNTER → 2023-01-24 | Outpatient (CLI) | payer MEDICARE ==
[~2023-01-24] MED LIST changes: -ACETAMINOPHEN TAB 500 MG TAB PO PRN; -HEPARIN SODIUM,PORCINE/PF 5,000 UNIT/0.5 ML SYRINGE SQ PRN; +LEUPROLIDE ACET 11.25MG SYRGKIT IM NR; -Pre Op ABX Message 1 EACH MISC MISCELLANE ONE
[2023-01-24 13:50] VITALS: BP 163/76; PULSE 75; RESP 16; TEMP 97.4
== END ==
LOC: PROCWHC3 13:35
PROVIDERS: ATTEND Internal Medicine Hematology & Oncology
DX: C50.221 Malignant neoplasm of upper-inner quadrant of right male breast (principal)
CPT/HCPCS: 96402; J1950

== ENCOUNTER 2023-02-26 06:40 | Inpatient (IN) | payer MEDICARE ==
[2023-02-26] MEDS ORDERED: SODIUM CHLORIDE 0.9% 500 ML 500 ML IV STA (07:04)
[2023-02-26] MEDS ORDERED: HYDROmorphone 0.5 MG/0.5 ML SYRINGE IVP STA (07:05)
--- NOTE | 2023-02-26 07:12 | ED ---
Abdominal Pain HPI - General Chief Complaint: Abdominal Pain Stated Complaint: Abdominal Pain Time Seen by Provider: 02/26/23 06:55 Source: patient, EMS, RN notes reviewed, old records reviewed Mode of arrival: EMS Limitations: no limitations - History of Present Illness Initial Comments: 77-year-old male, alert and oriented 4, presents to the emergency room with left upper quadrant pain and nausea. Patient states he is currently being treated with radiation for liver mass, last treatment 2 weeks ago. 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 fib and hyperlipidemia. MD Complaint: abdominal pain -: days(s) (1) Location: LUQ, RUQ Severity scale (1-10): 8 Consistency: constant Improves With: nothing Worsens With: nothing Context: other (Currently being treated for liver cancer) Treatments Prior to Arrival: NSAIDs - Related Data Home Medications Medication Instructions Recorded Confirmed Atorvastatin [Lipitor] 40 mg PO DAILY 06/04/21 01/24/23 Insulin NPH Hum/Reg Insulin Hm 0 - 50 unit SQ BID PRN 11/02/22 01/24/23 [Novolin 70-30 100 Unit/ml Vial] Ondansetron [Zofran] 8 mg PO Q6H PRN 11/02/22 01/24/23 Furosemide [Lasix] 20 mg PO DAILY 01/24/23 01/24/23 Losartan [Cozaar] 25 mg PO DAILY 01/24/23 01/24/23 Previous Rx's Medication Instructions Recorded Acetaminophen Tab [Tylenol] 650 mg PO Q4H PRN #30 tablet 09/02/22 Apixaban [Eliquis] 5 mg PO BID #60 tab 11/06/22 Calcium Carbonate [Tums] 500 mg PO TID PRN #30 tab 11/06/22 Clopidogrel [Plavix] 75 mg PO DAILY #30 tab 11/06/22 Nitroglycerin Sl Tabs [Nitrostat] 0.4 mg SUBLINGUAL Q5M PRN #30 tab 11/06/22 Diltiazem Oral [Cardizem*] 30 mg PO TID 30 Days #90 tab 11/26/22 Metoprolol Succinate (ER) [Toprol 100 mg PO DAILY 30 Days #30 tab 11/26/22 XL] Nystatin 100,000 Unit/ml Susp 3,000,000 unit PO TID 7 Days #105 11/26/22 [Mycostatin Oral Susp] ml Allergies Allergy/AdvReac Type Severity Reaction Status Date / Time No Known Allergies Allergy Verified 01/24/23 13:43 Review of Systems ROS Statement: Those systems with pertinent positive or pertinent negative responses have been documented in the HPI. ROS Other: All systems not noted in ROS Statement are negative. Past Medical History Past Medical History: Cancer, Diabetes Mellitus, GERD/Reflux, Hyperlipidemia, Hypertension, Osteoarthritis (OA) Additional Past Medical History / Comment(s): SPLEEN CA-2005.. Hx of pancreatitis 2021 History of Any Multi-Drug Resistant Organisms: None Reported Past Surgical History: Orthopedic Surgery Additional Past Surgical History / Comment(s): TOTAL Sejal KNEE. SEJAL SHOULDER rotator cuff surgery. SEJAL carpal tunnel. RT GREAT TOE. SPLENECTOMY. Past Anesthesia/Blood Transfusion Reactions: Postoperative Nausea & Vomiting (PONV) Past Psychological History: No Psychological Hx Reported Smoking Status: Never smoker - Past Family History Brother(s) Family Medical History: Cancer Additional Family Medical History / Comment(s): father with questionable history of [place]'s disease, brother had leukiema Mother Family Medical History: Deep Vein Thrombosis (DVT) General Exam Limitations: no limitations General appearance: alert, in no apparent distress Head exam: Present: atraumatic Eye exam: Present: normal appearance. Absent: scleral icterus, conjunctival injection, periorbital swelling, periorbital tenderness ENT exam: Present: mucous membranes moist Neck exam: Present: normal inspection. Absent: meningismus Respiratory exam: Present: normal lung sounds bilaterally. Absent: respiratory distress, accessory muscle use Cardiovascular Exam: Present: regular rate GI/Abdominal exam: Present: tenderness (LUQ RUQ ) Extremities exam: Present: full ROM, normal capillary refill, pedal edema (+1 BLLE). Absent: calf tenderness Neurological exam: Present: alert, oriented X3 Psychiatric exam: Present: normal affect, normal mood Skin exam: Present: warm, dry, normal color. Absent: cyanosis, diaphoretic, petechiae, pallor Course Vital Signs 02/26/23 02/26/23 02/26/23 06:44 08:32 10:44 Temperature 97.8 F Pulse Rate 85 86 70 Respiratory 18 18 18 Rate Blood Pressure 134/98 130/80 125/70 O2 Sat by Pulse 97 98 96 Oximetry Medical Decision Making - Medical Decision Making Was pt. sent in by a medical professional or institution (, PA, TAPE DUPLICATOR, urgent care, hospital, or snf...) When possible be specific @ -No Did you speak to anyone other than the patient for history (EMS, parent, family, police, friend...)? What history was obtained from this source @ -No Did you review nursing and triage notes (agree or disagree)? Why? @ -I reviewed and agree with nursing and triage notes Were old charts reviewed (outside hosp., previous admission, EMS record, old EKG, old radiological studies, urgent care reports/EKG's, snf records)? Report findings @ -Previous CT and lab results noted below Differential Diagnosis (chest pain, altered mental status, abdominal pain women, abdominal pain men, vaginal bleeding, weakness, fever, dyspnea, syncope, headache, dizziness, GI bleed, back pain, seizure, CVA, palpatations, mental health, musculoskeletal)? @ -Differential Abdominal Pain Men: Appendicitis, cholecystitis, diverticulosis, ischemic bowel, pancreatitis, hepatitis, UTI, gastroenteritis, AAA, incarcerated hernia, bowel obstruction, constipation, inflammatory bowel, hepatitis, peptic ulcer disease, splenic infarction, perforated viscus, testicular torsion, this is not meant to be an all-inclusive list EKG interpreted by me (3pts min.). @ -EKG interpreted by me shows sinus rhythm with a ventricular rate of 83, IA interval 0.184, QRS 0.94, QTC 0.427; compared to old EKG 12/01/22 afib w/rvr X-rays interpreted by me (1pt min.). @ -None done CT interpreted by me (1pt min.). @ - CT interpreted by me shows liver mass with no evidence of bowel obstruction. U/S interpreted by me (1pt. min.). @ -None done What testing was considered but not performed or refused? (CT, X-rays, U/S, labs)? Why? @ -None What meds were considered but not given or refused? Why? @ -None Did you discuss the management of the patient with other professionals (professionals i.e. , PA, TAPE DUPLICATOR, lab, RT, psych nurse, older adult social work specialist, electrocardiograph technician, teacher, parachute officer, case investigator)? Give summary @ -No Was smoking cessation discussed for >3mins.? @ -No Was critical care preformed (if so, how long)? @ -No Were there social determinants of health that impacted care today? How? (Homelessness, low income, unemployed, alcoholism, drug addiction, transportation, low edu. Level, literacy, decrease access to med. care, snf, rehab)? @ -No Was there de-escalation of care discussed even if they declined (Discuss DNR or withdrawal of care, Hospice)? DNR status @ -no What co-morbidities impacted this encounter? (DM, HTN, Smoking, COPD, CAD, Cancer, CVA, ARF, Chemo, Hep., AIDS, mental health diagnosis, sleep apnea, morbid obesity)? @ -Patient has history spleen cancer in 2016, right breast cancer, liver cancer, diabetes, GERD, hyperlipidemia, hypertension, osteoarthritis. Was patient admitted / discharged? Hospital course, mention meds given and route, prescriptions, significant lab abnormalities, going to OR and other pertinent info. @ -Admitted. 77-year-old male presents pale complaining of upper abdominal pain and nausea. States currently being treated with radiation for a malignant liver mass with Dr. Guardado. Last radiation [address] of the abdomen and pelvis was performed on 11/02/2022 showing no acute intra- abdominal process. Enlarging hepatic mass right hepatic lobe and moderate fecal stasis. Today repeat CT shows a new small amount of intraperitoneal ascites. New small to tiny left greater than right pleural effusions. No bowel obstruction. State s fairly stable size of liver mass neoplasm. No acute findings otherwise identified. Hemoglobin 8.9 with hematocrit 29.9, on November 26 of this year 11.0 and 35.4 respectively. Patient denies any hematochezia or hematemesis. Total bili 0.6, AST 40, ALT 23. Troponin negative at 0.014. No significant change in labs compared to previous. Patient was given multiple doses of pain medication along with antiemetics but he continues to be uncomfortable. Patient and family member requesting admis thang. He'll be admitted for intractable abdominal pain with nausea vomiting and anemia. He is hemodynamically stable. Dr. Manriquez agreeable to admission with oncology consult. Case discussed with Dr. Souza. Undiagnosed new problem with uncertain prognosis? @ -No Drug Therapy requiring intensive monitoring for toxicity (Heparin, Nitro, Ins ulin, Cardizem)? @ -No Were any procedures done? @ -No Diagnosis/symptom? @ -Intractable abdominal pain, anemia, hepatocarcinoma Acute, or Chronic, or Acute on Chronic? @ -Acute on chronic Uncomplicated (without systemic symptoms) or Complicated (systemic symptoms)? @ -Complicated Side effects of treatment? @ -No Exacerbation, Progression, or Severe Exacerbation? @ -No Poses a threat to life or bodily function? How? (Chest pain, [place], [place], pneumonia, PE, COPD, DKA, ARF, appy, cholecystitis, CVA, Diverticulitis, Homicidal, Suicidal, threat to staff... and all critical care pts) @ -No - Lab Data Result diagrams: 02/26/23 07:17 02/26/23 07:17 Lab Results 02/26/23 02/26/23 02/26/23 Range/Units 07:17 07:17 07:17 WBC 5.4 (3.8-10.6) k/uL RBC 4.07 L (4.30-5.90) m/uL Hgb 8.9 L (13.0-17.5) gm/dL Hct 29.9 L (39.0-53.0) % MCV 73.4 L (80.0-100.0) fL MCH 21.8 L (25.0-35.0) pg MCHC 29.7 L (31.0-37.0) g/dL RDW 18.2 H (11.5-15.5) % Plt Count 603 H (150-450) k/uL MPV 7.5 Neutrophils % 64 % Lymphocytes % 23 % Monocytes % 9 % Eosinophils % 2 % Basophils % 0 % Neutrophils # 3.4 (1.3-7.7) k/uL Lymphocytes # 1.3 (1.0-4.8) k/uL Monocytes # 0.5 (0-1.0) k/uL Eosinophils # 0.1 (0-0.7) k/uL Basophils # 0.0 (0-0.2) k/uL Hypochromasia Marked Poikilocytosis Moderate Anisocytosis Slight Microcytosis Moderate PT 11.6 (9.0-12.0) sec INR 1.1 (<1.2) APTT 24.6 (22.0-30.0) sec Sodium 135 L (137-145) mmol/L Potassium 3.7 (3.5-5.1) mmol/L Chloride 100 (98-107) mmol/L Carbon Dioxide 28 (22-30) mmol/L Anion Gap 7 mmol/L BUN 19 (9-20) mg/dL Creatinine 0.85 (0.66-1.25) mg/dL Est GFR (CKD-EPI)AfAm >90 (>60 ml/min/1.73 sqM) Est GFR (CKD-EPI)NonAf 85 (>60 ml/min/1.73 sqM) Glucose 148 H (74-99) mg/dL Plasma Lactic Acid Doni (0.7-2.0) mmol/L Calcium 8.0 L (8.4-10.2) mg/dL Total Bilirubin 0.6 (0.2-1.3) mg/dL AST 40 (17-59) U/L ALT 23 (4-49) U/L Alkaline Phosphatase 180 H (38-126) U/L Troponin I (0.000-0.034) ng/mL Total Protein 5.1 L (6.3-8.2) g/dL Albumin 2.5 L (3.5-5.0) g/dL Amylase <30 L (30-110) U/L Lipase 12 L (23-300) U/L 02/26/23 02/26/23 Range/Units 07:17 07:17 WBC (3.8-10.6) k/uL RBC (4.30-5.90) m/uL Hgb (13.0-17.5) gm/dL Hct (39.0-53.0) % MCV (80.0-100.0) fL MCH (25.0-35.0) pg MCHC (31.0-37.0) g/dL RDW (11.5-15.5) % Plt Count (150-450) k/uL MPV Neutrophils % % Lymphocytes % % Monocytes % % Eosinophils % % Basophils % % Neutrophils # (1.3-7.7) k/uL Lymphocytes # (1.0-4.8) k/uL Monocytes # (0-1.0) k/uL Eosinophils # (0-0.7) k/uL Basophils # (0-0.2) k/uL Hypochromasia Poikilocytosis Anisocytosis Microcytosis PT (9.0-12.0) sec INR (<1.2) APTT (22.0-30.0) sec Sodium (137-145) mmol/L Potassium (3.5-5.1) mmol/L Chloride (98-107) mmol/L Carbon Dioxide (22-30) mmol/L Anion Gap mmol/L BUN (9-20) mg/dL Creatinine (0.66-1.25) mg/dL Est GFR (CKD-EPI)AfAm (>60 ml/min/1.73 sqM) Est GFR (CKD-EPI)NonAf (>60 ml/min/1.73 sqM) Glucose (74-99) mg/dL Plasma Lactic Acid Doni 1.8 (0.7-2.0) mmol/L Calcium (8.4-10.2) mg/dL Total Bilirubin (0.2-1.3) mg/dL AST (17-59) U/L ALT (4-49) U/L Alkaline Phosphatase (38-126) U/L Troponin I 0.014 (0.000-0.034) ng/mL Total Protein (6.3-8.2) g/dL Albumin (3.5-5.0) g/dL Amylase (30-110) U/L Lipase (23-300) U/L - EKG Data -: EKG Interpreted by Me EKG shows normal: sinus rhythm (EKG interpreted by me shows sinus rhythm with a ventricular rate of 83, IA interval 0.184, QRS 0.94, QTC 0.427; old EKG 12/01/22 afib w/rvr) Disposition Clinical Impression: Liver cancer, Intractable abdominal pain, Anemia Disposition: ADMITTED IP TO THIS [facility] Decision Date: 02/26/23 Decision Time: 09:49
[2023-02-26] MEDS ORDERED: ONDANSETRON 4 MG/2 ML VIAL IVP STA (07:18)
[2023-02-26 07:43] LABS: INR 1.1 (<1.2); Partial Thromboplastin Time 24.6 sec (22.0-30.0); Prothrombin Time 11.6 sec (9.0-12.0)
[2023-02-26 07:46] LABS: Anisocytosis Slight; Basophils % (A) 0 %; Eosinophils # (A) 0.1 k/uL (0-0.7); Eosinophils % (A) 2 %; HCT 29.9 % (39.0-53.0); HGB 8.9 gm/dL (13.0-17.5); Hypochromasia Marked; Lymphocytes # (A) 1.3 k/uL (1.0-4.8); Lymphocytes % (A) 23 %; MCH 21.8 pg (25.0-35.0); MCHC 29.7 g/dL (31.0-37.0); MCV 73.4 fL (80.0-100.0); Mean Platelet Volume 7.5; Microcytosis Moderate; Monocytes # (A) 0.5 k/uL (0-1.0); Monocytes % (A) 9 %; Neutrophils # (A) 3.4 k/uL (1.3-7.7); Neutrophils % (A) 64 %; Platelet Count 603 k/uL (150-450); Poikilocytosis Moderate; RBC 4.07 m/uL (4.30-5.90); RDW 18.2 % (11.5-15.5); WBC 5.4 k/uL (3.8-10.6)
[2023-02-26 08:03] LABS: ALT 23 U/L (4-49); AST 40 U/L (17-59); African American GFR (CKD) >90 (>60 ml/min/1.73 sqM); Albumin 2.5 g/dL (3.5-5.0); Alkaline Phosphatase 180 U/L (38-126); Amylase <30 U/L (30-110); Anion Gap 7 mmol/L; Blood Urea Nitrogen 19 mg/dL (9-20); Carbon Dioxide 28 mmol/L (22-30); Chloride 100 mmol/L (98-107); Glucose 148 mg/dL (74-99); Lipase 12 U/L (23-300); Non-African American GFR(CKD) 85 (>60 ml/min/1.73 sqM); Potassium 3.7 mmol/L (3.5-5.1); Sodium 135 mmol/L (137-145); Total Bilirubin 0.6 mg/dL (0.2-1.3); Total Protein 5.1 g/dL (6.3-8.2)
[2023-02-26] MEDS ORDERED: METOCLOPRAMIDE 5 MG/ML 2 ML VIAL IVP STA (08:22)
--- NOTE | 2023-02-26 09:10 | CT ---
EXAMINATION TYPE: CT abdomen pelvis w con DATE OF EXAM: 02/26/2023 COMPARISON: CT November 02, 2022 HISTORY: abd pain with nausea. Recent history of liver cancer. History of pancreatitis. CT DLP: 1766.5 mGycm, Automated Exposure Control for Dose Reduction was Utilized. CONTRAST: CT scan of the abdomen and pelvis is performed with oral and with IV Contrast, patient injected with 100 mL of Isovue 300. FINDINGS: LUNG BASES: Small to tiny left greater than right pleural effusions are seen on current study. There is coronary artery calcification and/or stents. There is stable tiny inferior pericardial effusion. LIVER/GB: Large right hepatic heterogeneous mass or neoplasm redemonstrated measuring 15.7 cm long ax is fairly similar in size to prior but more hypodense on current study. Embolization coil centrally a re redemonstrated. New adjacent ascites noted. Persistent rim calcified 1.5 cm dependent gallstone. PANCREAS: Moderate to severe fat replaced atrophy. SPLEEN: Spleen surgically absent with sutures in the left upper quadrant redemonstrated. Some tiny re sidual splenosis axial images 31 and 32 redemonstrated. ADRENALS: No significant abnormality is seen. KIDNEYS: Cortical thinning bilaterally. There is 3.4 cm simple appearing thin-walled cyst midpole lev el right kidney. BOWEL: No significant abnormality is seen. PROSTATE/SEMINAL VESICLES: No gross abnormality seen. LYMPH NODES: No greater than 1cm abdominal or pelvic lymph nodes are appreciated. OSSEOUS STRUCTURES: Severe multilevel spurring in the thoracolumbar spine redemonstrated. There is se adelita disc space narrowing at L3-L4 level redemonstrated. Posterior spur effaces the anterior thecal s ac at L2-L3 level sagittal image 63 similar to prior. Multilevel facet arthropathy. OTHER: Mild intraperitoneal ascites in the abdomen and pelvis on current study. IMPRESSION: New small amount of intraperitoneal ascites. New small to tiny left greater than right pl eural effusions. No bowel obstruction. Fairly stable in size liver mass or neoplasm. No new acute fin dings otherwise identified.
[2023-02-26] MEDS ORDERED: NALOXONE 0.4 MG/ML 1 ML VIAL IV PRN (09:46)
[2023-02-26] MEDS: PANTOPRAZOLE 40 MG/10 ML VIAL IV SCH (10:00)
--- NOTE | 2023-02-26 12:47 | P.CONS ---
History of Present Illness - Reason for Consult Consult date: 02/26/23 History of breast cancer and hepatocellular adenoma - Chief Complaint Abdominal pain - History of Present Illness Mr. 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 He noted this developed after his third treatment of radiation therapy and has been ongoing intermittently since then. He has been taking Tylenol and ibuprofen for this previously with mild relief. He was seen by his primary oncologist Dr. Guardado yesterday, but did not have this pain on his clinical visit. He developed an acute episode of pain around 5:00 yesterday evening, and has become persistent since then and had trouble sleeping. He has had some intermittent dry heaving, denies any persistent vomiting. He has been having constipation, has been taking stool softeners intermittently for this. He did note darker looking stool prior to admission, denies any mike hematochezia or by blood per rectum. Given the pe rsistence of the abdominal pain, he presented to the ED for additional management recommendations. In the ED, he was hemodynamically stable and afebrile. CBC noted WBC 5.4, hemoglobin 8.9 (MCV 73.4), platelet count 603. Coagulation studies are within normal limits. CMP noted alkaline phosphatase 180 with normal hepatocellular enzymes and total bilirubin. Amylase was less than 30 with lipase 12. Troponin was negative. EKG noted sinus rhythm with occasional ectopic premature complexes along with Q waves indicating previous ischemia. There is no ST elevation/depression or T wave inversions indicative of acute ischemia. CT abdomen and pelvis with contrast noted small amount of intraperitoneal ascites compared to CT on 11/02/2022 with no other acute findings. He was given Dilaudid 0.5 mg IV x1, Zofran 4 mg IV x1, Reglan 10 mg IV x1, and normal saline 0.9% 500 cc bolus. He was admitted to internal medicine for additional management. Review of Systems 14 point review of systems was conducted with pertinent positives and negatives as noted per HPI Past Medical History Past Medical History: Cancer, Diabetes Mellitus, GERD/Reflux, Hyperlipidemia, Hypertension, Osteoarthritis (OA) Additional Past Medical History / Comment(s): SPLEEN CA-2006.. Hx of pancreatitis 2021 History of Any Multi-Drug Resistant Organisms: None Reported Past Surgical History: Orthopedic Surgery Additional Past Surgical History / Comment(s): TOTAL Sejal KNEE. SEJAL SHOULDER rotator cuff surgery. SEJAL carpal tunnel. RT GREAT TOE. SPLENECTOMY. Past Anesthesia/Blood Transfusion Reactions: Postoperative Nausea & Vomiting (PONV) Past Psychological History: No Psychological Hx Reported Smoking Status: Never smoker - Past Family History Brother(s) Family Medical History: Cancer Additional Family Medical History / Comment(s): father with questionable history of [place]'s disease, brother had leukiema Mother Family Medical History: Deep Vein Thrombosis (DVT) Medications and Allergies Home Medications Medication Instructions Recorded Confirmed Type Atorvastatin [Lipitor] 40 mg PO DAILY 06/04/21 01/24/23 History Acetaminophen Tab [Tylenol] 650 mg PO Q4H PRN #30 tablet 09/02/22 01/24/23 Rx Insulin NPH Hum/Reg Insulin Hm 0 - 50 unit SQ BID PRN 11/02/22 01/24/23 History [Novolin 70-30 100 Unit/ml Vial] Ondansetron [Zofran] 8 mg PO Q6H PRN 11/02/22 01/24/23 History Apixaban [Eliquis] 5 mg PO BID #60 tab 11/06/22 01/24/23 Rx Calcium Carbonate [Tums] 500 mg PO TID PRN #30 tab 11/06/22 01/24/23 Rx Clopidogrel [Plavix] 75 mg PO DAILY #30 tab 11/06/22 01/24/23 Rx Nitroglycerin Sl Tabs [Nitrostat] 0.4 mg SUBLINGUAL Q5M PRN #30 tab 11/06/22 01/24/23 Rx Diltiazem Oral [Cardizem*] 30 mg PO TID 30 Days #90 tab 11/26/22 01/24/23 Rx Metoprolol Succinate (ER) [Toprol 100 mg PO DAILY 30 Days #30 tab 11/26/22 01/24/23 Rx XL] Nystatin 100,000 Unit/ml Susp 3,000,000 unit PO TID 7 Days #105 11/26/22 01/24/23 Rx [Mycostatin Oral Susp] ml Furosemide [Lasix] 20 mg PO DAILY 01/24/23 01/24/23 History Losartan [Cozaar] 25 mg PO DAILY 01/24/23 01/24/23 History Allergies Allergy/AdvReac Type Severity Reaction Status Date / Time No Known Allergies Allergy Verified 01/24/23 13:43 Physical Exam Vitals: Vital Signs Temp Pulse Resp BP Pulse Ox 02/26/23 11:30 78 18 149/71 95 02/26/23 11:10 72 18 149/71 97 02/26/23 11:00 68 18 125/70 98 02/26/23 10:50 70 18 125/70 98 02/26/23 10:44 70 18 125/70 96 02/26/23 08:32 86 18 130/80 98 02/26/23 06:44 97.8 F 85 18 134/98 97 Intake and Output 02/25/23 02/26/23 02/26/23 22:59 06:59 14:59 Other: Weight 98.43 kg - Constitutional General appearance: cooperative, no acute distress - EENT Eyes: EOMI - Respiratory Respiratory: bilateral: CTA - Cardiovascular Rhythm: regular - Gastrointestinal General gastrointestinal: distended, normal bowel sounds, soft, tenderness Localized gastrointestinal: tender: RUQ, LUQ - Integumentary Integumentary: no rash - Neurologic Neurologic: CNII-XII intact Results CBC & Chem 7: 02/26/23 07:17 02/26/23 07:17 Labs: Abnormal Lab Results - Last 24 Hours (Table) 02/26/23 02/26/23 Range/Units 07:17 07:17 RBC 4.07 L (4.30-5.90) m/uL Hgb 8.9 L (13.0-17.5) gm/dL Hct 29.9 L (39.0-53.0) % MCV 73.4 L (80.0-100.0) fL MCH 21.8 L (25.0-35.0) pg MCHC 29.7 L (31.0-37.0) g/dL RDW 18.2 H (11.5-15.5) % Plt Count 603 H (150-450) k/uL Sodium 135 L (137-145) mmol/L Glucose 148 H (74-99) mg/dL Calcium 8.0 L (8.4-10.2) mg/dL Alkaline Phosphatase 180 H (38-126) U/L Total Protein 5.1 L (6.3-8.2) g/dL Albumin 2.5 L (3.5-5.0) g/dL Amylase <30 L (30-110) U/L Lipase 12 L (23-300) U/L Assessment and Plan (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 Code(s): D75.838 - OTHER THROMBOCYTOSIS SNOMED Code(s): 460451596 (2) Anemia Current Visit: Yes Status: Chronic Code(s): D64.9 - ANEMIA, UNSPECIFIED SNOMED Code(s): 979893311 (3) Intractable abdominal pain Current Visit: Yes Status: Acute Code(s): R10.9 - UNSPECIFIED ABDOMINAL PAIN SNOMED Code(s): 36906029 (4) Liver cancer Current Visit: Yes Status: Chronic Code(s): C22.9 - MALIG NEOPLASM OF LIVER, NOT SPECIFIED PRIMARY OR SEC SNOMED Code(s): 87654618 (5) Cancer of right male breast Current Visit: No Status: Chronic Priority: High Code(s): C50.921 - MALIGNANT NEOPLASM OF UNSPECIFIED SITE OF RIGHT MALE BREAST SNOMED Code(s): 209561544 Plan: #Intractable abdominal pain with dry heaving -Noted to have developed after the third treatment of SBRT for hepatocellular adenoma and has been intermittent since then -Diffuse right upper quadrant and left upper quadrant tenderness on exam -Alkaline phosphatase at 180 is downtrending compared to previous values in clinic with no other LFT abnormalities. Amylase and lipase were normal -No acute findings on CT abdomen/pelvis -This is likely secondary to radiation induced enteritis -Continue IV PPI, IV pain medication, and IV antiemetics for today -We will attempt to convert to oral regimen once pain is better controlled -We discussed that this will gradually resolve over time #Microcytic anemia, thrombocytosis -Hemoglobin 9.6 with platelets 771 in clinic 02/25/2023 -Values on admission are stable compared to measurements in clinic -Anemia work-up including ferritin, iron panel, vitamin B12, folate will be ordered #Hepatic adenoma, stage IIIA invasive ductal carcinoma the right breast -Underwent mastectomy in September 2022 was noted to have 16 positive lymph nodes with PET scan negative for metastatic disease. Found to have BRCA2 mutation -Underwent 2 cycles of adjuvant TC chemotherapy, which was discontinued due to complications with CAD atrial fibrillation -Most recently completed 5 treatments of SBRT to the hepatocellular adenoma on 02/14/2023 -There was a discussion for adjuvant olaparib, but was noted to felt fatigue secondary to radiation therapy and will reevaluate in another month
[2023-02-26] MEDS: LETROZOLE 2.5 MG TAB PO SCH (12:50)
[2023-02-26] MEDS: ONDANSETRON 4 MG/2 ML VIAL IVP PRN ×2 (14:48→20:14)
[2023-02-26] MEDS: HYDROmorphone 0.5 MG/0.5 ML SYRINGE IVP PRN ×2 (14:48→22:30)
[2023-02-26] MEDS ORDERED: ACETAMINOPHEN TAB 325 MG TAB PO PRN (16:23)
[2023-02-26 17:02] LABS: Glucose,Whole Blood 273 mg/dL (70-110)
[2023-02-26] MEDS ORDERED: DEXTROSE 50% SYRINGE 50 ML IVP PRN ×2 (17:16)
[2023-02-26] MEDS: INSULIN ASPART (NovoLOG) 100 UNIT/ML VIAL SQ SCH ×2 (17:55→21:06)
[2023-02-26 20:25] LABS: Glucose,Whole Blood 278 mg/dL (70-110)
[2023-02-26] MEDS: DILTIAZEM ORAL 30 MG TAB PO SCH (21:05)
--- NOTE | 2023-02-26 23:42 | P.HPIM ---
History of Present Illness H&P Date: 02/26/23 Chief Complaint: Abdominal pain Patient is a 77-year-old male with a known history of stage IIIa invasive ductal carcinoma of the right breast status postmastectomy in September 2022, hepatocellular adenoma s/p 5 treatments of SBRT completed on 02/14/2023,, hypertension, hyperlipidemia, GERD, osteoarthritis presents to ER with complaints of abdominal pain. Patient states that she has been having abdominal pain since radiation but worsened this morning. Patient was also having dry heaves. Was also complaining of dark stools for the past 10 days. Denies any bright red blood per rectum. Patient is also having nausea. Abdominal pain is persistent mainly in the right upper quadrant and all over the abdomen. Patient has been afebrile on admission. Patient was tachycardic otherwise. CT of the abdomen pelvis in the ER showed new small amount of intraperitoneal ascites. New small to tiny left greater than right pleural effusions. No bowel obstruction. Fairly stable in size liver mass or neoplasm. No new acute findings otherwise identified. EKG showed sinus rhythm with occasional ectopic premature complexes. Laboratory data showed WBC 5.4 hemoglobin 8.9 and platelets 603 MCV 73.4 Sodium 135 potassium 3.7 chloride 100 bicarb is 28 BUN 19 and creatinine 0.85 and blood sugar is 148. Alk phos 180, albumin 2.5 amylase lipase not elevated. Review of Systems Constitutional: Patient denies any fever or chills . Patient does have generalized weakness. Abdomen: Complains of nausea and dry heaves. Abdominal. pain no diarrhea. Cardiovascular: Patient denies any chest pain or short of breath no palpitations. Respiratory: patient denied any cough . no sputum production. No shortness of breath Neurologic: Patient denied any numbness or tingling headache. Musculoskeletal: Patient denies any complaints of joint swelling or deformity. Skin: Negative Psychiatric: Negative Endocrine: No heat or cold intolerance. No recent weight gain. Genitourinary: No dysuria or hematuria. All other 14 point ROS negative except the above Past Medical History Past Medical History: Cancer, Diabetes Mellitus, GERD/Reflux, Hyperlipidemia, Hypertension, Osteoarthritis (OA) Additional Past Medical History / Comment(s): SPLEEN CA-2005.. Hx of pancreatitis 2021 History of Any Multi-Drug Resistant Organisms: None Reported Past Surgical History: Orthopedic Surgery Additional Past Surgical History / Comment(s): TOTAL Sejal KNEE. SEJAL SHOULDER rotator cuff surgery. SEJAL carpal tunnel. RT GREAT TOE. SPLENECTOMY. Past Anesthesia/Blood Transfusion Reactions: Postoperative Nausea & Vomiting (PONV) Past Psychological History: No Psychological Hx Reported Smoking Status: Never smoker - Past Family History Brother(s) Family Medical History: Cancer Additional Family Medical History / Comment(s): father with questionable history of [place]'s disease, brother had leukiema Mother Family Medical History: Deep Vein Thrombosis (DVT) Medications and Allergies Home Medications Medication Instructions Recorded Confirmed Type Atorvastatin [Lipitor] 20 mg PO DAILY 06/04/21 02/26/23 History Acetaminophen Tab [Tylenol] 650 mg PO Q4H PRN #30 tablet 09/02/22 02/26/23 Rx Insulin NPH Hum/Reg Insulin Hm 0 - 50 unit SQ BID PRN 11/02/22 02/26/23 History [Novolin 70-30 100 Unit/ml Vial] Ondansetron [Zofran] 8 mg PO Q6H PRN 11/02/22 02/26/23 History Apixaban [Eliquis] 5 mg PO BID #60 tab 11/06/22 02/26/23 Rx Calcium Carbonate [Tums] 500 mg PO TID PRN #30 tab 11/06/22 02/26/23 Rx Clopidogrel [Plavix] 75 mg PO DAILY #30 tab 11/06/22 02/26/23 Rx Diltiazem Oral [Cardizem*] 30 mg PO TID 30 Days #90 tab 11/26/22 02/26/23 Rx Metoprolol Succinate (ER) [Toprol 100 mg PO DAILY 30 Days #30 tab 11/26/22 02/26/23 Rx XL] Furosemide [Lasix] 20 mg PO DAILY 01/24/23 02/26/23 History Letrozole [Femara] 2.5 mg PO DAILY 02/26/23 02/26/23 History Losartan [Cozaar] 50 mg PO DAILY 02/26/23 02/26/23 History Nitroglycerin Sl Tabs [Nitrostat] 0.4 mg SL Q5M PRN 02/26/23 02/26/23 History Allergies Allergy/AdvReac Type Severity Reaction Status Date / Time No Known Allergies Allergy Verified 02/26/23 15:00 Physical Exam Vitals: Vital Signs Temp Pulse Resp BP Pulse Ox 02/26/23 13:30 70 16 157/81 98 02/26/23 13:00 68 16 142/74 98 02/26/23 12:30 78 16 160/99 97 02/26/23 12:00 72 18 148/76 98 02/26/23 11:30 78 18 149/71 95 02/26/23 11:10 72 18 149/71 97 02/26/23 11:00 68 18 125/70 98 02/26/23 10:50 70 18 125/70 98 02/26/23 10:44 70 18 125/70 96 02/26/23 08:32 86 18 130/80 98 02/26/23 06:44 97.8 F 85 18 134/98 97 Intake and Output 02/25/23 02/26/23 02/26/23 22:59 06:59 14:59 Intake Total 500 Output Total 70 Balance 430 Intake: Intake, IV Titration 500 Amount Sodium Chloride 0.9% 500 500 ml 500 ml @ 999 mls/hr IV .Q31M STA Rx#:[id number] Output: Urine 70 Other: Weight 98.43 kg PHYSICAL EXAMINATION: Patient is lying in the bed comfortably, no acute distress, awake alert and oriented.. HEENT: Normocephalic. Neck is supple. Pupils reactive. Nostrils clear. Oral cavity is moist. Neck reveals no JVD, carotid bruits, or thyromegaly. CHEST EXAMINATION: Trachea is central. Symmetrical expansion. Lung velazquez clear to auscultation and percussion. CARDIAC: Normal S1, S2 with no gallops. No murmurs ABDOMEN: Soft. Bowel sounds present. Abdominal distended. Right upper quadrant tenderness. Extremities: Bilateral lower extremity trace edema. No clubbing or cyanosis Neurologically awake, alert, oriented x3 with well-coordinated movements. No focal deficits noted Skin: No rash or skin lesions. Psychiatric: Coperative. Nonsuicidal, Musculoskeletal: No joint swelling or deformity. Normal range of motion. Results CBC & Chem 7: 02/26/23 07:17 02/26/23 07:17 Labs: Abnormal Lab Results - Last 24 Hours (Table) 02/26/23 02/26/23 Range/Units 07:17 07:17 RBC 4.07 L (4.30-5.90) m/uL Hgb 8.9 L (13.0-17.5) gm/dL Hct 29.9 L (39.0-53.0) % MCV 73.4 L (80.0-100.0) fL MCH 21.8 L (25.0-35.0) pg MCHC 29.7 L (31.0-37.0) g/dL RDW 18.2 H (11.5-15.5) % Plt Count 603 H (150-450) k/uL Sodium 135 L (137-145) mmol/L Glucose 148 H (74-99) mg/dL Calcium 8.0 L (8.4-10.2) mg/dL Alkaline Phosphatase 180 H (38-126) U/L Total Protein 5.1 L (6.3-8.2) g/dL Albumin 2.5 L (3.5-5.0) g/dL Amylase <30 L (30-110) U/L Lipase 12 L (23-300) U/L Thrombosis Risk Factor Assmnt - DVT/VTE Prophylaxis DVT/VTE Prophylaxis: Pharmacologic Prophylaxis ordered Assessment and Plan Assessment: Intractable abdominal pain with dry heaves without no acute CT Findings. 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 Acute blood loss anemia. Hemoglobin 11.0 on 11/26/2022.Possible GI bleed with dark-colored stools. Microcytic anemia. Rule out iron deficiency. Hepatic adenoma and stage IIIa invasive ductal carcinoma of the right breast. Recently completed 5 treatments of SBRT to the hepatocellular adenoma on 02/14/2023. Hypertension Hyperlipidemia GERD Diabetes type 2 insulin-dependent Paroxysmal atrial fibrillation diagnosed in November 2022 DVT prophylaxis patient is already on Eliquis at home Plan: Patient will be continued on IV hydration and Protonix IV 40 mg daily. Symptomatic management for nausea and vomiting. Eliquis will be on hold. Continue with Cardizem. Continue with pain management. Oncology is on board. Follow-up closely and prognosis is guarded. Discussed with the patient and his family at bedside in detail. Time with Patient: Greater than 30
[2023-02-27 00:18] LABS: % Iron Saturation 4.39 (15.00-50.00)
[2023-02-27] MEDS: HYDROmorphone 0.5 MG/0.5 ML SYRINGE IVP PRN ×2 (03:37→20:43)
[2023-02-27 07:54] LABS: Glucose,Whole Blood 161 mg/dL (70-110)
[2023-02-27] MEDS: PANTOPRAZOLE 40 MG/10 ML VIAL IV SCH ×2 (08:12→08:18)
[2023-02-27] MEDS: ONDANSETRON 4 MG/2 ML VIAL IVP PRN (08:13)
[2023-02-27] MEDS: ATORVASTATIN 20 MG TAB PO SCH (08:18)
[2023-02-27] MEDS: METOPROLOL SUCCINATE (ER) 100 MG TAB.ER.24H PO SCH (08:18)
[2023-02-27] MEDS: LETROZOLE 2.5 MG TAB PO SCH (08:18)
[2023-02-27] MEDS: DILTIAZEM ORAL 30 MG TAB PO SCH ×3 (08:18→20:43)
[2023-02-27] MEDS: INSULIN ASPART (NovoLOG) 100 UNIT/ML VIAL SQ SCH ×4 (08:18→20:43)
[2023-02-27 09:19] LABS: African American GFR (CKD) 96.5 (60.0-200.0); Albumin 2.4 g/dL (3.8-4.9); Albumin/Globulin Ratio 1.04 (1.60-3.17); Anion Gap 7.2 mmol/L (10.00-18.00); BUN/Creat Ratio 18.22 Ratio (12.00-20.00); Blood Urea Nitrogen 16.4 mg/dL (9.0-27.0); Calcium 8.2 mg/dL (8.7-10.3); Carbon Dioxide 28.8 mmol/L (20.0-27.5); Globulin 2.3 g/dL (1.6-3.3); Non-African American GFR(CKD) 83.3 (60.0-200.0); Potassium 3.9 mmol/L (3.5-5.5); Total Bilirubin 0.4 mg/dL (0.30-1.20); Total Protein 4.7 g/dL (6.2-8.2)
[2023-02-27 11:27] LABS: HCT 23.4 % (39.6-50.0); MCH 21.8 pg (27.0-32.0); MCHC 29.9 g/dL (32.0-37.0); MCV 72.9 fL (80.0-97.0); Mean Platelet Volume 9.9 fL (9.5-12.2); NRBC Per 100 WBC 0.4 /100 WBCS (0.0-0.0); Platelet Count 661 X 10*3/uL (140-440); RBC 3.21 X 10*6/uL (4.40-5.60); WBC 7.19 X 10*3/uL (4.50-10.00)
[2023-02-27 11:59] LABS: Glucose,Whole Blood 138 mg/dL (70-110)
[2023-02-27 12:29] LABS: Acanthocytes 2+; Anisocytosis (M) 2+; Basophils # (A) 0.03 X 10*3/uL (0.00-0.10); Basophils % (A) 0.4 %; Elliptocytes 2+; Eosinophils # (A) 0.26 X 10*3/uL (0.04-0.35); Eosinophils % (A) 3.6 %; Hypochromasia (M) 3+; Immature Grans, Automated 0.3 %; Lymphocytes # (A) 1.72 X 10*3/uL (0.90-5.00); Lymphocytes % (A) 23.9 %; Microcytosis (M) 3+; Monocytes # (A) 1.23 X 10*3/uL (0.20-1.00); Monocytes % (A) 17.1 %; Neutrophils # (A) 3.93 X 10*3/uL (1.80-7.70); Neutrophils % (A) 54.7 %; Target Cells 2+
[2023-02-27 17:40] LABS: Glucose,Whole Blood 237 mg/dL (70-110)
[2023-02-27 20:13] LABS: Glucose,Whole Blood 176 mg/dL (70-110)
--- NOTE | 2023-02-28 03:46 | P.PN ---
Subjective Progress Note Date: 02/27/23 Patient is a 77-year-old male with a known history of stage IIIa invasive ductal carcinoma of the right breast status postmastectomy in September 2022, hepatocellular adenoma s/p 5 treatments of SBRT completed on 02/14/2023,, hypertension, hyperlipidemia, GERD, osteoarthritis presents to ER with complaints of abdominal pain. Patient states that she has been having abdominal pain since radiation but worsened this morning. Patient was also having dry heaves. Was also complaining of dark stools for the past 10 days. Denies any bright red blood per rectum. Patient is also having nausea. Abdominal pain is persistent mainly in the right upper quadrant and all over the abdomen. Patient has been afebrile on admission. Patient was tachycardic otherwise. CT of the abdomen pelvis in the ER showed new small amount of intraperitoneal ascites. New small to tiny left greater than right pleural effusions. No bowel obstruction. Fairly stable in size liver mass or neoplasm. No new acute findings otherwise identified. EKG showed sinus rhythm with occasional ectopic premature complexes. Laboratory data showed WBC 5.4 hemoglobin 8.9 and platelets 603 MCV 73.4 Sodium 135 potassium 3.7 chloride 100 bicarb is 28 BUN 19 and creatinine 0.85 and blood sugar is 148. Alk phos 180, albumin 2.5 amylase lipase not elevated. 01/28/2023 Patient is currently resting in the bed. Awake alert and oriented x3. Right upper quadrant abdominal pain is much improved. Still having tenderness but much improved. Patient has been afebrile. No nausea vomiting abdominal pain or diarrhea. Tolerating oral diet. Laboratory data showed WBC 7.1 hemoglobin 7.0 and platelets 661 BUN 16.4 and creatinine 0.9 A1c 7.8 alk phos 176. Patient is being continued on Protonix 40 mg daily. Oncology is on board. Current medications reviewed. Objective - Vital Signs Vital signs: Vital Signs Temp 99.2 F 02/27/23 18:57 Pulse 80 02/27/23 20:00 Resp 16 02/27/23 20:00 BP 146/80 02/27/23 18:57 Pulse Ox 96 02/27/23 18:57 FiO2 Intake & Output 02/27/23 02/27/23 02/28/23 06:59 18:59 06:59 Intake Total 240 Output Total 450 Balance -210 Intake: Oral 240 Output: Urine 450 Other: Voiding Method Urinal Urinal # Voids 2 1 - Exam PHYSICAL EXAMINATION: Patient is lying in the bed comfortably, no acute distress, awake alert and oriented.. HEENT: Normocephalic. Neck is supple. Pupils reactive. Nostrils clear. Oral cavity is moist. Neck reveals no JVD, carotid bruits, or thyromegaly. CHEST EXAMINATION: Trachea is central. Symmetrical expansion. Lung velazquez clear to auscultation and percussion. CARDIAC: Normal S1, S2 with no gallops. No murmurs ABDOMEN: Soft. Bowel sounds present. Abdominal distended. Right upper quadrant tenderness. Extremities: Bilateral lower extremity trace edema. No clubbing or cyanosis Neurologically awake, alert, oriented x3 with well-coordinated movements. No focal deficits noted Skin: No rash or skin lesions. Psychiatric: Coperative. Nonsuicidal, Musculoskeletal: No joint swelling or deformity. Normal range of motion. - Labs CBC & Chem 7: 02/27/23 06:09 02/27/23 06:09 Labs: Abnormal Lab Results - Last 24 Hours (Table) 02/26/23 02/27/23 02/27/23 Range/Units 13:11 06:09 06:09 RBC 3.21 L (4.40-5.60) X 10*6/uL Hgb 7.0 L (13.0-17.0) g/dL Hct 23.4 L (39.6-50.0) % MCV 72.9 L (80.0-97.0) fL MCH 21.8 L (27.0-32.0) pg MCHC 29.9 L (32.0-37.0) g/dL RDW 19.0 H (11.5-14.5) % Plt Count 661 H (140-440) X 10*3/uL Plt Count Comment INCREASED A Absolute Nucleated RBC 0.03 H (0.00-0.00) X 10*3/uL Monocytes # 1.23 H (0.20-1.00) X 10*3/uL NRBC/100 WBC Diff 0.4 H (0.0-0.0) /100 WBCS Carbon Dioxide (20.0-27.5) mmol/L Anion Gap (10.00-18.00) mmol/L Glucose (70-110) mg/dL POC Glucose (mg/dL) (70-110) mg/dL Hemoglobin A1c 7.8 H (0.0-6.0) % Calcium (8.7-10.3) mg/dL Iron 15 L (65-175) ug/dL % Saturation 4.39 L (15.00-50.00) AST (14-35) U/L Alkaline Phosphatase (41-126) U/L Total Protein (6.2-8.2) g/dL Albumin (3.8-4.9) g/dL Albumin/Globulin Ratio (1.60-3.17) g/dL 02/27/23 02/27/23 02/27/23 Range/Units 06:09 07:53 11:58 RBC (4.40-5.60) X 10*6/uL Hgb (13.0-17.0) g/dL Hct (39.6-50.0) % MCV (80.0-97.0) fL MCH (27.0-32.0) pg MCHC (32.0-37.0) g/dL RDW (11.5-14.5) % Plt Count (140-440) X 10*3/uL Plt Count Comment Absolute Nucleated RBC (0.00-0.00) X 10*3/uL Monocytes # (0.20-1.00) X 10*3/uL NRBC/100 WBC Diff (0.0-0.0) /100 WBCS Carbon Dioxide 28.8 H (20.0-27.5) mmol/L Anion Gap 7.20 L (10.00-18.00) mmol/L Glucose 146 H (70-110) mg/dL POC Glucose (mg/dL) 161 H 138 H (70-110) mg/dL Hemoglobin A1c (0.0-6.0) % Calcium 8.2 L (8.7-10.3) mg/dL Iron (65-175) ug/dL % Saturation (15.00-50.00) AST 68 H (14-35) U/L Alkaline Phosphatase 176 H (41-126) U/L Total Protein 4.7 L (6.2-8.2) g/dL Albumin 2.4 L (3.8-4.9) g/dL Albumin/Globulin Ratio 1.04 L (1.60-3.17) g/dL 02/27/23 02/27/23 Range/Units 17:39 20:07 RBC (4.40-5.60) X 10*6/uL Hgb (13.0-17.0) g/dL Hct (39.6-50.0) % MCV (80.0-97.0) fL MCH (27.0-32.0) pg MCHC (32.0-37.0) g/dL RDW (11.5-14.5) % Plt Count (140-440) X 10*3/uL Plt Count Comment Absolute Nucleated RBC (0.00-0.00) X 10*3/uL Monocytes # (0.20-1.00) X 10*3/uL NRBC/100 WBC Diff (0.0-0.0) /100 WBCS Carbon Dioxide (20.0-27.5) mmol/L Anion Gap (10.00-18.00) mmol/L Glucose (70-110) mg/dL POC Glucose (mg/dL) 237 H 176 H (70-110) mg/dL Hemoglobin A1c (0.0-6.0) % Calcium (8.7-10.3) mg/dL Iron (65-175) ug/dL % Saturation (15.00-50.00) AST (14-35) U/L Alkaline Phosphatase (41-126) U/L Total Protein (6.2-8.2) g/dL Albumin (3.8-4.9) g/dL Albumin/Globulin Ratio (1.60-3.17) g/dL Assessment and Plan Assessment: Intractable abdominal pain with dry heaves without no acute CT Findings. 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 Acute blood loss anemia. Hemoglobin 11.0 on 11/26/2022.Possible GI bleed with dark-colored stools. Microcytic anemia. Rule out iron deficiency. Hepatic adenoma and stage IIIa invasive ductal carcinoma of the right breast. Recently completed 5 treatments of SBRT to the hepatocellular adenoma on 02/14/2023. Hypertension Hyperlipidemia GERD Diabetes type 2 insulin-dependent Paroxysmal atrial fibrillation diagnosed in November 2022 DVT prophylaxis patient is already on Eliquis at home Plan: Patient will be continued on IV hydration and Protonix IV 40 mg daily. Symptomatic management for nausea and vomiting. Eliquis will be on hold. Continue with Cardizem. Continue with pain management. Oncology is on board.Monitor H&H. Follow-up closely and prognosis is guarded. Discussed with the patient and his family at bedside in detail. Time with Patient: Greater than 30
[2023-02-28 07:22] LABS: Glucose,Whole Blood 120 mg/dL (70-110)
[2023-02-28] MEDS: INSULIN ASPART (NovoLOG) 100 UNIT/ML VIAL SQ SCH ×4 (07:32→21:12)
[2023-02-28 08:13] LABS: Anisocytosis Slight; Basophils % (A) 0 %; Eosinophils # (A) 0.3 k/uL (0-0.7); Eosinophils % (A) 4 %; HCT 25.9 % (39.0-53.0); HGB 7.6 gm/dL (13.0-17.5); Hypochromasia Marked; Lymphocytes # (A) 1.5 k/uL (1.0-4.8); Lymphocytes % (A) 23 %; MCH 22.1 pg (25.0-35.0); MCHC 29.4 g/dL (31.0-37.0); MCV 75.1 fL (80.0-100.0); Mean Platelet Volume 7.3; Microcytosis Moderate; Monocytes # (A) 0.7 k/uL (0-1.0); Monocytes % (A) 10 %; Neutrophils # (A) 3.9 k/uL (1.3-7.7); Neutrophils % (A) 59 %; Platelet Count 630 k/uL (150-450); Poikilocytosis Slight; RBC 3.45 m/uL (4.30-5.90); RDW 18.1 % (11.5-15.5); WBC 6.6 k/uL (3.8-10.6)
[2023-02-28 08:31] LABS: African American GFR (CKD) >90 (>60 ml/min/1.73 sqM); Anion Gap 4 mmol/L; Blood Urea Nitrogen 15 mg/dL (9-20); Carbon Dioxide 30 mmol/L (22-30); Chloride 101 mmol/L (98-107); Glucose 108 mg/dL (74-99); Non-African American GFR(CKD) >90 (>60 ml/min/1.73 sqM); Potassium 3.7 mmol/L (3.5-5.1); Sodium 135 mmol/L (137-145)
[2023-02-28] MEDS: ATORVASTATIN 20 MG TAB PO SCH (08:33)
[2023-02-28] MEDS: DILTIAZEM ORAL 30 MG TAB PO SCH ×3 (08:33→21:11)
[2023-02-28] MEDS: METOPROLOL SUCCINATE (ER) 100 MG TAB.ER.24H PO SCH (08:33)
[2023-02-28] MEDS: LETROZOLE 2.5 MG TAB PO SCH (08:33)
[2023-02-28] MEDS: PANTOPRAZOLE 40 MG/10 ML VIAL IV SCH (09:02)
[2023-02-28] MEDS: DOCUSATE 100 MG CAP PO SCH ×2 (11:09→21:11)
[2023-02-28 11:13] LABS: Glucose,Whole Blood 256 mg/dL (70-110)
--- NOTE | 2023-02-28 15:22 | P.PN ---
Subjective Progress Note Date: 02/28/23 -No acute events overnight -IV Dilaudid 0.5 mg used twice over the past 24 hours -Continues to have intermittent pain, which is relieved with IV Dilaudid -Continues to have some abdominal discomfort following eating with occasional nausea -He did have formed bowel movement following stool softener, which relieved some discomfort. Following bowel movement was somewhat loose and dark in color with no mike blood Objective - Vital Signs Vital signs: Vital Signs Temp 98.4 F 02/28/23 11:15 Pulse 80 02/28/23 11:15 Resp 18 02/28/23 11:15 BP 156/74 02/28/23 11:15 Pulse Ox 98 02/28/23 11:15 FiO2 Intake & Output 02/27/23 02/28/23 02/28/23 18:59 06:59 18:59 Intake Total 240 Output Total 450 200 100 Balance -210 -200 -100 Intake: Oral 240 Output: Urine 450 200 100 Other: Voiding Method Urinal Urinal # Voids 1 1 # Bowel Movements 1 - Constitutional General appearance: Present: cooperative, no acute distress - EENT Eyes: Present: EOMI - Respiratory Details: Nonlabored breathing Respiratory: bilateral: CTA - Cardiovascular Details: Warm and well-perfused - Gastrointestinal General gastrointestinal: Present: normal bowel sounds, soft, tenderness. Absent: distended Localized gastrointestinal: tender: RUQ, RLQ - Integumentary Integumentary: Present: pale. Absent: rash - Neurologic Neurologic: Present: CNII-XII intact. Absent: focal deficits - Labs CBC & Chem 7: 02/28/23 08:00 02/28/23 08:00 Labs: Abnormal Lab Results - Last 24 Hours (Table) 02/27/23 02/27/23 02/28/23 Range/Units 17:39 20:07 07:21 RBC (4.30-5.90) m/uL Hgb (13.0-17.5) gm/dL Hct (39.0-53.0) % MCV (80.0-100.0) fL MCH (25.0-35.0) pg MCHC (31.0-37.0) g/dL RDW (11.5-15.5) % Plt Count (150-450) k/uL Sodium (137-145) mmol/L Creatinine (0.66-1.25) mg/dL Glucose (74-99) mg/dL POC Glucose (mg/dL) 237 H 176 H 120 H (70-110) mg/dL Calcium (8.4-10.2) mg/dL 02/28/23 02/28/23 02/28/23 Range/Units 08:00 08:00 11:12 RBC 3.45 L (4.30-5.90) m/uL Hgb 7.6 L (13.0-17.5) gm/dL Hct 25.9 L (39.0-53.0) % MCV 75.1 L (80.0-100.0) fL MCH 22.1 L (25.0-35.0) pg MCHC 29.4 L (31.0-37.0) g/dL RDW 18.1 H (11.5-15.5) % Plt Count 630 H (150-450) k/uL Sodium 135 L (137-145) mmol/L Creatinine 0.65 L (0.66-1.25) mg/dL Glucose 108 H (74-99) mg/dL POC Glucose (mg/dL) 256 H (70-110) mg/dL Calcium 8.0 L (8.4-10.2) mg/dL Assessment and Plan (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 Code(s): D75.838 - OTHER THROMBOCYTOSIS SNOMED Code(s): 713988820 (2) Anemia Current Visit: Yes Status: Chronic Code(s): D64.9 - ANEMIA, UNSPECIFIED SNOMED Code(s): 431706746 (3) Intractable abdominal pain Current Visit: Yes Status: Acute Code(s): R10.9 - UNSPECIFIED ABDOMINAL PAIN SNOMED Code(s): 24700174 (4) Liver cancer Current Visit: Yes Status: Chronic Code(s): C22.9 - MALIG NEOPLASM OF LIVER, NOT SPECIFIED PRIMARY OR SEC SNOMED Code(s): 21629686 (5) Cancer of right male breast Current Visit: No Status: Chronic Priority: High Code(s): C50.921 - M ALIGNANT NEOPLASM OF UNSPECIFIED SITE OF RIGHT MALE BREAST SNOMED Code(s): 435915014 Plan: #Intractable abdominal pain with dry heaving -Noted to have developed after the third treatment of SBRT for hepatocellular adenoma completed on 02/14/2023 and has been intermittent since then -Diffuse right upper quadrant and left upper quadrant tenderness on initial exam -Alkaline phosphatase at 180 on admission is downtrending compared to previous values in clinic with no other LFT abnormalities. 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 every 8 hours as needed -Continue IV PPI -This will likely improve with time, and typically requires only supportive care #Microcytic anemia, thrombocytosis -Hemoglobin 9.6 with platelets 771 in clinic 02/25/2023 -Values on admission are stable compared to measurements in clinic -Ferritin 133 with iron saturation 4.39%. 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 Found to have BRCA2 mutation -Underwent 2 cycles of adjuvant TC chemotherapy, which was discontinued due to complications with CAD atrial fibrillation -Most recently completed 5 treatments of SBRT to the hepatocellular adenoma on 02/14/2023 -There was a discussion for adjuvant olaparib, but was noted to felt fatigue secondary to radiation therapy and will reevaluate in another month
[2023-02-28] MEDS: SODIUM FERRIC GLUCONAT-SUCROSE 125 MG in SODIUM CHLORIDE 0.9% 100 ML IVPB SCH (16:51)
[2023-02-28 17:05] LABS: Glucose,Whole Blood 259 mg/dL (70-110)
[2023-02-28] MEDS: guaiFENesin-DM 100-10MG/5ML 10 ML CUP PO PRN ×2 (17:34→23:31)
[2023-02-28 19:44] LABS: Glucose,Whole Blood 261 mg/dL (70-110)
[2023-02-28] MEDS: ONDANSETRON 4 MG TAB PO PRN (21:11)
--- NOTE | 2023-02-28 23:11 | P.PN ---
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 Patient states that she has been having abdominal pain since radiation but worsened this morning. Patient was also having dry heaves. Was also complaining of dark stools for the past 10 days. Denies any bright red blood per rectum. Patient is also having nausea. Abdominal pain is persistent mainly in the right upper quadrant and all over the abdomen. Patient has been afebrile on admission. Patient was tachycardic otherwise. CT of the abdomen pelvis in the ER showed new small amount of intraperitoneal ascites. New small to tiny left greater than right pleural effusions. No bowel obstruction. Fairly stable in size liver mass or neoplasm. No new acute findings otherwise identified. EKG showed sinus rhythm with occasional ectopic premature complexes. Laboratory data showed WBC 5.4 hemoglobin 8.9 and platelets 603 MCV 73.4 Sodium 135 potassium 3.7 chloride 100 bicarb is 28 BUN 19 and creatinine 0.85 and blood sugar is 148. Alk phos 180, albumin 2.5 amylase lipase not elevated. 01/28/2023 Patient is currently resting in the bed. Awake alert and oriented x3. Right upper quadrant abdominal pain is much improved. Still having tenderness but much improved. Patient has been afebrile. No nausea vomiting abdominal pain or diarrhea. Tolerating oral diet. Laboratory data showed WBC 7.1 hemoglobin 7.0 and platelets 661 BUN 16.4 and creatinine 0.9 A1c 7.8 alk phos 176. Patient is being continued on Protonix 40 mg daily. Oncology is on board. 02/28/2023 Patient with no significant abdominal pain, no nausea vomiting however he has poor appetite He says his abdominal pain significantly improved after he had 1 large dark bowel movement, no blood per rectum His hemoglobin actually improved compared to yesterday from 7 up to 7.6 patient currently kept on IV Protonix 40 mg daily, he is not on a blood thinner or S.. Developed by hematology/oncology team and that he has radiation-induced enter itis which is improved gradually Patients with evidence of right hepatic mass 15.7 cm related to his hepatic adenoma and invasive ductal carcinoma and he follow-up with oncologist as an outpatient Objective - Vital Signs Vital signs: Vital Signs Temp 98.4 F 02/28/23 11:15 Pulse 80 02/28/23 11:15 Resp 18 02/28/23 11:15 BP 156/74 02/28/23 11:15 Pulse Ox 98 02/28/23 11:15 FiO2 Intake & Output 02/27/23 02/28/23 02/28/23 18:59 06:59 18:59 Intake Total 240 Output Total 450 200 100 Balance -210 -200 -100 Intake: Oral 240 Output: Urine 450 200 100 Other: Voiding Method Urinal Urinal # Voids 1 1 # Bowel Movements 1 - Exam GENERAL: The patient is alert and oriented x3, not in any acute distress. Well developed, well nourished. HEENT: Pupils are round and equally reacting to light. EOMI. No scleral icterus. No conjunctival pallor. Normocephalic, atraumatic. No pharyngeal erythema. No thyromegaly. CARDIOVASCULAR: S1 and S2 present. No murmurs, rubs, or gallops. PULMONARY: Chest is clear to auscultation, no wheezing . no crackles. -ABDOMEN: Soft, mild periumbilical tenderness, no guarding or rebound tenderness, distended, normoactive bowel sounds. No palpable organomegaly. MUSCULOSKELETAL: No joint swelling or deformity. EXTREMITIES: No cyanosis, clubbing, or pedal edema. NEUROLOGICAL: Gross neurological examination did not reveal any focal deficits. SKIN: No rashes. no petechiae. - Labs CBC & Chem 7: 02/28/23 08:00 02/28/23 08:00 Labs: Abnormal Lab Results - Last 24 Hours (Table) 02/27/23 02/27/23 02/27/23 Range/Units 06:09 17:39 20:07 RBC (4.30-5.90) m/uL Hgb (13.0-17.5) gm/dL Hct (39.0-53.0) % MCV (80.0-100.0) fL MCH (25.0-35.0) pg MCHC (31.0-37.0) g/dL RDW (11.5-15.5) % Plt Count (150-450) k/uL Plt Count Comment INCREASED A Monocytes # 1.23 H (0.20-1.00) X 10*3/uL Sodium (137-145) mmol/L Creatinine (0.66-1.25) mg/dL Glucose (74-99) mg/dL POC Glucose (mg/dL) 237 H 176 H (70-110) mg/dL Calcium (8.4-10.2) mg/dL 02/28/23 02/28/23 02/28/23 Range/Units 07:21 08:00 08:00 RBC 3.45 L (4.30-5.90) m/uL Hgb 7.6 L (13.0-17.5) gm/dL Hct 25.9 L (39.0-53.0) % MCV 75.1 L (80.0-100.0) fL MCH 22.1 L (25.0-35.0) pg MCHC 29.4 L (31.0-37.0) g/dL RDW 18.1 H (11.5-15.5) % Plt Count 630 H (150-450) k/uL Plt Count Comment Monocytes # (0.20-1.00) X 10*3/uL Sodium 135 L (137-145) mmol/L Creatinine 0.65 L (0.66-1.25) mg/dL Glucose 108 H (74-99) mg/dL POC Glucose (mg/dL) 120 H (70-110) mg/dL Calcium 8.0 L (8.4-10.2) mg/dL 02/28/23 Range/Units 11:12 RBC (4.30-5.90) m/uL Hgb (13.0-17.5) gm/dL Hct (39.0-53.0) % MCV (80.0-100.0) fL MCH (25.0-35.0) pg MCHC (31.0-37.0) g/dL RDW (11.5-15.5) % Plt Count (150-450) k/uL Plt Count Comment Monocytes # (0.20-1.00) X 10*3/uL Sodium (137-145) mmol/L Creatinine (0.66-1.25) mg/dL Glucose (74-99) mg/dL POC Glucose (mg/dL) 256 H (70-110) mg/dL Calcium (8.4-10.2) mg/dL Assessment and Plan Assessment: Intractable abdominal pain with dry heaves without no acute CT Findings. 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 Acute blood loss anemia. Hemoglobin 11.0 on 11/26/2022.Possible GI bleed with dark-colored stools. Microcytic anemia. 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 Recently completed 5 treatments of SBRT to the hepatocellular adenoma on 02/14/2023. Hypertension Hyperlipidemia GERD Diabetes type 2 insulin-dependent Paroxysmal atrial fibrillation diagnosed in November 2022 Plan: Continue with symptomatic treatment Hematology/oncology team Continue with pain medication, currently on [place] 7.5 every 4 hours when necessary Monitor hemoglobin and continue with IV Protonix Continue with iron therapy Labs and medication were reviewed.. Continue same treatment. Continue with symptomatic treatment. Resume home medication. Monitor labs and vitals. DVT and GI prophylaxis. Further recommendations as per clinical course of the patient DVT prophylaxis: no Subcutaneous heparin given significant anemia GI Prophylaxis: Ppi Prognosis is guarded
[2023-02-28] MEDS: HYDROcodone/APAP 7.5-325MG 1 EACH TAB PO PRN (23:28)
[2023-03-01 06:58] LABS: Glucose,Whole Blood 110 mg/dL (70-110)
[2023-03-01] MEDS: INSULIN ASPART (NovoLOG) 100 UNIT/ML VIAL SQ SCH ×4 (07:12→20:43)
[2023-03-01 09:14] LABS: Anisocytosis Slight; HCT 29.1 % (39.0-53.0); HGB 8.6 gm/dL (13.0-17.5); Hypochromasia Marked; MCH 22.3 pg (25.0-35.0); MCHC 29.6 g/dL (31.0-37.0); MCV 75.2 fL (80.0-100.0); Mean Platelet Volume 7.8; Microcytosis Moderate; Platelet Count 699 k/uL (150-450); Poikilocytosis Slight; RBC 3.88 m/uL (4.30-5.90); RDW 18.2 % (11.5-15.5); WBC 5.3 k/uL (3.8-10.6)
[2023-03-01] MEDS: DILTIAZEM ORAL 30 MG TAB PO SCH ×3 (09:24→20:42)
[2023-03-01] MEDS: PANTOPRAZOLE 40 MG/10 ML VIAL IV SCH (09:24)
[2023-03-01] MEDS: DOCUSATE 100 MG CAP PO SCH ×2 (09:24→20:42)
[2023-03-01] MEDS: SODIUM FERRIC GLUCONAT-SUCROSE 125 MG in SODIUM CHLORIDE 0.9% 100 ML IVPB SCH (09:24)
[2023-03-01] MEDS: METOPROLOL SUCCINATE (ER) 100 MG TAB.ER.24H PO SCH (09:24)
[2023-03-01] MEDS: LETROZOLE 2.5 MG TAB PO SCH (09:24)
[2023-03-01] MEDS: ATORVASTATIN 20 MG TAB PO SCH (09:24)
[2023-03-01 10:45] LABS: Eosinophils # (M) 0.37 k/uL (0-0.7); Lymphocytes # (M) 1.27 k/uL (1.0-4.8); Monocytes # (M) 0.58 k/uL (0-1.0); Neutrophils # (M) 3.18 k/uL (1.3-7.7); Neutrophils % (M) 60 %; Nucleated Red Blood Cells 0 /100 WBC (0-0); Target Cells Present; Total Cells Counted 200
[2023-03-01 10:46] LABS: Polychromasia Present
[2023-03-01 11:10] LABS: Glucose,Whole Blood 181 mg/dL (70-110)
--- NOTE | 2023-03-01 13:12 | P.PN ---
Subjective Progress Note Date: 03/01/23 Principal diagnosis: abdominal pain/ hx liver and breast cancer At today's visit patient is resting comfortably in bed. He is reporting mild right-sided abdominal pain, rating pain 2 out of 10. He reports pain is well- controlled on oral pain regimen. Denies nausea and vomiting. Patient reports having a bowel movement today, denies any episodes of bleeding. Hemoglobin stab le 8.6 Objective - Vital Signs Vital signs: Vital Signs Temp 98.6 F 03/01/23 06:58 Pulse 81 03/01/23 06:58 Resp 16 03/01/23 06:58 BP 167/86 03/01/23 06:58 Pulse Ox 95 03/01/23 06:58 FiO2 Intake & Output 02/28/23 03/01/23 03/01/23 18:59 06:59 18:59 Output Total 200 300 125 Balance -200 -300 -125 Output: Urine 200 300 125 Other: Voiding Method Urinal # Voids 1 1 1 # Bowel Movements 1 - Constitutional General appearance: Present: average body habitus, no acute distress - EENT Eyes: Present: anicteric sclerae, EOMI ENT: Present: hearing grossly normal - Respiratory Details: breathing even and unlabored - Cardiovascular Details: skin warm and dry - Gastrointestinal Localized gastrointestinal: tender: epigastric periumbilical - Integumentary Integumentary: Present: pale - Neurologic Neurologic Comment(s): grossly intact - Musculoskeletal Musculoskeletal: Present: strength equal bilaterally - Psychiatric Psychiatric: Present: A&O x's 3, appropriate affect, intact judgment & insight - Labs CBC & Chem 7: 03/01/23 07:58 02/28/23 08:00 Labs: Abnormal Lab Results - Last 24 Hours (Table) 02/28/23 02/28/23 03/01/23 Range/Units 17:04 19:40 07:58 RBC 3.88 L (4.30-5.90) m/uL Hgb 8.6 L (13.0-17.5) gm/dL Hct 29.1 L (39.0-53.0) % MCV 75.2 L (80.0-100.0) fL MCH 22.3 L (25.0-35.0) pg MCHC 29.6 L (31.0-37.0) g/dL RDW 18.2 H (11.5-15.5) % Plt Count 699 H (150-450) k/uL POC Glucose (mg/dL) 259 H 261 H (70-110) mg/dL 03/01/23 Range/Units 11:09 RBC (4.30-5.90) m/uL Hgb (13.0-17.5) gm/dL Hct (39.0-53.0) % MCV (80.0-100.0) fL MCH (25.0-35.0) pg MCHC (31.0-37.0) g/dL RDW (11.5-15.5) % Plt Count (150-450) k/uL POC Glucose (mg/dL) 181 H (70-110) mg/dL Assessment and Plan (1) Intractable abdominal pain Current Visit: Yes Status: Acute Priority: High Code(s): R10.9 - UNSPECIFIED ABDOMINAL PAIN SNOMED Code(s): 09672152 (2) Liver cancer Current Visit: Yes Status: Chronic Priority: Medium Code(s): C22.9 - MALIG NEOPLASM OF LIVER, NOT SPECIFIED PRIMARY OR SEC SNOMED Code(s): 74653843 (3) Cancer of right male breast Current Visit: No Status: Chronic Priority: Medium Code(s): C50.921 - MALIGNANT NEOPLASM OF UNSPECIFIED SITE OF RIGHT MALE BREAST SNOMED Code(s): 209286032 (4) Anemia Current Visit: Yes Status: Chronic Priority: High Code(s): D64.9 - ANEMIA, UNSPECIFIED SNOMED Code(s): 782875638 Plan: #Intractable abdominal pain with dry heaving -Noted to have developed after the third treatment of SBRT for hepatocellular adenoma completed on 02/14/2023 and has been intermittent since then -Diffuse right upper quadrant and left upper quadrant tenderness on initial exam -Alkaline phosphatase at 180 on admission is downtrending compared to previous values in clinic with no other LFT abnormalities. 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 Will continue on [place] 7.5/325 mg every 4 hours as needed -Continue Zofran 8 mg p.o. every 8 hours as needed -Continue IV PPI -This will likely improve with time, and typically requires only supportive care #Microcytic anemia, thrombocytosis -Hemoglobin 9.6 with platelets 771 in clinic 02/25/2023 -Values on admission are stable compared to measurements in clinic. Hemoglobin 8.6 today -Ferritin 133 with iron saturation 4.39%. 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 Found to have BRCA2 mutation -Underwent 2 cycles of adjuvant TC chemotherapy, which was discontinued due to complications with CAD atrial fibrillation -Most recently completed 5 treatments of SBRT to the hepatocellular adenoma on 02/14/2023 -There was a discussion for adjuvant olaparib, but was noted to felt fatigue secondary to radiation therapy and will reevaluate in another month
[2023-03-01 17:24] LABS: Glucose,Whole Blood 241 mg/dL (70-110)
[2023-03-01 20:38] LABS: Glucose,Whole Blood 196 mg/dL (70-110)
[2023-03-01] MEDS: guaiFENesin-DM 100-10MG/5ML 10 ML CUP PO PRN (20:43)
[2023-03-01] MEDS: HYDROcodone/APAP 7.5-325MG 1 EACH TAB PO PRN (21:55)
[2023-03-01] MEDS: ONDANSETRON 4 MG TAB PO PRN (22:43)
--- NOTE | 2023-03-01 23:51 | P.PN ---
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 Patient states that she has been having abdominal pain since radiation but worsened this morning. Patient was also having dry heaves. Was also complaining of dark stools for the past 10 days. Denies any bright red blood per rectum. Patient is also having nausea. Abdominal pain is persistent mainly in the right upper quadrant and all over the abdomen. Patient has been afebrile on admission. Patient was tachycardic otherwise. CT of the abdomen pelvis in the ER showed new small amount of intraperitoneal ascites. New small to tiny left greater than right pleural effusions. No bowel obstruction. Fairly stable in size liver mass or neoplasm. No new acute findings otherwise identified. EKG showed sinus rhythm with occasional ectopic premature complexes. Laboratory data showed WBC 5.4 hemoglobin 8.9 and platelets 603 MCV 73.4 Sodium 135 potassium 3.7 chloride 100 bicarb is 28 BUN 19 and creatinine 0.85 and blood sugar is 148. Alk phos 180, albumin 2.5 amylase lipase not elevated. 01/28/2023 Patient is currently resting in the bed. Awake alert and oriented x3. Right upper quadrant abdominal pain is much improved. Still having tenderness but much improved. Patient has been afebrile. No nausea vomiting abdominal pain or diarrhea. Tolerating oral diet. Laboratory data showed WBC 7.1 hemoglobin 7.0 and platelets 661 BUN 16.4 and creatinine 0.9 A1c 7.8 alk phos 176. Patient is being continued on Protonix 40 mg daily. Oncology is on board. 02/28/2023 Patient with no significant abdominal pain, no nausea vomiting however he has poor appetite He says his abdominal pain significantly improved after he had 1 large dark bowel movement, no blood per rectum His hemoglobin actually improved compared to yesterday from 7 up to 7.6 patient currently kept on IV Protonix 40 mg daily, he is not on a blood thinner or S.. Developed by hematology/oncology team and that he has radiation-induced enter itis which is improved gradually Patients with evidence of right hepatic mass 15.7 cm related to his hepatic adenoma and invasive ductal carcinoma and he follow-up with oncologist as an outpatient 03/01/2023 Patient complaining of from mild abdominal discomfort and pain about 2/10 on the right side. He tolerated his diet well He denies nausea vomiting He had dark bowel movement THIS improving His hemoglobin improved 8.6 Requesting on the case Possible discharge in 24-48 Objective - Vital Signs Vital signs: Vital Signs Temp 98.4 F 03/01/23 12:41 Pulse 73 03/01/23 12:41 Resp 18 03/01/23 12:41 BP 156/85 03/01/23 12:41 Pulse Ox 96 03/01/23 12:41 FiO2 Intake & Output 02/28/23 03/01/23 03/01/23 18:59 06:59 18:59 Output Total 200 300 125 Balance -200 -300 -125 Output: Urine 200 300 125 Other: Voiding Method Urinal # Voids 1 1 1 # Bowel Movements 1 - Exam GENERAL: The patient is alert and oriented x3, not in any acute distress. Well developed, well nourished. HEENT: Pupils are round and equally reacting to light. EOMI. No scleral icterus. No conjunctival pallor. Normocephalic, atraumatic. No pharyngeal erythema. No thyromegaly. CARDIOVASCULAR: S1 and S2 present. No murmurs, rubs, or gallops. PULMONARY: Chest is clear to auscultation, no wheezing . no crackles. -ABDOMEN: Soft, mild periumbilical tenderness, no guarding or rebound tenderness, distended, normoactive bowel sounds. No palpable organomegaly. MUSCULOSKELETAL: No joint swelling or deformity. EXTREMITIES: No cyanosis, clubbing, or pedal edema. NEUROLOGICAL: Gross neurological examination did not reveal any focal deficits. SKIN: No rashes. no petechiae. - Labs CBC & Chem 7: 03/01/23 07:58 02/28/23 08:00 Labs: Abnormal Lab Results - Last 24 Hours (Table) 02/28/23 02/28/23 03/01/23 Range/Units 17:04 19:40 07:58 RBC 3.88 L (4.30-5.90) m/uL Hgb 8.6 L (13.0-17.5) gm/dL Hct 29.1 L (39.0-53.0) % MCV 75.2 L (80.0-100.0) fL MCH 22.3 L (25.0-35.0) pg MCHC 29.6 L (31.0-37.0) g/dL RDW 18.2 H (11.5-15.5) % Plt Count 699 H (150-450) k/uL POC Glucose (mg/dL) 259 H 261 H (70-110) mg/dL 03/01/23 Range/Units 11:09 RBC (4.30-5.90) m/uL Hgb (13.0-17.5) gm/dL Hct (39.0-53.0) % MCV (80.0-100.0) fL MCH (25.0-35.0) pg MCHC (31.0-37.0) g/dL RDW (11.5-15.5) % Plt Count (150-450) k/uL POC Glucose (mg/dL) 181 H (70-110) mg/dL Assessment and Plan Assessment: Intractable abdominal pain with dry heaves without no acute CT Findings. 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 Acute blood loss anemia. Hemoglobin 11.0 on 11/26/2022.Possible GI bleed with dark-colored stools. Microcytic anemia. 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 Recently completed 5 treatments of SBRT to the hepatocellular adenoma on 02/14/2023. Hypertension Hyperlipidemia GERD Diabetes type 2 insulin-dependent Paroxysmal atrial fibrillation diagnosed in November 2022 Plan: Continue with symptomatic treatment Hematology/oncology team Continue with pain medication, currently on [place] 7.5 every 4 hours when necessary Monitor hemoglobin and continue with IV Protonix Continue with iron therapy Labs and medication were reviewed.. Continue same treatment. Continue with symptomatic treatment. Resume home medication. Monitor labs and vitals. DVT and GI prophylaxis. Further recommendations as per clinical course of the patient DVT prophylaxis: no Subcutaneous heparin given significant anemia GI Prophylaxis: Ppi Prognosis is guarded
[2023-03-02] MEDS: ONDANSETRON 4 MG TAB PO PRN ×2 (06:44→21:08)
[2023-03-02 07:43] LABS: Glucose,Whole Blood 189 mg/dL (70-110)
[2023-03-02] MEDS: INSULIN ASPART (NovoLOG) 100 UNIT/ML VIAL SQ SCH ×4 (08:29→21:09)
[2023-03-02] MEDS: PANTOPRAZOLE 40 MG/10 ML VIAL IV SCH ×2 (08:30→21:09)
[2023-03-02] MEDS: METOPROLOL SUCCINATE (ER) 100 MG TAB.ER.24H PO SCH (08:32)
[2023-03-02] MEDS: DOCUSATE 100 MG CAP PO SCH ×2 (08:32→21:08)
[2023-03-02] MEDS: ATORVASTATIN 20 MG TAB PO SCH (08:32)
[2023-03-02] MEDS: LETROZOLE 2.5 MG TAB PO SCH (08:33)
[2023-03-02] MEDS: DILTIAZEM ORAL 30 MG TAB PO SCH ×3 (08:33→21:13)
[2023-03-02] MEDS: SODIUM FERRIC GLUCONAT-SUCROSE 125 MG in SODIUM CHLORIDE 0.9% 100 ML IVPB SCH (08:37)
[2023-03-02 10:24] LABS: Anisocytosis Slight; HCT 27.3 % (39.0-53.0); HGB 8.2 gm/dL (13.0-17.5); Hypochromasia Marked; MCH 22.2 pg (25.0-35.0); MCHC 30.1 g/dL (31.0-37.0); MCV 73.9 fL (80.0-100.0); Mean Platelet Volume 7.7; Microcytosis Moderate; Platelet Count 629 k/uL (150-450); Poikilocytosis Slight; RBC 3.69 m/uL (4.30-5.90); RDW 18.2 % (11.5-15.5)
[2023-03-02 10:45] LABS: ALT 29 U/L (4-49); AST 50 U/L (17-59); African American GFR (CKD) >90 (>60 ml/min/1.73 sqM); Albumin 2.2 g/dL (3.5-5.0); Albumin/Globulin Ratio 0.8; Alkaline Phosphatase 163 U/L (38-126); Anion Gap 4 mmol/L; Blood Urea Nitrogen 10 mg/dL (9-20); Calcium 7.8 mg/dL (8.4-10.2); Carbon Dioxide 29 mmol/L (22-30); Chloride 101 mmol/L (98-107); Globulin 2.6 g/dL; Glucose 116 mg/dL (74-99); Non-African American GFR(CKD) >90 (>60 ml/min/1.73 sqM); Potassium 3.7 mmol/L (3.5-5.1); Sodium 134 mmol/L (137-145); Total Bilirubin 0.6 mg/dL (0.2-1.3); Total Protein 4.8 g/dL (6.3-8.2)
[2023-03-02 11:41] LABS: Glucose,Whole Blood 159 mg/dL (70-110)
[2023-03-02 12:26] LABS: Eosinophils # (M) 0.17 k/uL (0-0.7); Neutrophils % (M) 75 %; Nucleated Red Blood Cells 4 /100 WBC (0-0); Total Cells Counted 200
[2023-03-02 12:27] LABS: Lymphocytes # (M) 0.84 k/uL (1.0-4.8); Monocytes # (M) 0.45 k/uL (0-1.0); Target Cells Present; WBC 5.6 k/uL (3.8-10.6)
[2023-03-02 12:34] LABS: Polychromasia Present
--- NOTE | 2023-03-02 12:52 | P.PN ---
Subjective Progress Note Date: 03/02/23 Principal diagnosis: abdominal pain/ hx liver and breast cancer At today's visit patient is resting comfortably in bed. patient reports abdominal pain has significantly improved. He has not needed pain medication since last night. He reports mild nausea last night and this morning, with improvement with Zofran. He is tolerating oral intake. Denies any episodes of bleeding. Hemoglobin stable, 8.2. Objective - Vital Signs Vital signs: Vital Signs Temp 98.0 F 03/02/23 07:40 Pulse 85 03/02/23 07:40 Resp 16 03/02/23 07:40 BP 165/81 03/02/23 07:40 Pulse Ox 96 03/02/23 07:40 FiO2 Intake & Output 03/01/23 03/02/23 03/02/23 18:59 06:59 18:59 Intake Total 118 Output Total 125 350 Balance -125 -350 118 Intake: Oral 118 Output: Urine 125 350 Other: Voiding Method Urinal # Voids 1 1 - Constitutional General appearance: Present: average body habitus, no acute distress - EENT Eyes: Present: anicteric sclerae, EOMI ENT: Present: hearing grossly normal - Respiratory Details: breathing even and unlabored - Cardiovascular Details: skin warm and dry - Integumentary Integumentary: Absent: cyanotic, rash - Neurologic Neurologic Comment(s): grossly intact - Musculoskeletal Musculoskeletal: Present: strength equal bilaterally - Psychiatric Psychiatric: Present: A&O x's 3, appropriate affect, intact judgment & insight - Labs CBC & Chem 7: 03/02/23 10:07 03/02/23 10:07 Labs: Abnormal Lab Results - Last 24 Hours (Table) 03/01/23 03/01/23 03/02/23 Range/Units 17:22 20:37 07:41 RBC (4.30-5.90) m/uL Hgb (13.0-17.5) gm/dL Hct (39.0-53.0) % MCV (80.0-100.0) fL MCH (25.0-35.0) pg MCHC (31.0-37.0) g/dL RDW (11.5-15.5) % Plt Count (150-450) k/uL Lymphocytes # (Manual) (1.0-4.8) k/uL Nucleated RBCs (0-0) /100 WBC Sodium (137-145) mmol/L Creatinine (0.66-1.25) mg/dL Glucose (74-99) mg/dL POC Glucose (mg/dL) 241 H 196 H 189 H (70-110) mg/dL Calcium (8.4-10.2) mg/dL Alkaline Phosphatase (38-126) U/L Total Protein (6.3-8.2) g/dL Albumin (3.5-5.0) g/dL 03/02/23 03/02/23 03/02/23 Range/Units 10:07 10:07 11:39 RBC 3.69 L (4.30-5.90) m/uL Hgb 8.2 L (13.0-17.5) gm/dL Hct 27.3 L (39.0-53.0) % MCV 73.9 L (80.0-100.0) fL MCH 22.2 L (25.0-35.0) pg MCHC 30.1 L (31.0-37.0) g/dL RDW 18.2 H (11.5-15.5) % Plt Count 629 H (150-450) k/uL Lymphocytes # (Manual) 0.84 L (1.0-4.8) k/uL Nucleated RBCs 4 H (0-0) /100 WBC Sodium 134 L (137-145) mmol/L Creatinine 0.64 L (0.66-1.25) mg/dL Glucose 116 H (74-99) mg/dL POC Glucose (mg/dL) 159 H (70-110) mg/dL Calcium 7.8 L (8.4-10.2) mg/dL Alkaline Phosphatase 163 H (38-126) U/L Total Protein 4.8 L (6.3-8.2) g/dL Albumin 2.2 L (3.5-5.0) g/dL Assessment and Plan (1) Intractable abdominal pain Current Visit: Yes Status: Acute Priority: High Code(s): R10.9 - UNSPE CIFIED ABDOMINAL PAIN SNOMED Code(s): 44525017 (2) Liver cancer Current Visit: Yes Status: Chronic Priority: Medium Code(s): C22.9 - MALIG NEOPLASM OF LIVER, NOT SPECIFIED PRIMARY OR SEC SNOMED Code(s): 61580403 (3) Cancer of right male breast Current Visit: No Status: Chronic Priority: Medium Code(s): C50.921 - MALIGNANT NEOPLASM OF UNSPECIFIED SITE OF RIGHT MALE BREAST SNOMED Code(s): 963066768 (4) Anemia Current Visit: Yes Status: Chronic Priority: High Code(s): D64.9 - ANEMIA, UNSPECIFIED SNOMED Code(s): 366101942 Plan: #Intractable abdominal pain with dry heaving -Noted to have developed after the third treatment of SBRT for hepatocellular adenoma completed on 02/14/2023 and has been intermittent since then -Diffuse right upper quadrant and left upper quadrant tenderness on initial exam -Alkaline phosphatase at 180 on admission is downtrending compared to previous values in clinic with no other LFT abnormalities. 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 Will continue on [place] 7.5/325 mg every 4 hours as needed. Pain medications sent to patient's pharmacy for discharge -Continue Zofran 8 mg p.o. every 8 hours as needed -Continue IV PPI -This will likely improve with time, and typically requires only supportive care #Microcytic anemia, thrombocytosis -Hemoglobin 9.6 with platelets 771 in clinic 02/25/2023 -Values on admission are stable compared to measurements in clinic. Hemoglobin 8.2 today. Deniesany episodes of bleeding -Ferritin 133 with iron saturation 4.39%. 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 Found to have BRCA2 mutation -Underwent 2 cycles of adjuvant TC chemotherapy, which was discontinued due to complications with CAD atrial fibrillation -Most recently completed 5 treatments of SBRT to the hepatocellular adenoma on 02/14/2023 -There was a discussion for adjuvant olaparib, but was noted to felt fatigue secondary to radiation therapy and will reevaluate in another month Patient is cleared for discharge from hem/onc standpoint, once cleared by IM and other consulted medical specialties
--- NOTE | 2023-03-02 15:20 | P.GSCN ---
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 Patient's last radiation treatment for his liver cancer was 2 weeks ago. Patient presents to the hospital with increased right- sided abdominal pain. CAT scan of the abdomen had shown new small amount of intraperitoneal ascites. New small tiny left greater than right pleural effusions. No bowel obstruction. Fairly stable in size liver mass or neoplasm. No new acute findings identified. Patient had been anemic. He reports having black multiple black stools for the last month. He has been taking both Aleve and Motrin multiple times throughout the day sometimes both medications during the same day for his abdominal pain. Patient reports a questionable history of peptic ulcer disease. He reports no prior EGD. Last colonoscopy he reports 2 years ago which was negative. Hemoglobin 8.9 on admission did go down to 7.0. He is receiving IV iron was found to have iron deficiency anemia. Patient reports his last bowel movement was yesterday morning and is now brown. He reports better control of his right-sided abdominal pain I with the addition of the [place]. He also takes Eliquis for Afib which is on hold. Patient is followed by oncology service. They did note that patient's pain did develop after radiation treatment and felt that he likely has a radiation induced enteritis. PAST MEDICAL HISTORY: See below PAST SURGICAL HISTORY: See below MEDICATIONS: See below ALLERGIES: See below SOCIAL HISTORY: No illicit drug use. REVIEW OF SYSTEMS: CONSTITUTIONAL: Denies fever or chills. HEENT: Denies blurred vision, vision changes, or eye pain. Denies hemoptysis CARDIOVASCULAR: Denies chest pain or pressure. RESPIRATORY: No shortness of breath. GASTROINTESTINAL: See HPI for pertinent findings HEMATOLOGIC: Denies bleeding disorders. GENITOURINARY: Denies any blood in urine or increased urinary frequency. SKIN: Denies pruitis. Denies rash. PHYSICAL EXAM: VITAL SIGNS: Reviewed GENERAL: Well-developed in no acute distress. HEENT: No sclera icterus. Extraocular movements grossly intact. Moist buccal mucosa. Head is atraumatic, normocephalic. No nasal drainage. ABDOMEN: Soft. Nondistended. Tenderness with palpation of the right upper abdomen NEUROLOGIC: Alert and oriented. Cranial nerves II through XII grossly intact. LABORATORY DATA: WBC 5.6 Hgb 8.2 platelets 629 Sodium 134 potassium 3.7 creatinine 0.64 IMAGING: Computed tomography scan as stated above ASSESSMENT: 1. Iron deficiency anemia with melanotic stools 2. Daily NSAID use 3. Right-sided abdominal pain with recent radiation treatment due to liver cancer. Patient's pain possibly due to radiation enteritis 4. History of liver cancer, breast cancer and cancer of the spleen PLAN: -Plan for EGD tomorrow with Dr. Osman -Increase IV Protonix to twice a day -Continue to hold Eliquis -Avoid NSAIDS -Continue to monitor hemoglobin -Continue to monitor any signs or symptoms of bleeding Physician Psych Rn note has been reviewed by physician. Signing provider agrees with the documented findings, assessment, and plan of care. I have personally seen and examined the patient, reviewed the TECHNICAL ADVISOR /PAs history, exam and MDM and agree with the assessment and plan as written. Based on total visit time, I have performed more than 50% of the visit. As above: Patient with black stools and anemia. CAT scan reviewed. Some intra-abdominal fluid. This may represent subacute hemorrhage although small v olume ascites is more likely. We'll proceed with EGD to evaluate for upper GI source of bleeding. Past Medical History Past Medical History: Cancer, Diabetes Mellitus, GERD/Reflux, Hyperlipidemia, Hypertension, Osteoarthritis (OA) Additional Past Medical History / Comment(s): SPLEEN CA-2005.. Hx of pancreatitis 2021 History of Any Multi-Drug Resistant Organisms: None Reported Past Surgical History: Orthopedic Surgery Additional Past Surgical History / Comment(s): TOTAL Sejal KNEE. SEJAL SHOULDER rotator cuff surgery. SEJAL carpal tunnel. RT GREAT TOE. SPLENECTOMY. Past Anesthesia/Blood Transfusion Reactions: Postoperative Nausea & Vomiting (PONV) Past Psychological History: No Psychological Hx Reported Smoking Status: Never smoker - Past Family History Brother(s) Family Medical History: Cancer Additional Family Medical History / Comment(s): father with questionable history of Neola's disease, brother had leukiema Mother Family Medical History: Deep Vein Thrombosis (DVT) Medications and Allergies Home Medications Medication Instructions Recorded Confirmed Type Atorvastatin [Lipitor] 20 mg PO DAILY 06/04/21 02/26/23 History Acetaminophen Tab [Tylenol] 650 mg PO Q4H PRN #30 tablet 09/02/22 02/26/23 Rx Insulin NPH Hum/Reg Insulin Hm 0 - 50 unit SQ BID PRN 11/02/22 02/26/23 History [Novolin 70-30 100 Unit/ml Vial] Ondansetron [Zofran] 8 mg PO Q6H PRN 11/02/22 02/26/23 History Apixaban [Eliquis] 5 mg PO BID #60 tab 11/06/22 02/26/23 Rx Calcium Carbonate [Tums] 500 mg PO TID PRN #30 tab 11/06/22 02/26/23 Rx Clopidogrel [Plavix] 75 mg PO DAILY #30 tab 11/06/22 02/26/23 Rx Diltiazem Oral [Cardizem*] 30 mg PO TID 30 Days #90 tab 11/26/22 02/26/23 Rx Metoprolol Succinate (ER) [Toprol 100 mg PO DAILY 30 Days #30 tab 11/26/22 02/26/23 Rx XL] Furosemide [Lasix] 20 mg PO DAILY 01/24/23 02/26/23 History Letrozole [Femara] 2.5 mg PO DAILY 02/26/23 02/26/23 History Losartan [Cozaar] 50 mg PO DAILY 02/26/23 02/26/23 History Nitroglycerin Sl Tabs [Nitrostat] 0.4 mg SL Q5M PRN 02/26/23 02/26/23 History Allergies Allergy/AdvReac Type Severity Reaction Status Date / Time No Known Allergies Allergy Verified 02/26/23 15:00 Surgical - Exam Vital Signs Temp Pulse Resp BP Pulse Ox 97.8 F 85 18 134/98 97 02/26/23 06:44 02/26/23 06:44 02/26/23 06:44 02/26/23 06:44 02/26/23 06:44 Results - Labs 03/03/23 06:54 03/03/23 06:54 Abnormal Lab Results - Last 24 Hours (Table) 03/01/23 03/01/23 03/02/23 Range/Units 17:22 20:37 07:41 RBC (4.30-5.90) m/uL Hgb (13.0-17.5) gm/dL Hct (39.0-53.0) % MCV (80.0-100.0) fL MCH (25.0-35.0) pg MCHC (31.0-37.0) g/dL RDW (11.5-15.5) % Plt Count (150-450) k/uL Lymphocytes # (Manual) (1.0-4.8) k/uL Nucleated RBCs (0-0) /100 WBC Sodium (137-145) mmol/L Creatinine (0.66-1.25) mg/dL Glucose (74-99) mg/dL POC Glucose (mg/dL) 241 H 196 H 189 H (70-110) mg/dL Calcium (8.4-10.2) mg/dL Alkaline Phosphatase (38-126) U/L Total Protein (6.3-8.2) g/dL Albumin (3.5-5.0) g/dL 03/02/23 03/02/23 03/02/23 Range/Units 10:07 10:07 11:39 RBC 3.69 L (4.30-5.90) m/uL Hgb 8.2 L (13.0-17.5) gm/dL Hct 27.3 L (39.0-53.0) % MCV 73.9 L (80.0-100.0) fL MCH 22.2 L (25.0-35.0) pg MCHC 30.1 L (31.0-37.0) g/dL RDW 18.2 H (11.5-15.5) % Plt Count 629 H (150-450) k/uL Lymphocytes # (Manual) 0.84 L (1.0-4.8) k/uL Nucleated RBCs 4 H (0-0) /100 WBC Sodium 134 L (137-145) mmol/L Creatinine 0.64 L (0.66-1.25) mg/dL Glucose 116 H (74-99) mg/dL POC Glucose (mg/dL) 159 H (70-110) mg/dL Calcium 7.8 L (8.4-10.2) mg/dL Alkaline Phosphatase 163 H (38-126) U/L Total Protein 4.8 L (6.3-8.2) g/dL Albumin 2.2 L (3.5-5.0) g/dL Diabetes panel 03/02/23 Range/Units 10:07 Sodium 134 L (137-145) mmol/L Potassium 3.7 (3.5-5.1) mmol/L Chloride 101 (98-107) mmol/L Carbon Dioxide 29 (22-30) mmol/L BUN 10 (9-20) mg/dL Creatinine 0.64 L (0.66-1.25) mg/dL Glucose 116 H (74-99) mg/dL Calcium 7.8 L (8.4-10.2) mg/dL AST 50 (17-59) U/L ALT 29 (4-49) U/L Alkaline Phosphatase 163 H (38-126) U/L Total Protein 4.8 L (6.3-8.2) g/dL Albumin 2.2 L (3.5-5.0) g/dL Calcium panel 03/02/23 Range/Units 10:07 Calcium 7.8 L (8.4-10.2) mg/dL Albumin 2.2 L (3.5-5.0) g/dL Pituitary panel 03/02/23 Range/Units 10:07 Sodium 134 L (137-145) mmol/L Potassium 3.7 (3.5-5.1) mmol/L Chloride 101 (98-107) mmol/L Carbon Dioxide 29 (22-30) mmol/L BUN 10 (9-20) mg/dL Creatinine 0.64 L (0.66-1.25) mg/dL Glucose 116 H (74-99) mg/dL Calcium 7.8 L (8.4-10.2) mg/dL Adrenal panel 03/02/23 Range/Units 10:07 Sodium 134 L (137-145) mmol/L Potassium 3.7 (3.5-5.1) mmol/L Chloride 101 (98-107) mmol/L Carbon Dioxide 29 (22-30) mmol/L BUN 10 (9-20) mg/dL Creatinine 0.64 L (0.66-1.25) mg/dL Glucose 116 H (74-99) mg/dL Calcium 7.8 L (8.4-10.2) mg/dL Total Bilirubin 0.6 (0.2-1.3) mg/dL AST 50 (17-59) U/L ALT 29 (4-49) U/L Alkaline Phosphatase 163 H (38-126) U/L Total Protein 4.8 L (6.3-8.2) g/dL Albumin 2.2 L (3.5-5.0) g/dL
[2023-03-02 17:12] LABS: Glucose,Whole Blood 200 mg/dL (70-110)
[2023-03-02] MEDS ORDERED: polyethylene glycoL 3350 17 GM POWD.PACK PO PRN (17:36)
[2023-03-02 20:01] LABS: Glucose,Whole Blood 191 mg/dL (70-110)
--- NOTE | 2023-03-02 20:51 | P.PN ---
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 Patient states that she has been having abdominal pain since radiation but worsened this morning. Patient was also having dry heaves. Was also complaining of dark stools for the past 10 days. Denies any bright red blood per rectum. Patient is also having nausea. Abdominal pain is persistent mainly in the right upper quadrant and all over the abdomen. Patient has been afebrile on admission. Patient was tachycardic otherwise. CT of the abdomen pelvis in the ER showed new small amount of intraperitoneal ascites. New small to tiny left greater than right pleural effusions. No bowel obstruction. Fairly stable in size liver mass or neoplasm. No new acute findings otherwise identified. EKG showed sinus rhythm with occasional ectopic premature complexes. Laboratory data showed WBC 5.4 hemoglobin 8.9 and platelets 603 MCV 73.4 Sodium 135 potassium 3.7 chloride 100 bicarb is 28 BUN 19 and creatinine 0.85 and blood sugar is 148. Alk phos 180, albumin 2.5 amylase lipase not elevated. 01/28/2023 Patient is currently resting in the bed. Awake alert and oriented x3. Right upper quadrant abdominal pain is much improved. Still having tenderness but much improved. Patient has been afebrile. No nausea vomiting abdominal pain or diarrhea. Tolerating oral diet. Laboratory data showed WBC 7.1 hemoglobin 7.0 and platelets 661 BUN 16.4 and creatinine 0.9 A1c 7.8 alk phos 176. Patient is being continued on Protonix 40 mg daily. Oncology is on board. 02/28/2023 Patient with no significant abdominal pain, no nausea vomiting however he has poor appetite He says his abdominal pain significantly improved after he had 1 large dark bowel movement, no blood per rectum His hemoglobin actually improved compared to yesterday from 7 up to 7.6 patient currently kept on IV Protonix 40 mg daily, he is not on a blood thinner or S.. Developed by hematology/oncology team and that he has radiation-induced enter itis which is improved gradually Patients with evidence of right hepatic mass 15.7 cm related to his hepatic adenoma and invasive ductal carcinoma and he follow-up with oncologist as an outpatient 03/01/2023 Patient complaining of from mild abdominal discomfort and pain about 2/10 on the right side. He tolerated his diet well He denies nausea vomiting He had dark bowel movement THIS improving His hemoglobin improved 8.6 Requesting on the case 03/02/2023 Patient is still complaining of from abdominal pain mainly in the right upper abdomen, this could be related to his liver mass. But also patient with drop in hemoglobin suspicious for GI bleed, However his hemoglobin went down today 8.6 d own to 8.2 Patient also with reports of dark stool. Workup showed iron deficiency anemia. Patient is on ferrous sulfate. His Eliquis and Plavix at home doses are on hold Protonix increased 40 mg IV twice a day Surgery team consulted and planned for endoscopy tomorrow for EGD Objective - Vital Signs Vital signs: Vital Signs Temp 98.0 F 03/02/23 07:40 Pulse 85 03/02/23 07:40 Resp 16 03/02/23 07:40 BP 165/81 03/02/23 07:40 Pulse Ox 96 03/02/23 07:40 FiO2 Intake & Output 03/01/23 03/02/23 03/02/23 18:59 06:59 18:59 Intake Total 118 Output Total 125 350 Balance -125 -350 118 Intake: Oral 118 Output: Urine 125 350 Other: Voiding Method Urinal # Voids 1 1 - Exam GENERAL: The patient is alert and oriented x3, not in any acute distress. Well developed, well nourished. HEENT: Pupils are round and equally reacting to light. EOMI. No scleral icterus. No conjunctival pallor. Normocephalic, atraumatic. No pharyngeal erythema. No thyromegaly. CARDIOVASCULAR: S1 and S2 present. No murmurs, rubs, or gallops. PULMONARY: Chest is clear to auscultation, no wheezing . no crackles. -ABDOMEN: Soft, mild periumbilical tenderness, no guarding or rebound tenderness, distended, normoactive bowel sounds. No palpable organomegaly. MUSCULOSKELETAL: No joint swelling or deformity. EXTREMITIES: No cyanosis, clubbing, or pedal edema. NEUROLOGICAL: Gross neurological examination did not reveal any focal deficits. SKIN: No rashes. no petechiae. - Labs CBC & Chem 7: 03/02/23 10:07 03/02/23 10:07 Labs: Abnormal Lab Results - Last 24 Hours (Table) 03/01/23 03/01/23 03/02/23 Range/Units 17:22 20:37 07:41 RBC (4.30-5.90) m/uL Hgb (13.0-17.5) gm/dL Hct (39.0-53.0) % MCV (80.0-100.0) fL MCH (25.0-35.0) pg MCHC (31.0-37.0) g/dL RDW (11.5-15.5) % Plt Count (150-450) k/uL Lymphocytes # (Manual) (1.0-4.8) k/uL Nucleated RBCs (0-0) /100 WBC Sodium (137-145) mmol/L Creatinine (0.66-1.25) mg/dL Glucose (74-99) mg/dL POC Glucose (mg/dL) 241 H 196 H 189 H (70-110) mg/dL Calcium (8.4-10.2) mg/dL Alkaline Phosphatase (38-126) U/L Total Protein (6.3-8.2) g/dL Albumin (3.5-5.0) g/dL 03/02/23 03/02/23 03/02/23 Range/Units 10:07 10:07 11:39 RBC 3.69 L (4.30-5.90) m/uL Hgb 8.2 L (13.0-17.5) gm/dL Hct 27.3 L (39.0-53.0) % MCV 73.9 L (80.0-100.0) fL MCH 22.2 L (25.0-35.0) pg MCHC 30.1 L (31.0-37.0) g/dL RDW 18.2 H (11.5-15.5) % Plt Count 629 H (150-450) k/uL Lymphocytes # (Manual) 0.84 L (1.0-4.8) k/uL Nucleated RBCs 4 H (0-0) /100 WBC Sodium 134 L (137-145) mmol/L Creatinine 0.64 L (0.66-1.25) mg/dL Glucose 116 H (74-99) mg/dL POC Glucose (mg/dL) 159 H (70-110) mg/dL Calcium 7.8 L (8.4-10.2) mg/dL Alkaline Phosphatase 163 H (38-126) U/L Total Protein 4.8 L (6.3-8.2) g/dL Albumin 2.2 L (3.5-5.0) g/dL Assessment and Plan Assessment: Intractable abdominal pain with dry heaves without no acute CT Findings. 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 Acute blood loss anemia. Hemoglobin 11.0 on 11/26/2022.Possible GI bleed with dark-colored stools. Microcytic anemia. 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 R joanna completed 5 treatments of SBRT to the hepatocellular adenoma on 02/14/2023. Hypertension Hyperlipidemia GERD Diabetes type 2 insulin-dependent Paroxysmal atrial fibrillation diagnosed in November 2022 Plan: Surgery consult with the plan for EGD tomorrow Continue with symptomatic treatment Hematology/oncology team Continue with pain medication, currently on [place] 7.5 every 4 hours when necessary Monitor hemoglobin and continue with IV Protonix Continue with iron therapy Labs and medication were reviewed.. Continue same treatment. Continue with symptomatic treatment. Resume home medication. Monitor labs and vitals. DVT and GI prophylaxis. Further recommendations as per clinical course of the patient DVT prophylaxis: no Subcutaneous heparin given significant anemia GI Prophylaxis: Ppi Prognosis is guarded
[2023-03-02] MEDS: HYDROcodone/APAP 7.5-325MG 1 EACH TAB PO PRN (23:52)
[2023-03-02] MEDS: guaiFENesin-DM 100-10MG/5ML 10 ML CUP PO PRN (23:52)
[2023-03-03 07:16] LABS: Glucose,Whole Blood 130 mg/dL (70-110)
[2023-03-03 07:52] LABS: African American GFR (CKD) >90 (>60 ml/min/1.73 sqM); Anion Gap 7 mmol/L; Blood Urea Nitrogen 10 mg/dL (9-20); Carbon Dioxide 28 mmol/L (22-30); Chloride 100 mmol/L (98-107); Glucose 122 mg/dL (74-99); Non-African American GFR(CKD) >90 (>60 ml/min/1.73 sqM); Potassium 3.7 mmol/L (3.5-5.1); Sodium 135 mmol/L (137-145)
[2023-03-03 08:11] LABS: Anisocytosis Slight; HCT 28.6 % (39.0-53.0); HGB 8.2 gm/dL (13.0-17.5); Hypochromasia Marked; MCH 21.6 pg (25.0-35.0); MCHC 28.8 g/dL (31.0-37.0); MCV 74.9 fL (80.0-100.0); Mean Platelet Volume 7.4; Microcytosis Moderate; Platelet Count 599 k/uL (150-450); Poikilocytosis Moderate; RBC 3.82 m/uL (4.30-5.90); RDW 18.8 % (11.5-15.5)
[2023-03-03] MEDS: INSULIN ASPART (NovoLOG) 100 UNIT/ML VIAL SQ SCH ×4 (08:22→20:46)
[2023-03-03] MEDS: DOCUSATE 100 MG CAP PO SCH ×2 (08:23→20:46)
[2023-03-03] MEDS: ATORVASTATIN 20 MG TAB PO SCH (08:23)
[2023-03-03] MEDS: PANTOPRAZOLE 40 MG/10 ML VIAL IV SCH ×2 (08:24→20:46)
[2023-03-03] MEDS: DILTIAZEM ORAL 30 MG TAB PO SCH ×3 (08:24→20:46)
[2023-03-03] MEDS: LETROZOLE 2.5 MG TAB PO SCH (08:25)
[2023-03-03] MEDS: METOPROLOL SUCCINATE (ER) 100 MG TAB.ER.24H PO SCH (08:25)
[2023-03-03 10:05] LABS: Eosinophils # (M) 0.49 k/uL (0-0.7); Lymphocytes # (M) 1.22 k/uL (1.0-4.8); Monocytes # (M) 0.49 k/uL (0-1.0); Neutrophils # (M) 4.03 k/uL (1.3-7.7); Neutrophils % (M) 66 %; Nucleated Red Blood Cells 1 /100 WBC (0-0); Total Cells Counted 200; WBC 6.1 k/uL (3.8-10.6)
[2023-03-03 10:07] LABS: Target Cells Present
[2023-03-03 11:13] LABS: Glucose,Whole Blood 138 mg/dL (70-110)
[2023-03-03] MEDS ORDERED: LIDOCAINE 2% INJ 20 MG/ML (2 ML VIAL) ONE (12:09)
[2023-03-03] MEDS ORDERED: PROPOFOL 10 MG/ML 20 ML VIAL IV ONE (12:09)
[2023-03-03] MEDS ORDERED: IV FLUID CONTINUATION 600 ML IV ONE (12:11)
--- NOTE | 2023-03-03 12:50 | P.PCN ---
Date of Procedure: 03/03/23 Procedure(s) Performed: Preoperative Dx: Abdominal pain, GI bleed Postoperative Dx: Mild gastritis, small hiatal hernia, mild Schatzki's Procedure: EGD with Bx Anesthesia: Sedation Endoscopist: Dr. Osman Specimens: Antrum Endoscopic Procedure: The patient was on the endoscopy table in the left decubitus position. The Olympus gastroscope was inserted into the oropharynx and passed under direct visualization to the region of the third portion of the duodenum. From that point the scope was slowly withdrawn inspecting all surfaces carefully. There were no neoplastic inflammatory or polypoid lesions throughout the duodenum. The pylorus was widely patent. The stomach was carefully inspected. There was mild gastritis present. A biopsy of the antrum took place to rule out H. pylori. Retroflexion revealed a small hiatal hernia. GE junction was present to 7 m above the diaphragmatic hiatus. There was a mild Schatzki's ring formation at the GE junction without inflammatory changes. The esophagus was then carefully examined. There were no neoplastic inflammatory or polypoid lesions throughout the visualized esophagus. The patient was then taken to the recovery room in stable condition per anesthesia guidelines. Recommendations: Resume diet. Source of pain and anemia thought to be related to tumor necrosis and possible subacute hemorrhage from the tumor itself. Follow hemoglobin. Recommend follow-up with his hepatic surgeon at [facility] shortly after discharge.
[2023-03-03 17:04] LABS: Glucose,Whole Blood 191 mg/dL (70-110)
--- NOTE | 2023-03-03 19:26 | P.PN ---
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 Patient states that she has been having abdominal pain since radiation but worsened this morning. Patient was also having dry heaves. Was also complaining of dark stools for the past 10 days. Denies any bright red blood per rectum. Patient is also having nausea. Abdominal pain is persistent mainly in the right upper quadrant and all over the abdomen. Patient has been afebrile on admission. Patient was tachycardic otherwise. CT of the abdomen pelvis in the ER showed new small amount of intraperitoneal ascites. New small to tiny left greater than right pleural effusions. No bowel obstruction. Fairly stable in size liver mass or neoplasm. No new acute findings otherwise identified. EKG showed sinus rhythm with occasional ectopic premature complexes. Laboratory data showed WBC 5.4 hemoglobin 8.9 and platelets 603 MCV 73.4 Sodium 135 potassium 3.7 chloride 100 bicarb is 28 BUN 19 and creatinine 0.85 and blood sugar is 148. Alk phos 180, albumin 2.5 amylase lipase not elevated. 01/28/2023 Patient is currently resting in the bed. Awake alert and oriented x3. Right upper quadrant abdominal pain is much improved. Still having tenderness but much improved. Patient has been afebrile. No nausea vomiting abdominal pain or diarrhea. Tolerating oral diet. Laboratory data showed WBC 7.1 hemoglobin 7.0 and platelets 661 BUN 16.4 and creatinine 0.9 A1c 7.8 alk phos 176. Patient is being continued on Protonix 40 mg daily. Oncology is on board. 02/28/2023 Patient with no significant abdominal pain, no nausea vomiting however he has poor appetite He says his abdominal pain significantly improved after he had 1 large dark bowel movement, no blood per rectum His hemoglobin actually improved compared to yesterday from 7 up to 7.6 patient currently kept on IV Protonix 40 mg daily, he is not on a blood thinner or S.. Developed by hematology/oncology team and that he has radiation-induced enter itis which is improved gradually Patients with evidence of right hepatic mass 15.7 cm related to his hepatic adenoma and invasive ductal carcinoma and he follow-up with oncologist as an outpatient 03/01/2023 Patient complaining of from mild abdominal discomfort and pain about 2/10 on the right side. He tolerated his diet well He denies nausea vomiting He had dark bowel movement THIS improving His hemoglobin improved 8.6 Requesting on the case 03/02/2023 Patient is still complaining of from abdominal pain mainly in the right upper abdomen, this could be related to his liver mass. But also patient with drop in hemoglobin suspicious for GI bleed, However his hemoglobin went down today 8.6 d own to 8.2 Patient also with reports of dark stool. Workup showed iron deficiency anemia. Patient is on ferrous sulfate. His Eliquis and Plavix at home doses are on hold Protonix increased 40 mg IV twice a day Surgery team consulted and planned for endoscopy tomorrow for EGD 03/03/2023 Patient had new onset A. fib last November 04/2023, at the same time he had cardiac cath and stent was placed for him in the coronary artery, currently he is on Eliquis and Plavix. He had EGD with Dr. Osman today which was basically. I discussed the case with Dr. tamez is still recommended the consider holding his anticoagulation. However given his extensive cardiac disease recently he is at risk of both thrombosis and bleeding . Dr. Osman would like hematology/oncology team to decide about when proper time to start anticoagulation again reviewed and discussed with oncology/hematology team and given his cardiac history then the recommendation was to consult cardiology team to see if it is possible to hold Plavix for example and help in the management of his anticoagulation. therefore going to consult cardiology team. Also I called his PCP Dr. Roblero bulge office and I left a message to call me back, still pending. Anyway an appointment made for the patient with the MASKING MACHINE OPERATOR Mile lord on this com ing Wednesday 03/[address] Roblero about is not available on Tuesday. Other than that patient hemodynamically stable, he has mild abdominal discomfort only, no more dark stool, no blood in stool and his hemoglobin is stable at 8.2. Currently both Eliquis and Plavix remain on hold Objective - Vital Signs Vital signs: Vital Signs Temp 98.1 F 03/03/23 11:50 Pulse 74 03/03/23 11:50 Resp 18 03/03/23 11:50 BP 133/79 03/03/23 11:50 Pulse Ox 94 L 03/03/23 11:50 FiO2 Intake & Output 03/02/23 03/03/23 03/03/23 18:59 06:59 18:59 Intake Total 354 100 Output Total 200 150 Balance 354 -200 -50 Intake: IV 100 Oral 354 Output: Urine 200 150 Other: Voiding Method Urinal Urinal Urinal # Voids 0 1 - Exam GENERAL: The patient is alert and oriented x3, not in any acute distress. Well developed, well nourished. HEENT: Pupils are round and equally reacting to light. EOMI. No scleral icterus. No conjunctival pallor. Normocephalic, atraumatic. No pharyngeal erythema. No thyromegaly. CARDIOVASCULAR: S1 and S2 present. No murmurs, rubs, or gallops. PULMONARY: Chest is clear to auscultation, no wheezing . no crackles. -ABDOMEN: Soft, mild periumbilical tenderness, no guarding or rebound tenderness, distended, normoactive bowel sounds. No palpable organomegaly. MUSCULOSKELETAL: No joint swelling or deformity. EXTREMITIES: No cyanosis, clubbing, or pedal edema. NEUROLOGICAL: Gross neurological examination did not reveal any focal deficits. SKIN: No rashes. no petechiae. - Labs CBC & Chem 7: 03/03/23 06:54 03/03/23 06:54 Labs: Abnormal Lab Results - Last 24 Hours (Table) 03/02/23 03/02/23 03/03/23 Range/Units 17:10 20:00 06:54 RBC (4.30-5.90) m/uL Hgb (13.0-17.5) gm/dL Hct (39.0-53.0) % MCV (80.0-100.0) fL MCH (25.0-35.0) pg MCHC (31.0-37.0) g/dL RDW (11.5-15.5) % Plt Count (150-450) k/uL Nucleated RBCs (0-0) /100 WBC Sodium 135 L (137-145) mmol/L Glucose 122 H (74-99) mg/dL POC Glucose (mg/dL) 200 H 191 H (70-110) mg/dL Calcium 8.0 L (8.4-10.2) mg/dL 03/03/23 03/03/23 03/03/23 Range/Units 06:54 07:15 11:11 RBC 3.82 L (4.30-5.90) m/uL Hgb 8.2 L (13.0-17.5) gm/dL Hct 28.6 L (39.0-53.0) % MCV 74.9 L (80.0-100.0) fL MCH 21.6 L (25.0-35.0) pg MCHC 28.8 L (31.0-37.0) g/dL RDW 18.8 H (11.5-15.5) % Plt Count 599 H (150-450) k/uL Nucleated RBCs 1 H (0-0) /100 WBC Sodium (137-145) mmol/L Glucose (74-99) mg/dL POC Glucose (mg/dL) 130 H 138 H (70-110) mg/dL Calcium (8.4-10.2) mg/dL Assessment and Plan Assessment: Acute blood loss anemia. Hemoglobin 11.0 on 11/26/2022.Possible GI bleed with dark-colored stools. EGD is unremarkable for source of bleed. Hemoglobin s table currently Intractable abdominal pain with dry heaves without no acute CT Findings. 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 Microcytic anemia. 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 Recently completed 5 treatments of SBRT to the hepatocellular adenoma on 02/14/2023. Hypertension Hyperlipidemia GERD Diabetes type 2 insulin-dependent Paroxysmal atrial fibrillation diagnosed in November 2022 Plan: Surgery team has cleared the patient for discharge I discussed the case with surgery team and hematology/oncology team. We are going to consult cardiology team tomorrow to help assess in his anticoagulation. Appointment made for him with his PCP MINAL Treadwell on Hematology/oncology team Continue with pain medication, currently on [place] 7.5 every 4 hours when necessary Monitor hemoglobin and continue with IV Protonix Continue with iron therapy Continue with Protonix Labs and medication were reviewed.. Continue same treatment. Continue with symptomatic treatment. Resume home medication. Monitor labs and vitals. DVT and GI prophylaxis. Further recommendations as per clinical course of the patient DVT prophylaxis: no Subcutaneous heparin given significant anemia GI Prophylaxis: Ppi Prognosis is guarded Plan discussed with patient and he is agreeable
[2023-03-03 20:09] LABS: Glucose,Whole Blood 203 mg/dL (70-110)
[2023-03-03] MEDS: ONDANSETRON 4 MG TAB PO PRN (20:52)
[2023-03-03] MEDS: guaiFENesin-DM 100-10MG/5ML 10 ML CUP PO PRN (22:16)
[2023-03-04 06:56] LABS: Glucose,Whole Blood 134 mg/dL (70-110)
[2023-03-04 07:24] VITALS: RESP 20
[2023-03-04] MEDS ORDERED: FERROUS SULFATE 325 MG TAB PO SCH (07:30)
[2023-03-04 07:44] LABS: Anisocytosis Slight; HCT 30.3 % (39.0-53.0); HGB 8.8 gm/dL (13.0-17.5); Hypochromasia Marked; MCH 21.7 pg (25.0-35.0); Mean Platelet Volume 7.3; Microcytosis Moderate; Platelet Count 611 k/uL (150-450); Poikilocytosis Moderate; RBC 4.04 m/uL (4.30-5.90); WBC 6.1 k/uL (3.8-10.6)
[2023-03-04] MEDS: PANTOPRAZOLE 40 MG/10 ML VIAL IV SCH (08:36)
[2023-03-04] MEDS: LETROZOLE 2.5 MG TAB PO SCH (08:37)
[2023-03-04] MEDS: METOPROLOL SUCCINATE (ER) 100 MG TAB.ER.24H PO SCH (08:37)
[2023-03-04] MEDS: ATORVASTATIN 20 MG TAB PO SCH (08:37)
[2023-03-04] MEDS: DILTIAZEM ORAL 30 MG TAB PO SCH (08:37)
[2023-03-04] MEDS: DOCUSATE 100 MG CAP PO SCH (08:37)
[2023-03-04] MEDS: INSULIN ASPART (NovoLOG) 100 UNIT/ML VIAL SQ SCH ×2 (08:37→12:59)
[2023-03-04 11:40] LABS: Glucose,Whole Blood 224 mg/dL (70-110)
[2023-03-04 11:43] VITALS: BMI 29.4
[2023-03-04 12:02] VITALS: BP 158/79; PULSE 79; TEMP 97.9
--- NOTE | 2023-03-04 12:20 | P.PN ---
Subjective Progress Note Date: 03/04/23 CHIEF COMPLAINT: Abdominal pain, GI bleed HISTORY OF PRESENT ILLNESS: Patient is status post EGD revealing mild gastritis, small hiatal hernia and mild Schatzki's ring. Patient's had no further black stools. He is tolerating diet. He does still have the same abdominal pain on the right side and epigastric area. Denies any nausea or vomiting. Afebrile. Hemoglobin stable at 8.8 PHYSICAL EXAM: VITAL SIGNS: Reviewed. GENERAL: Well-developed in no acute distress. HEENT: No sclera icterus. Extraocular movements grossly intact. Moist buccal mucosa. Head is atraumatic, normocephalic. ABDOMEN: Soft. Nondistended. Nontender. NEUROLOGIC: Alert and oriented. Cranial nerves II through XII grossly intact. ASSESSMENT: 1. Anemia and abdominal pain. Source of pain and anemia thought related to tumor necrosis and possible subacute hemorrhage from the tumor itself 2. Mild gastritis, small hiatal hernia and Schatzki's ring noted on EGD PLAN: -Patient can be discharged from surgical standpoint -Okay to resume Plavix. Recommend restarting Eliquis in 4 days -Recommend that patient follows up with hepatic surgeon at [facility] shortly after discharge Physician Dough Mixer Operator note has been reviewed by physician. Signing provider agrees with the documented findings, assessment, and plan of care. I have personally seen and examined the patient, reviewed the BUNGY JUMP MASTER /PAs history, exam and MDM and agree with the assessment and plan as written. Based on total visit time, I have performed more than 50% of the visit. As above: Patient doing well today. No significant pain. Hemoglobin is stable. Discussed anticoagulation situation further with the co-consultants. Would resume Plavix. Hold eloquis for another 4 days. Follow-up with [facility] soon after discharge. Objective - Vital Signs Vital signs: Vital Signs Temp 98 F 03/04/23 07:23 Pulse 81 03/04/23 07:23 Resp 20 03/04/23 07:23 BP 149/78 03/04/23 07:23 Pulse Ox 94 L 03/04/23 07:23 FiO2 Intake & Output 03/03/23 03/04/23 03/04/23 18:59 06:59 18:59 Intake Total 100 540 Output Total 150 Balance -50 540 Intake: IV 100 Oral 540 Output: Urine 150 Other: Voiding Method Urinal Urinal # Voids 1 2 - Labs CBC & Chem 7: 03/04/23 07:13 03/03/23 06:54 Labs: Abnormal Lab Results - Last 24 Hours (Table) 03/03/23 03/03/23 03/03/23 Range/Units 11:11 17:03 20:07 RBC (4.30-5.90) m/uL Hgb (13.0-17.5) gm/dL Hct (39.0-53.0) % MCV (80.0-100.0) fL MCH (25.0-35.0) pg MCHC (31.0-37.0) g/dL RDW (11.5-15.5) % Plt Count (150-450) k/uL POC Glucose (mg/dL) 138 H 191 H 203 H (70-110) mg/dL 03/04/23 03/04/23 Range/Units 06:55 07:13 RBC 4.04 L (4.30-5.90) m/uL Hgb 8.8 L (13.0-17.5) gm/dL Hct 30.3 L (39.0-53.0) % MCV 75.0 L (80.0-100.0) fL MCH 21.7 L (25.0-35.0) pg MCHC 29.0 L (31.0-37.0) g/dL RDW 20.0 H (11.5-15.5) % Plt Count 611 H (150-450) k/uL POC Glucose (mg/dL) 134 H (70-110) mg/dL
--- NOTE | 2023-03-04 16:34 | P.PN ---
Subjective Progress Note Date: 03/04/23 Principal diagnosis: abdominal pain/ hx liver and breast cancer At today's visit patient is resting comfortably in bed. Patient reports abdominal pain has significantly improved. reports early satiety but is tolerating oral intake without nausea and vomiting. Patient reports nausea is only at nighttime and takes Zofran with improvement in symptoms. Patient reports he hasn't needed pain medication last 24 hours. Denies any episodes of bleeding. Status post EGD which was negative for any acute bleeding. Cardiology has been consulted for recommendations for anticoagulation. Hemoglobin stable, 8.8. Objective - Vital Signs Vital signs: Vital Signs Temp 97.9 F 03/04/23 12:01 Pulse 79 03/04/23 12:01 Resp 20 03/04/23 12:01 BP 158/79 03/04/23 12:01 Pulse Ox 96 03/04/23 12:01 FiO2 Intake & Output 03/03/23 03/04/23 03/04/23 18:59 06:59 18:59 Intake Total 100 540 Output Total 150 Balance -50 540 Weight 98.43 kg Intake: IV 100 Oral 540 Output: Urine 150 Other: Voiding Method Urinal Urinal # Voids 1 2 - Constitutional General appearance: Present: average body habitus, no acute distress - EENT Eyes: Present: anicteric sclerae, EOMI ENT: Present: hearing grossly normal - Respiratory Details: breathing is even and unlabored - Cardiovascular Details: skin warm and dry - Integumentary Integumentary: Absent: cyanotic, rash - Neurologic Neurologic: Present: CNII-XII intact - Musculoskeletal Musculoskeletal: Present: strength equal bilaterally - Psychiatric Psychiatric: Present: A&O x's 3, appropriate affect, intact judgment & insight - Labs CBC & Chem 7: 03/04/23 07:13 03/03/23 06:54 Labs: Abnormal Lab Results - Last 24 Hours (Table) 03/03/23 03/03/23 03/04/23 Range/Units 17:03 20:07 06:55 RBC (4.30-5.90) m/uL Hgb (13.0-17.5) gm/dL Hct (39.0-53.0) % MCV (80.0-100.0) fL MCH (25.0-35.0) pg MCHC (31.0-37.0) g/dL RDW (11.5-15.5) % Plt Count (150-450) k/uL POC Glucose (mg/dL) 191 H 203 H 134 H (70-110) mg/dL 03/04/23 03/04/23 Range/Units 07:13 11:38 RBC 4.04 L (4.30-5.90) m/uL Hgb 8.8 L (13.0-17.5) gm/dL Hct 30.3 L (39.0-53.0) % MCV 75.0 L (80.0-100.0) fL MCH 21.7 L (25.0-35.0) pg MCHC 29.0 L (31.0-37.0) g/dL RDW 20.0 H (11.5-15.5) % Plt Count 611 H (150-450) k/uL POC Glucose (mg/dL) 224 H (70-110) mg/dL Assessment and Plan (1) Intractable abdominal pain Status: Acute Priority: High Code(s): R10.9 - UNSPECIFIED ABDOMINAL PAIN SNOMED Code(s): 49681979 (2) Liver cancer Status: Chronic Priority: Medium Code(s): C22.9 - MALIG NEOPLASM OF LIVER, NOT SPECIFIED PRIMARY OR SEC SNOMED Code(s): 66370476 (3) Cancer of right male breast Status: Chronic Priority: Medium Code(s): C50.921 - MALIGNANT NEOPLASM OF UNSPECIFIED SITE OF RIGHT MALE BREAST SNOMED Code(s): 791423211 (4) Anemia Status: Chronic Priority: High Code(s): D64.9 - ANEMIA, UNSPECIFIED SNOMED Code(s): 903491855 Plan: #Intractable abdominal pain with dry heaving -Noted to have developed after the third treatment of SBRT for hepatocellular adenoma completed on 02/14/2023 and has been intermittent since then -Diffuse right upper quadrant and left upper quadrant tenderness on initial exam -Alkaline phosphatase at 180 on admission is downtrending compared to previous values in clinic with no other LFT abnormalities. 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 Will continue on [place] 7.5/325 mg every 4 hours as needed. Pain medications sent to patient's pharmacy for discharge -Continue Zofran 8 mg p.o. every 8 hours as needed -Continue IV PPI -This will likely improve with time, and typically requires only supportive care #Microcytic anemia, thrombocytosis -Hemoglobin 9.6 with platelets 771 in clinic 02/25/2023 -Values on admission are stable compared to measurements in clinic. Hemoglobin 8.8 today. Denies any episodes of bleeding -Ferritin 133 with iron saturation 4.39%. Vitamin B12 and folate were within normal limits -Ferritin may be slightly elevated given recent radiation therapy along with radiation induced enteritis -IV iron ordered, given the low iron saturation along with microcytic anemia and thrombocytosis -S/p EGD which was negative for any acute bleeding. Surgery states anemia may be related to tumor necrosis S/p SBRT or subacute bleed from tumor. They recommend close follow-up with liver specialist. Patient has upcoming appointment with at [facility] on 03/09. Oncology records will be forwarded to his office -Cardiology has been consulted for recommendations for anticoagulation. They recommend the patient can resume plavix and hold Eliquis for 4 days. #Hepatic adenoma, stage IIIA invasive ductal carcinoma the right breast -Underwent mastectomy in September 2022 was noted to have 16 positive lymph nodes with PET scan negative for metastatic disease. Found to have BRCA2 mutation -Underwent 2 cycles of adjuvant TC chemotherapy, which was discontinued due to complications with CAD atrial fibrillation -Most recently completed 5 treatments of SBRT to the hepatocellular adenoma on 02/14/2023 -There was a discussion for adjuvant olaparib, but was noted to felt fatigue secondary to radiation therapy and will reevaluate in another month Patient is cleared for discharge from hem/onc standpoint, once cleared by IM and other consulted medical specialties
--- NOTE | 2023-03-04 22:55 | CONS ---
CONSULTATION CHIEF COMPLAINT: GI bleed. HISTORY OF PRESENT ILLNESS: Mr. Coleman is a 77-year-old gentleman with a history of coronary artery disease, hypertension, diabetes, dyslipidemia with metastatic liver disease and paroxysmal atrial fibrillation, presented to hospital primarily with anemia and underwent an EGD that did not reveal a clear source for his blood loss. I have been consulted to address the issue of what to do with the Plavix and the Eliquis. The surgeon felt that it is relatively safe to resume the Plavix now and Eliquis in 4 days' time, which I think is a reasonable option. I discussed these issues with the patient. He understands and is in agreement with the plan. We will arrange followup in our office after discharge. The patient had a stress test in July of 2022, that did not reveal ischemia. He had an echocardiogram at that time that revealed normal LV systolic function with [id number] aortic regurgitation and mild mitral regurgitation. At the time of my evaluation this morning, the patient is comfortable at rest and is free of symptoms. EKG shows sinus rhythm with poor R-wave progression, suggestive of anteroseptal NM. The patient had an echo in November of 2022, that revealed an ejection fraction of 45%. MEDICATIONS AT HOME: Included: 1. Zofran. 2. Nitrostat. 3. Toprol. 4. Cozaar. 5. Insulin. 6. Cardizem. 7. Plavix. 8. Lipitor. 9. Pender. 10.Colace. ALLERGIES: There are no known drug allergies. FAMILY HISTORY: Negative for premature coronary artery disease. SOCIAL HISTORY: Negative for current smoking, EtOH abuse, or drug abuse. REVIEW OF SYSTEMS: HEENT: Unremarkable. CARDIAC: As described above. RESPIRATORY: Negative. GI: Negative. GENITOURINARY: Negative. ALLERGY/IMMUNOLOGY: Negative. SKIN: Negative. MUSCULOSKELETAL: Significant for arthritis. PSYCHOSOCIAL: Negative. DERM: Negative. CONSTITUTIONAL: Negative. METAL DRILLING MACHINE OPERATOR: Negative. Rest of the system review is not relevant. PHYSICAL EXAMINATION: VITAL SIGNS: The patient is afebrile. Heart rate is 79 beats per minute, blood pressure is 150/72, respiratory rate is 18, O2 saturation is 96% on room air. NECK: There is no jugular venous distention. Carotid upstroke is normal. There is no bruit. CHEST: Reveals good air entry bilaterally. HEART: Reveals first and second heart sounds. No gallop. Has a systolic murmur at the apex. ABDOMEN: Soft. EXTREMITIES: Did not reveal any edema. Peripheral pulses are felt. ASSESSMENT: 1. Coronary artery disease, status post prior angioplasty. 2. Paroxysmal atrial fibrillation. 3. Metastatic liver disease and gastrointestinal bleed. PLAN: We will resume Plavix and Eliquis as per the endoscopist's recommendations. Arrange followup with Cardiology on discharge. MEE / WALTERN: [id number] /
== END 2023-03-04 14:22 | disposition home health service (06) | DRG 394 ==
LOC: EC 06:40 → 5NMEDONC 10:29
PROVIDERS: ADMIT Internal Medicine; ATTEND Internal Medicine
PROC: 0DB78ZX Excision of Stomach, Pylorus, Via Natural or Artificial Opening Endoscopic, Diagnostic (ICD-10-PCS; principal; 2023-03-03 07:45)
DX: K52.0 Gastroenteritis and colitis due to radiation (principal); C78.7 Secondary malignant neoplasm of liver and intrahepatic bile duct; D62 Acute posthemorrhagic anemia; R18.8 Other ascites; C50.921 Malignant neoplasm of unspecified site of right male breast; D50.9 Iron deficiency anemia, unspecified; D75.838 Other thrombocytosis; E78.5 Hyperlipidemia, unspecified; I48.0 Paroxysmal atrial fibrillation; Z79.01 Long term (current) use of anticoagulants; E11.9 Type 2 diabetes mellitus without complications; I10 Essential (primary) hypertension; I25.10 Atherosclerotic heart disease of native coronary artery without angina pectoris; Z95.5 Presence of coronary angioplasty implant and graft; K21.9 Gastro-esophageal reflux disease without esophagitis; K22.2 Esophageal obstruction; K29.70 Gastritis, unspecified, without bleeding; K44.9 Diaphragmatic hernia without obstruction or gangrene; Z17.0 Estrogen receptor positive status [ER+]; Y84.2 Radiological procedure and radiotherapy as the cause of abnormal reaction of the patient, or of later complication, without mention of misadventure at the time of the procedure; Z79.4 Long term (current) use of insulin; Z79.52 Long term (current) use of systemic steroids; Z79.02 Long term (current) use of antithrombotics/antiplatelets; Z79.811 Long term (current) use of aromatase inhibitors; Z79.899 Other long term (current) drug therapy; Z85.05 Personal history of malignant neoplasm of liver; Z90.10 Acquired absence of unspecified breast and nipple; Z90.81 Acquired absence of spleen; Z92.3 Personal history of irradiation
CPT/HCPCS: 36415; 43239; 51798; 74177; 80048; 80053; 82150; 82607; 82728; 82746; 83036; 83540; 83550; 83605; 83690; 84484; 85025; 85027; 85610; 85730; 88305; 93005; 96361; 96374; 96375; 96376; 99285

== ENCOUNTER → 2023-03-07 | Outpatient (CLI) | payer MEDICARE ==
--- NOTE | 2023-03-07 15:45 | US ---
EXAMINATION TYPE: US venous doppler duplex UE LT DATE OF EXAM: 03/07/2023 COMPARISON: NONE CLINICAL INDICATION: Male, 77 years old with history of I80.8 PHLEBITIS AND THROMBOPHLEBITIS OF LUE; Pain and swelling to left arm after hospital stay and IV in left arm SIDE PERFORMED: Left The left internal jugular, subclavian, axillary, brachial, basilic, cephalic, radial, and ulnar veins are evaluated. eft Arm: Negative for DVT, positive for SVT within left cephalic from level of bicep to antecubital f jim Results called to Mile at Dr's office at time of exam IMPRESSION: 1. No ultrasound evidence for deep venous thrombosis of the left upper extremity. 2. Superficial venous thrombosis of the left cephalic vein from the level of the biceps to the antecu bital fossa.
== END | disposition home or self-care (01) ==
LOC: RADUSWWP 14:59
PROVIDERS: ATTEND Family Medicine
DX: I82.612 Acute embolism and thrombosis of superficial veins of left upper extremity (principal); I80.8 Phlebitis and thrombophlebitis of other sites